=== PATIENT | male | born 1975 | race Hispanic/Latino ===

== ENCOUNTER 2017-04-21 20:01 | Emergency (ER) | payer OTHER ==
[2017-04-21] MEDS ORDERED: ACETAMINOPHEN EXTRA STRENGTH 500 MG TABLET ONE (20:23)
[2017-04-21] MEDS ORDERED: IBUPROFEN 600 MG TABLET ONE (20:35)
== END 2017-04-21 22:01 | disposition home or self-care (01) ==
LOC: EDH 20:01
DX: S90.31XA Contusion of right foot, initial encounter (principal); A08.4 Viral intestinal infection, unspecified; W22.8XXA Striking against or struck by other objects, initial encounter; Y93.89 Activity, other specified; Y92.098 Other place in other non-institutional residence as the place of occurrence of the external cause; Y99.8 Other external cause status
CPT/HCPCS: 73630; 87804

== ENCOUNTER 2018-05-08 18:10 | Emergency (ER) | payer OTHER ==
[2018-05-08] MEDS ORDERED: CLINDAMYCIN 600 MG/D5% WATER 50 ML IV ONE (18:52)
[2018-05-08] MEDS ORDERED: KETOROLAC TROMETHAMINE 15MG/ML ONE (18:52)
[2018-05-08 19:03] LABS: BASOPHILS % (AUTO) 0.6 % (0.0-5.0); EOSINOPHILS % (AUTO) 0.6 % (0.0-8.0); HEMATOCRIT 41.5 % (42-54); LYMPHOCYTES % (AUTO) 17.9 % (21.0-51.0); MEAN CORPUSCULAR HEMOGLOBIN 30.2 pg (27.0-33.0); MEAN CORPUSCULAR HGB CONC 34.3 g/dL (32.0-36.0); MEAN CORPUSCULAR VOLUME 88.1 fL (79-99); MONOCYTES % (AUTO) 7.1 % (3.0-13.0); NEUTROPHILS % (AUTO) 73.8 % (40.0-77.0); PLATELET COUNT (AUTO) 258 K/uL (130-400); RED BLOOD CELL COUNT(AUTO) 4.71 MIL/uL (4.50-6.20); RED CELL DISTRIBUTION WIDTH 13.4 % (11.0-15.5); WHITE BLOOD COUNT (AUTO) 10.3 K/uL (4.8-10.8)
[2018-05-08 19:12] LABS: CREATININE 1.2 mg/dL (0.5-1.5); POTASSIUM 3.5 mmol/L (3.5-5.1)
[2018-05-08 19:17] LABS: ALBUMIN 3.3 g/dL (3.5-5.0); BILIRUBIN,TOTAL 0.2 mg/dL (0.2-1.0); TOTAL PROTEIN, SERUM 7.9 g/dL (6.0-8.3)
== END 2018-05-08 20:05 | disposition home or self-care (01) ==
LOC: EDH 18:10
DX: L03.115 Cellulitis of right lower limb (principal)
CPT/HCPCS: 36415; 80053; 85025; 96365; 96375; 99283; J1885; J3490

== ENCOUNTER 2018-05-11 11:01 | Inpatient (IN) | payer SELFPAY ==
[~2018-05-11] VITALS: Ht 185.4 cm; Wt 119.0 kg
[2018-05-11 11:36] LABS: BASOPHILS % (AUTO) 0.4 % (0.0-5.0); EOSINOPHILS % (AUTO) 0.4 % (0.0-8.0); HEMATOCRIT 41.5 % (42-54); LYMPHOCYTES % (AUTO) 19.9 % (21.0-51.0); MEAN CORPUSCULAR HEMOGLOBIN 29.8 pg (27.0-33.0); MEAN CORPUSCULAR HGB CONC 33.9 g/dL (32.0-36.0); MEAN CORPUSCULAR VOLUME 87.9 fL (79-99); MONOCYTES % (AUTO) 7.1 % (3.0-13.0); NEUTROPHILS % (AUTO) 72.2 % (40.0-77.0); PLATELET COUNT (AUTO) 288 K/uL (130-400); RED BLOOD CELL COUNT(AUTO) 4.73 MIL/uL (4.50-6.20); RED CELL DISTRIBUTION WIDTH 13.7 % (11.0-15.5); WHITE BLOOD COUNT (AUTO) 6.2 K/uL (4.8-10.8)
[2018-05-11] MEDS ORDERED: CLINDAMYCIN 600 MG/D5% WATER 50 ML IV ONE (11:36)
[2018-05-11 11:53] LABS: CREATININE 1.2 mg/dL (0.5-1.5); POTASSIUM 3.7 mmol/L (3.5-5.1)
[2018-05-11 11:59] LABS: ALBUMIN 3.2 g/dL (3.5-5.0); BILIRUBIN,TOTAL 0.3 mg/dL (0.2-1.0); TOTAL PROTEIN, SERUM 7.6 g/dL (6.0-8.3)
[2018-05-11] MEDS ORDERED: SODIUM CHLORIDE 0.9% 500ML 500 ML IV ONE (13:51)
[2018-05-11] MEDS ORDERED: ZOSYN 3.375GM+NS 50ML 50 ML IV ONE (14:37)
[2018-05-11] MEDS ORDERED: SODIUM CHLORIDE 0.9% 1000ML 1,000 ML IV SCH (16:11)
[2018-05-11] MEDS ORDERED: DOXYCYCLINE 100MG+NS 250ML 250 ML IV SCH (16:15)
[2018-05-11] MEDS ORDERED: ACETAMINOPHEN-CODEINE 300/30MG TAB PO PRN ×2 (16:15)
[2018-05-11] MEDS ORDERED: ACETAMINOPHEN 325 MG TAB PO PRN ×2 (16:15)
[2018-05-11] MEDS ORDERED: HYDRALAZINE HCL 20 MG/ML VIAL IV PRN (16:15)
[2018-05-11] MEDS ORDERED: VANCOMYCIN PROTOCOL PER PHARMACY IV PRN (16:15)
[2018-05-11] MEDS ORDERED: ONDANSETRON HCL 4 MG/2 ML VIAL IV PRN (16:15)
[2018-05-11] MEDS ORDERED: VANCOMYCIN 1GM+NS 250ML 250 ML IV SCH (16:15)
[2018-05-11 16:39] LABS: HEMOGLOBIN A1C 6.1 % (4.0-6.0)
[2018-05-11] MEDS ORDERED: SODIUM CHLORIDE 0.9% 1000ML 1,000 ML IV ONE (17:22)
[2018-05-11] MEDS ORDERED: VANCOMYCIN 1GM+NS 250ML 250 ML IV ONE (17:22)
[2018-05-11 18:47] VITALS: BP 118/74
[2018-05-11] MEDS ORDERED: COMPOUND IV REFRIGERATED 1 EACH IVSOLN MISC PRN (19:45)
[2018-05-11] MEDS ORDERED: SULF1TAB42 PO (22:12)
[2018-05-11] MEDS ORDERED: ACET-66 PO (22:12)
[2018-05-11] MEDS ORDERED: TRAM50TA4 PO (22:12)
[2018-05-11] MEDS ORDERED: CEPH500C2 PO (22:12)
[2018-05-11] MEDS: FAMOTIDINE 20MG TAB 20 MG TAB PO SCH (22:25)
[2018-05-11 23:10] VITALS: BP 105/59
[2018-05-11] MEDS ORDERED: DOXYCYCLINE 100MG+NS 250ML 250 ML IV ONE (23:28)
[2018-05-12 03:15] VITALS: BP 90/48
[2018-05-12 05:54] LABS: HEMATOCRIT 38.8 % (42-54); MEAN CORPUSCULAR HEMOGLOBIN 29.7 pg (27.0-33.0); MEAN CORPUSCULAR HGB CONC 33.1 g/dL (32.0-36.0); MEAN CORPUSCULAR VOLUME 89.9 fL (79-99); PLATELET COUNT (AUTO) 289 K/uL (130-400); RED BLOOD CELL COUNT(AUTO) 4.32 MIL/uL (4.50-6.20); WHITE BLOOD COUNT (AUTO) 6.1 K/uL (4.8-10.8)
[2018-05-12 06:06] LABS: CREATININE 1.1 mg/dL (0.5-1.5); CRP QUANTITATIVE 35.1 mg/L (0.00-9.0); MAGNESIUM 2.1 mg/dL (1.80-2.40); PHOSPHORUS 3.3 mg/dL (2.5-4.9); POTASSIUM 4.2 mmol/L (3.5-5.1)
[2018-05-12] MEDS: VANCOMYCIN 1.75 GM in SODIUM CHLORIDE 0.9% 250 ML IV SCH ×2 (06:35→18:34)
[2018-05-12 08:00] VITALS: BP 94/54
[2018-05-12] MEDS: FAMOTIDINE 20MG TAB 20 MG TAB PO SCH ×2 (08:38→20:08)
[2018-05-12] MEDS: ZOSYN 3.375GM+NS 50ML 50 ML IV SCH ×2 (08:38→16:47)
[2018-05-12] MEDS: ENOXAPARIN SODIUM 40 MG/0.4 ML SYRINGE SQ SCH (09:00)
[2018-05-12 12:00] VITALS: BP 104/70
[2018-05-12] MEDS: SODIUM CHLORIDE 0.9% 1000ML 1,000 ML IV SCH (12:30)
[2018-05-12 16:00] VITALS: BP 105/69
[2018-05-12 19:00] VITALS: BP 126/67
[2018-05-12 23:00] VITALS: BP 108/53
[2018-05-13] VITALS (25 sets, daily range): BP systolic 90–127; BP diastolic 51–81
[2018-05-13] MEDS: ZOSYN 3.375GM+NS 50ML 50 ML IV SCH ×3 (02:49→16:22)
[2018-05-13 06:03] LABS: HEMATOCRIT 41.3 % (42-54); MEAN CORPUSCULAR HEMOGLOBIN 30.4 pg (27.0-33.0); MEAN CORPUSCULAR HGB CONC 34.2 g/dL (32.0-36.0); NUCLEATED RED BLOOD CELLS 0.1 % (0.0-0.19); PLATELET COUNT (AUTO) 287 K/uL (130-400); RED BLOOD CELL COUNT(AUTO) 4.64 MIL/uL (4.50-6.20); RED CELL DISTRIBUTION WIDTH 13.6 % (11.0-15.5); WHITE BLOOD COUNT (AUTO) 6.1 K/uL (4.8-10.8)
[2018-05-13] MEDS: VANCOMYCIN 1.75 GM in SODIUM CHLORIDE 0.9% 250 ML IV SCH ×2 (06:13→18:24)
[2018-05-13] MEDS: SODIUM CHLORIDE 0.9% 1000ML 1,000 ML IV SCH ×5 (06:14→21:08)
[2018-05-13 06:21] LABS: CREATININE 1.1 mg/dL (0.5-1.5); POTASSIUM 3.9 mmol/L (3.5-5.1)
[2018-05-13] MEDS ORDERED: LIDOCAINE PF 2% 5ML ABBOJECT ONE (07:42)
[2018-05-13] MEDS ORDERED: DEXAMETHASONE SOD PHOSPHATE 10MG/ML 1ML VIAL ONE (07:42)
[2018-05-13] MEDS ORDERED: SUCCINYLCHOLINE 200MG/10ML SYR ONE (07:42)
[2018-05-13] MEDS ORDERED: MIDAZOLAM HCL 1 MG/ML 2ML VIAL ONE (07:43)
[2018-05-13] MEDS ORDERED: NEOSTIGMINE 5MG/5ML SYR IV ONE (07:43)
[2018-05-13] MEDS ORDERED: GLYCOPYRROLATE 1 MG/5 ML SYRINGE ONE (07:43)
[2018-05-13] MEDS ORDERED: ROCURONIUM 10MG/1ML SYR 10 MG/ML ML ONE (07:43)
[2018-05-13] MEDS ORDERED: ONDANSETRON HCL 4 MG/2 ML VIAL ONE (07:43)
[2018-05-13] MEDS ORDERED: PROPOFOL 10 MG/ML 20ML VIAL IV ONE ×2 (07:43→07:57)
[2018-05-13] MEDS ORDERED: FENTANYL CITRATE PF 50 MCG/1 ML 2ML VIAL ONE (07:44)
[2018-05-13] MEDS: ENOXAPARIN SODIUM 40 MG/0.4 ML SYRINGE SQ SCH (10:42)
[2018-05-13] MEDS: FAMOTIDINE 20MG TAB 20 MG TAB PO SCH ×2 (10:42→21:08)
[2018-05-14] MEDS: ZOSYN 3.375GM+NS 50ML 50 ML IV SCH ×3 (00:40→17:38)
[2018-05-14 03:28] VITALS: BP 97/54
[2018-05-14] MEDS: SODIUM CHLORIDE 0.9% 1000ML 1,000 ML IV SCH ×2 (04:30→05:13)
[2018-05-14] MEDS: VANCOMYCIN 1.75 GM in SODIUM CHLORIDE 0.9% 250 ML IV SCH ×2 (05:30→18:36)
[2018-05-14 06:18] LABS: HEMATOCRIT 39.3 % (42-54); MEAN CORPUSCULAR HEMOGLOBIN 30.3 pg (27.0-33.0); MEAN CORPUSCULAR HGB CONC 34.2 g/dL (32.0-36.0); MEAN CORPUSCULAR VOLUME 88.6 fL (79-99); PLATELET COUNT (AUTO) 315 K/uL (130-400); RED BLOOD CELL COUNT(AUTO) 4.43 MIL/uL (4.50-6.20); RED CELL DISTRIBUTION WIDTH 13.5 % (11.0-15.5); WHITE BLOOD COUNT (AUTO) 10.2 K/uL (4.8-10.8)
[2018-05-14 06:40] LABS: CREATININE 1.1 mg/dL (0.5-1.5)
[2018-05-14 08:00] VITALS: BP 121/65
[2018-05-14] MEDS: ENOXAPARIN SODIUM 40 MG/0.4 ML SYRINGE SQ SCH (09:00)
[2018-05-14] MEDS: FAMOTIDINE 20MG TAB 20 MG TAB PO SCH ×2 (09:35→19:59)
[2018-05-14 12:00] VITALS: BP 121/73
[2018-05-14 16:00] VITALS: BP 114/70
[2018-05-14 19:00] VITALS: BP 121/75
[2018-05-14 23:43] VITALS: BP 129/65
[2018-05-15] MEDS: ZOSYN 3.375GM+NS 50ML 50 ML IV SCH ×2 (00:28→08:50)
[2018-05-15 04:06] VITALS: BP 121/75
[2018-05-15 05:29] LABS: HEMATOCRIT 41.1 % (42-54); MEAN CORPUSCULAR HEMOGLOBIN 29.5 pg (27.0-33.0); MEAN CORPUSCULAR VOLUME 89.4 fL (79-99); PLATELET COUNT (AUTO) 290 K/uL (130-400); RED CELL DISTRIBUTION WIDTH 13.4 % (11.0-15.5); WHITE BLOOD COUNT (AUTO) 7.2 K/uL (4.8-10.8)
[2018-05-15 05:40] LABS: POTASSIUM 4.2 mmol/L (3.5-5.1)
[2018-05-15] MEDS: VANCOMYCIN 1.75 GM in SODIUM CHLORIDE 0.9% 250 ML IV SCH (06:42)
[2018-05-15 08:00] VITALS: BP 121/66
[2018-05-15] MEDS: FAMOTIDINE 20MG TAB 20 MG TAB PO SCH (08:48)
[2018-05-15] MEDS: ENOXAPARIN SODIUM 40 MG/0.4 ML SYRINGE SQ SCH (08:50)
[2018-05-15 12:00] VITALS: BP 120/64
[2018-05-15] MEDS ORDERED: CLIN300C9 PO (12:02)
== END 2018-05-15 13:10 | disposition home or self-care (01) | DRG 603 ==
LOC: EDH 11:01 → EDHIP 11:02 → 3BH 18:35
PROVIDERS: ADMIT Internal Medicine; ATTEND Internal Medicine
PROC: 0J9L3ZZ Drainage of Right Upper Leg Subcutaneous Tissue and Fascia, Percutaneous Approach (ICD-10-PCS; principal; 2018-05-13 08:00)
DX: L03.115 Cellulitis of right lower limb (principal); L02.415 Cutaneous abscess of right lower limb; E66.9 Obesity, unspecified; B95.62 Methicillin resistant Staphylococcus aureus infection as the cause of diseases classified elsewhere; Z68.34 Body mass index [BMI] 34.0-34.9, adult
CPT/HCPCS: 36415; 76882; 80048; 80053; 80202; 82550; 83036; 83735; 84100; 85025; 85027; 85651; 86140; 87040; 87070; 87076; 87077; 87186; 87205; G0378; J0330; J1100; J1650; J2001; J2250; J2405; J2543; J2704; J2710; J3010; J3370; J3490; J7030; J7040

== ENCOUNTER 2018-09-07 07:16 | Inpatient (IN) | payer SELFPAY ==
[2018-09-07] VITALS (16 sets, daily range): BP systolic 101–125; BP diastolic 58–75
[~2018-09-07] VITALS: Ht 185.4 cm; Wt 109.1 kg
[~2018-09-07 07:16] MED LIST: ACET-66 PO; CLIN300C9 PO; TRAM50TA4 PO
[2018-09-07] MEDS ORDERED: SODIUM CHLORIDE 0.9% 1000ML 1,000 ML IV ONE ×2 (07:43→13:12)
[2018-09-07] MEDS ORDERED: KETOROLAC TROMETHAMINE 15MG/ML ONE (07:44)
[2018-09-07] MEDS ORDERED: ONDANSETRON HCL 4 MG/2 ML VIAL ONE (07:44)
[2018-09-07 07:48] LABS: BASOPHILS % (AUTO) 0.4 % (0.0-5.0); EOSINOPHILS % (AUTO) 2.2 % (0.0-8.0); HEMATOCRIT 41.4 % (42-54); LYMPHOCYTES % (AUTO) 18.9 % (21.0-51.0); MEAN CORPUSCULAR HEMOGLOBIN 28.4 pg (27.0-33.0); MEAN CORPUSCULAR HGB CONC 32.8 g/dL (32.0-36.0); MEAN CORPUSCULAR VOLUME 86.5 fL (79-99); MONOCYTES % (AUTO) 13.9 % (3.0-13.0); NEUTROPHILS % (AUTO) 64.6 % (40.0-77.0); PLATELET COUNT (AUTO) 209 K/uL (130-400); RED BLOOD CELL COUNT(AUTO) 4.78 MIL/uL (4.50-6.20); RED CELL DISTRIBUTION WIDTH 13.4 % (11.0-15.5)
[2018-09-07 07:58] LABS: CREATININE 0.8 mg/dL (0.5-1.5); POTASSIUM 3.8 mmol/L (3.5-5.1)
[2018-09-07 08:03] LABS: ALBUMIN 3.2 g/dL (3.5-5.0); BILIRUBIN,TOTAL 0.3 mg/dL (0.2-1.0)
[2018-09-07] MEDS ORDERED: IOHEXOL-350 75 ML VIAL IV ONE (08:51)
[2018-09-07] MEDS: SODIUM CHLORIDE 0.9% 1000ML 1,000 ML IV SCH ×2 (12:17→21:17)
[2018-09-07 12:20] LABS: APPEARANCE,URINE Clear (CLEAR); BILIRUBIN,URINE Negative (NEGATIVE); COLOR,URINE Yellow (YELLOW); GLUCOSE, URINE (UA) Negative (NEGATIVE); KETONES,URINE Negative (NEGATIVE); LEUKOCYTE ESTERASE ,URINE Negative (NEGATIVE); NITRATE,URINE Negative (NEGATIVE); OCCULT BLOOD,URINE Negative (NEGATIVE); PH,URINE 5.5 (5.0-8.0); PROTEIN,URINE Negative (NEGATIVE)
[2018-09-07] MEDS: LEVOFLOXACIN 500 MG/D5W 100 ML 100 ML IV SCH (12:30)
[2018-09-07] MEDS ORDERED: HYDRALAZINE HCL 20 MG/ML VIAL IV PRN (12:30)
[2018-09-07] MEDS ORDERED: ACETAMINOPHEN 325 MG TAB PO PRN ×2 (12:30)
[2018-09-07] MEDS ORDERED: MORPHINE SULFATE 2 MG/ML 1ML SYG IV PRN (12:30)
[2018-09-07] MEDS ORDERED: ONDANSETRON HCL 4 MG/2 ML VIAL IV PRN (12:30)
[2018-09-07] MEDS ORDERED: LEVOFLOXACIN 500 MG/D5W 100 ML 100 ML ONE (13:12)
[2018-09-07] MEDS: ALBUTEROL SULFATE 0.083% 2.5 MG/3 ML INH IH SCH ×2 (18:00→23:28)
[2018-09-07] MEDS: FAMOTIDINE/PF 20 MG/2 ML VIAL IV SCH (19:40)
[2018-09-07] MEDS ORDERED: MEPERIDINE-PF 50 MG/ML SYG ONE (19:55)
[2018-09-07] MEDS ORDERED: MIDAZOLAM HCL 1 MG/ML 2ML VIAL ONE (19:56)
[2018-09-08 01:03] VITALS: BP 110/87
[2018-09-08 04:00] VITALS: BP 98/67
[2018-09-08 04:54] LABS: HEMATOCRIT 37.8 % (42-54); MEAN CORPUSCULAR HEMOGLOBIN 29.2 pg (27.0-33.0); MEAN CORPUSCULAR HGB CONC 33.5 g/dL (32.0-36.0); MEAN CORPUSCULAR VOLUME 87.3 fL (79-99); PLATELET COUNT (AUTO) 188 K/uL (130-400); RED BLOOD CELL COUNT(AUTO) 4.33 MIL/uL (4.50-6.20); RED CELL DISTRIBUTION WIDTH 13.2 % (11.0-15.5); WHITE BLOOD COUNT (AUTO) 5.7 K/uL (4.8-10.8)
[2018-09-08 05:07] LABS: CREATININE 0.8 mg/dL (0.5-1.5); POTASSIUM 3.8 mmol/L (3.5-5.1)
[2018-09-08] MEDS: ALBUTEROL SULFATE 0.083% 2.5 MG/3 ML INH IH SCH ×3 (06:23→18:01)
[2018-09-08 08:00] VITALS: BP 108/64
--- NOTE | 2018-09-08 09:55 | NUR ---
ASSESSMENT: VASYL BAILEY (PA FOR DR ROSE) HERE AND ASSESSED PT AND REVIEWED RADIOLOGY RESULTS. REQUESTED RECORDS FOR 2011
--- NOTE | 2018-09-08 10:10 | NUR ---
ASSESSMENT: Sánchez BAILEY PA HERE AND DISCUSSED RADIOLOGY, COLONOSCOPY RESULTS WITH PT AND , WILL TALK WITH DR IVY FOR FURTHER ORDERS. BOTH VERBALIZE UNDERSTANDING.
[2018-09-08] MEDS: FAMOTIDINE/PF 20 MG/2 ML VIAL IV SCH ×2 (10:46→20:02)
[2018-09-08] MEDS: ENOXAPARIN SODIUM 40 MG/0.4 ML SYRINGE SQ SCH (10:47)
[2018-09-08 11:55] VITALS: BP 127/75
[2018-09-08] MEDS: LEVOFLOXACIN 500 MG/D5W 100 ML 100 ML IV SCH (12:06)
--- NOTE | 2018-09-08 12:10 | NUR ---
NUTRITION: SHANT 100% OF CL LQDS. MATEO PAIN
[2018-09-08 16:00] VITALS: BP 121/79
--- NOTE | 2018-09-08 16:40 | NUR ---
INITIAL: [facility] pt [facility] afternoon to discuss dcp. Pt states that prior to admission was living w girlfriend. He is independent w ambulation and ADLs. He does not own any DME or receive services. Per pt he feels safe and comfortable to return home at sd. Provided him w low income packet and prescription drug discount card. CM to continue to follow and wait for Md recommendations. Addendum: 09/09/18 at 1641 by PETE SINGLETARY Amended: Links added.
[2018-09-08] MEDS: SODIUM CHLORIDE 0.9% 1000ML 1,000 ML IV SCH (17:56)
--- NOTE | 2018-09-08 18:00 | NUR ---
TX: RECEIVING RESP TX BY RT PERSONNEL. LUNG CTA.
[2018-09-08 19:05] VITALS: BP 140/69
[2018-09-09] VITALS (7 sets, daily range): BP systolic 94–124; BP diastolic 60–81
[2018-09-09] MEDS: SODIUM CHLORIDE 0.9% 1000ML 1,000 ML IV SCH ×2 (03:34→14:04)
[2018-09-09 05:43] LABS: BASOPHILS % (AUTO) 0.5 % (0.0-5.0); EOSINOPHILS % (AUTO) 1.7 % (0.0-8.0); HEMATOCRIT 39.5 % (42-54); LYMPHOCYTES % (AUTO) 19.1 % (21.0-51.0); MEAN CORPUSCULAR HEMOGLOBIN 28.5 pg (27.0-33.0); MEAN CORPUSCULAR VOLUME 86.4 fL (79-99); NEUTROPHILS % (AUTO) 65.7 % (40.0-77.0); PLATELET COUNT (AUTO) 205 K/uL (130-400); RED BLOOD CELL COUNT(AUTO) 4.57 MIL/uL (4.50-6.20); RED CELL DISTRIBUTION WIDTH 13.4 % (11.0-15.5); WHITE BLOOD COUNT (AUTO) 5.3 K/uL (4.8-10.8)
[2018-09-09 05:53] LABS: CREATININE 0.9 mg/dL (0.5-1.5); POTASSIUM 3.8 mmol/L (3.5-5.1)
[2018-09-09] MEDS: FAMOTIDINE/PF 20 MG/2 ML VIAL IV SCH ×2 (09:22→21:11)
[2018-09-09] MEDS: ENOXAPARIN SODIUM 40 MG/0.4 ML SYRINGE SQ SCH (09:22)
[2018-09-09] MEDS: LEVOFLOXACIN 500 MG/D5W 100 ML 100 ML IV SCH (14:04)
[2018-09-10] MEDS: SODIUM CHLORIDE 0.9% 1000ML 1,000 ML IV SCH ×3 (00:59→21:46)
[2018-09-10 04:07] VITALS: BP 109/67
[2018-09-10 06:06] LABS: HEMATOCRIT 41.8 % (42-54); MEAN CORPUSCULAR HEMOGLOBIN 29.3 pg (27.0-33.0); MEAN CORPUSCULAR HGB CONC 33.8 g/dL (32.0-36.0); MEAN CORPUSCULAR VOLUME 86.7 fL (79-99); NUCLEATED RED BLOOD CELLS 0.1 % (0.0-0.19); PLATELET COUNT (AUTO) 200 K/uL (130-400); RED BLOOD CELL COUNT(AUTO) 4.82 MIL/uL (4.50-6.20); RED CELL DISTRIBUTION WIDTH 13.5 % (11.0-15.5); WHITE BLOOD COUNT (AUTO) 5.6 K/uL (4.8-10.8)
[2018-09-10 06:23] LABS: ALBUMIN 2.9 g/dL (3.5-5.0); BILIRUBIN,TOTAL 0.4 mg/dL (0.2-1.0); POTASSIUM 4.5 mmol/L (3.5-5.1); TOTAL PROTEIN, SERUM 6.9 g/dL (6.0-8.3)
[2018-09-10 07:30] VITALS: BP 113/71
[2018-09-10 11:00] VITALS: BP 125/78
[2018-09-10] MEDS: ENOXAPARIN SODIUM 40 MG/0.4 ML SYRINGE SQ SCH (11:46)
[2018-09-10] MEDS: LEVOFLOXACIN 500 MG/D5W 100 ML 100 ML IV SCH (11:46)
[2018-09-10] MEDS: FAMOTIDINE/PF 20 MG/2 ML VIAL IV SCH ×2 (11:47→20:05)
[2018-09-10 16:00] VITALS: BP 122/70
[2018-09-10 20:00] VITALS: BP 125/71
--- NOTE | 2018-09-10 20:15 | NUR ---
DR BARTON CONSULT-MD HERE TO EXPLAIN AND DISCUSS COLONOSCOPY RESULTS NOTING A LARGE OBSTRUCTING TUMOR MASS. BIOPSY RESULTS STILL PENDING, YET NEEDS TO HAVE TUMOR REMOVED. RECOMMENDED SURGERY: LAPAROSCOPIC EXTENDED RIGHT HEMICOLECTOMY POSSIBLE OPEN AND ITS ASSOCIATED RISKS EXPLAINED AND HE AGREED TO PROCEED. SURGERY TENTATIVELY PLANNED FOR Monday08/23/25 AT 0600 PENDING PRE-ALBUMIN LAB RESULTS.
[2018-09-11] VITALS: BP 132/58
[2018-09-11 04:00] VITALS: BP 111/68
[2018-09-11 07:51] VITALS: BP 122/64
[2018-09-11] MEDS: SODIUM CHLORIDE 0.9% 1000ML 1,000 ML IV SCH ×3 (08:53→20:58)
[2018-09-11] MEDS: FAMOTIDINE/PF 20 MG/2 ML VIAL IV SCH ×2 (08:53→20:34)
[2018-09-11] MEDS: ENOXAPARIN SODIUM 40 MG/0.4 ML SYRINGE SQ SCH (08:54)
[2018-09-11 11:38] VITALS: BP 107/61
[2018-09-11] MEDS: LEVOFLOXACIN 500 MG/D5W 100 ML 100 ML IV SCH (13:58)
[2018-09-11 16:21] VITALS: BP 101/58
--- NOTE | 2018-09-11 16:55 | NUR ---
DR. BARTON CALLED . REGARDING ANY RESULTS OF THE PREALUBMIN PREVIOUS ORD. LAB. STAFF WAS CALLED AND PER INFORMATION. LAB OF THE PRE ALUBMIN WAS DONE ON 2154 ON THE ORDER AND LAB WAS JUST EVENT MARKETING COORDINATOR TODAY AROUND 2 PM AND WAS A SEND OUT TO [facility] [place] [facility]. AND TURN AROUND RESULTS WERE COMING IN TOMMORROW. [address] BARTON WILL CANCEL SURGERY FOR TOMMORROW . SETUP AND TO INFORM PT OF OUTCOME.
[2018-09-11 20:00] VITALS: BP 104/57
[2018-09-12] VITALS: BP 104/66
[2018-09-12 04:09] VITALS: BP 114/66
[2018-09-12 06:09] LABS: HEMATOCRIT 40.9 % (42-54); MEAN CORPUSCULAR HEMOGLOBIN 29.2 pg (27.0-33.0); MEAN CORPUSCULAR HGB CONC 33.5 g/dL (32.0-36.0); MEAN CORPUSCULAR VOLUME 87.1 fL (79-99); PLATELET COUNT (AUTO) 218 K/uL (130-400); RED BLOOD CELL COUNT(AUTO) 4.69 MIL/uL (4.50-6.20); RED CELL DISTRIBUTION WIDTH 13.2 % (11.0-15.5); WHITE BLOOD COUNT (AUTO) 5.4 K/uL (4.8-10.8)
[2018-09-12 06:25] LABS: ALBUMIN 2.8 g/dL (3.5-5.0); BILIRUBIN,TOTAL 0.3 mg/dL (0.2-1.0); POTASSIUM 3.8 mmol/L (3.5-5.1); TOTAL PROTEIN, SERUM 6.7 g/dL (6.0-8.3)
[2018-09-12 06:56] LABS: INR 1.06 (0.85-1.15); PROTHROMBIN TIME 11.1 SEC (9.6-11.6)
[2018-09-12 08:00] VITALS: BP 113/65
[2018-09-12] MEDS: FAMOTIDINE/PF 20 MG/2 ML VIAL IV SCH ×2 (09:55→21:57)
[2018-09-12] MEDS: SODIUM CHLORIDE 0.9% 1000ML 1,000 ML IV SCH ×2 (10:10→21:57)
[2018-09-12] MEDS: ENOXAPARIN SODIUM 40 MG/0.4 ML SYRINGE SQ SCH (10:16)
[2018-09-12 12:00] VITALS: BP 109/74
[2018-09-12] MEDS: LEVOFLOXACIN 500 MG/D5W 100 ML 100 ML IV SCH (12:32)
[2018-09-12 16:00] VITALS: BP 112/81
[2018-09-12 20:00] VITALS: BP 112/64
[2018-09-13] VITALS (25 sets, daily range): BP systolic 115–153; BP diastolic 53–86
[2018-09-13 04:44] LABS: BASOPHILS % (AUTO) 0.8 % (0.0-5.0); CREATININE 1.1 mg/dL (0.5-1.5); HEMATOCRIT 40.6 % (42-54); LYMPHOCYTES % (AUTO) 41.3 % (21.0-51.0); MEAN CORPUSCULAR HGB CONC 33.8 g/dL (32.0-36.0); MEAN CORPUSCULAR VOLUME 85.8 fL (79-99); MONOCYTES % (AUTO) 8.3 % (3.0-13.0); NEUTROPHILS % (AUTO) 45.6 % (40.0-77.0); PLATELET COUNT (AUTO) 248 K/uL (130-400); POTASSIUM 3.9 mmol/L (3.5-5.1); RED BLOOD CELL COUNT(AUTO) 4.74 MIL/uL (4.50-6.20); RED CELL DISTRIBUTION WIDTH 13.5 % (11.0-15.5); WHITE BLOOD COUNT (AUTO) 6.3 K/uL (4.8-10.8)
[2018-09-13] MEDS: SODIUM CHLORIDE 0.9% 1000ML 1,000 ML IV SCH (08:17)
[2018-09-13] MEDS: ENOXAPARIN SODIUM 40 MG/0.4 ML SYRINGE SQ SCH (09:00)
[2018-09-13] MEDS: FAMOTIDINE/PF 20 MG/2 ML VIAL IV SCH ×2 (09:40→21:01)
[2018-09-13] MEDS: LEVOFLOXACIN 500 MG/D5W 100 ML 100 ML IV SCH (12:54)
[2018-09-13] MEDS ORDERED: CEFOXITIN SODIUM 2 GM VIAL ONE (12:57)
[2018-09-13] MEDS ORDERED: LIDOCAINE PF 2% 5ML ABBOJECT ONE (13:07)
[2018-09-13] MEDS ORDERED: ROCURONIUM 10MG/1ML SYR 10 MG/ML ML ONE ×2 (13:08→14:30)
[2018-09-13] MEDS ORDERED: PROPOFOL 10 MG/ML 20ML VIAL IV ONE (13:08)
[2018-09-13] MEDS ORDERED: ONDANSETRON HCL 4 MG/2 ML VIAL ONE ×2 (13:08→17:37)
[2018-09-13] MEDS ORDERED: FENTANYL CITRATE PF 50 MCG/1 ML 5ML AMP IV ONE ×2 (13:10→17:17)
[2018-09-13] MEDS ORDERED: FAMOTIDINE/PF 20 MG/2 ML VIAL IV ONE (13:38)
[2018-09-13] MEDS ORDERED: BUPIVACAINE/PF 0.5% 30ML VIAL ONE (13:42)
[2018-09-13] MEDS ORDERED: MIDAZOLAM HCL 1 MG/ML 2ML VIAL ONE (14:29)
[2018-09-13] MEDS ORDERED: GLYCOPYRROLATE 1 MG/5 ML SYRINGE ONE (17:29)
[2018-09-13] MEDS ORDERED: NEOSTIGMINE 5MG/5ML SYR IV ONE (17:30)
[2018-09-13] MEDS: LACTATED RINGERS 1000ML 1,000 ML IV SCH (17:46)
[2018-09-13] MEDS ORDERED: KETOROLAC TROMETHAMINE 30MG/ML IM PRN (18:00)
[2018-09-13] MEDS ORDERED: ACETAMINOPHEN 325 MG TAB PO PRN (18:00)
[2018-09-13] MEDS ORDERED: MORPHINE SULFATE 4 MG/1ML SYG IV PRN (18:00)
[2018-09-13] MEDS ORDERED: MEPERIDINE-PF 25 MG/ML SYG ONE (18:07)
[2018-09-13] MEDS: ZOSYN 3.375GM+NS 50ML 50 ML IV SCH (20:54)
[2018-09-13] MEDS: MORPHINE SULFATE 4 MG/1ML SYG IV PRN (20:59)
[2018-09-13] MEDS ORDERED: FAMOTIDINE/PF 20 MG/2 ML VIAL IV SCH (21:00)
[2018-09-14] VITALS (9 sets, daily range): BP systolic 124–159; BP diastolic 72–92
[2018-09-14] MEDS: MORPHINE SULFATE 4 MG/1ML SYG IV PRN ×2 (00:42→05:07)
--- NOTE | 2018-09-14 04:50 | NUR ---
IS ordered RESPIRATORY THERAPIST ATTEMPTED TO PROVIDE TEACHING FOR INCENTIVE SPIROMETER. PATIENT ASLEEP AT THE TIME, REQUESTED THAT THERAPIST RETURN WHEN THE PATIENT WOKE UP. PATIENT SLEPT THROUGHOUT THE NIGHT. WILL ENDORSE TO THE FOLLOWING NURSE TO HAVE RESPIRATORY PROVIDE IS TEACHING TO PATIENT.
[2018-09-14] MEDS: ZOSYN 3.375GM+NS 50ML 50 ML IV SCH ×3 (05:05→21:29)
[2018-09-14 05:12] LABS: BASOPHILS % (AUTO) 0.3 % (0.0-5.0); HEMATOCRIT 40.2 % (42-54); LYMPHOCYTES % (AUTO) 9.3 % (21.0-51.0); MEAN CORPUSCULAR HEMOGLOBIN 29.3 pg (27.0-33.0); MEAN CORPUSCULAR HGB CONC 34.1 g/dL (32.0-36.0); MEAN CORPUSCULAR VOLUME 85.8 fL (79-99); MONOCYTES % (AUTO) 6.9 % (3.0-13.0); NEUTROPHILS % (AUTO) 83.5 % (40.0-77.0); NUCLEATED RED BLOOD CELLS 0.1 % (0.0-0.19); PLATELET COUNT (AUTO) 225 K/uL (130-400); RED BLOOD CELL COUNT(AUTO) 4.69 MIL/uL (4.50-6.20); RED CELL DISTRIBUTION WIDTH 13.3 % (11.0-15.5)
[2018-09-14 05:31] LABS: POTASSIUM 4.5 mmol/L (3.5-5.1)
[2018-09-14 05:32] LABS: CREATININE 1.1 mg/dL (0.5-1.5)
[2018-09-14] MEDS: FAMOTIDINE/PF 20 MG/2 ML VIAL IV SCH ×2 (08:31→21:29)
[2018-09-14] MEDS: ENOXAPARIN SODIUM 40 MG/0.4 ML SYRINGE SQ SCH (08:32)
[2018-09-14] MEDS: LACTATED RINGERS 1000ML 1,000 ML IV SCH (08:32)
[2018-09-14] MEDS: LEVOFLOXACIN 500 MG/D5W 100 ML 100 ML IV SCH (12:16)
[2018-09-14] MEDS: KETOROLAC TROMETHAMINE 30MG/ML IV PRN ×2 (12:16→19:28)
--- NOTE | 2018-09-14 20:20 | NUR ---
PM Assessment Pt post op day 1, reminded only on clear liquid diet & encourage to continue doing his IS while awake & importance of moving around & to ambulate around the unit to prevent complication of Ileus due to being sedentary, agreed. I also explained the side effect of too much pain medication when in terms of gut motility.
[2018-09-15] MEDS: KETOROLAC TROMETHAMINE 30MG/ML IV PRN ×4 (00:31→21:49)
[2018-09-15] MEDS: LACTATED RINGERS 1000ML 1,000 ML IV SCH ×2 (01:49→10:06)
[2018-09-15] MEDS ORDERED: GLUCAGON 1MG KIT 1 MG ML IM PRN (02:00)
[2018-09-15] MEDS ORDERED: DEXTROSE 50%-WATER 50 ML DISP.SYRIN IV PRN (02:00)
[2018-09-15 03:42] VITALS: BP 118/73
[2018-09-15 05:12] LABS: BASOPHILS % (AUTO) 0.4 % (0.0-5.0); EOSINOPHILS % (AUTO) 0.2 % (0.0-8.0); HEMATOCRIT 39.3 % (42-54); LYMPHOCYTES % (AUTO) 10.2 % (21.0-51.0); MEAN CORPUSCULAR HEMOGLOBIN 28.4 pg (27.0-33.0); MEAN CORPUSCULAR HGB CONC 33.5 g/dL (32.0-36.0); MEAN CORPUSCULAR VOLUME 84.9 fL (79-99); MONOCYTES % (AUTO) 7.2 % (3.0-13.0); PLATELET COUNT (AUTO) 236 K/uL (130-400); RED BLOOD CELL COUNT(AUTO) 4.64 MIL/uL (4.50-6.20); RED CELL DISTRIBUTION WIDTH 13.2 % (11.0-15.5); WHITE BLOOD COUNT (AUTO) 12.7 K/uL (4.8-10.8)
[2018-09-15] MEDS: ZOSYN 3.375GM+NS 50ML 50 ML IV SCH ×3 (05:17→21:40)
[2018-09-15 05:24] LABS: CREATININE 1.1 mg/dL (0.5-1.5); POTASSIUM 3.5 mmol/L (3.5-5.1)
[2018-09-15 08:00] VITALS: BP 141/91
[2018-09-15] MEDS ORDERED: MORPHINE SULFATE 2 MG/ML 1ML SYG IM PRN (08:45)
[2018-09-15] MEDS: ENOXAPARIN SODIUM 40 MG/0.4 ML SYRINGE SQ SCH (10:06)
[2018-09-15] MEDS: FAMOTIDINE/PF 20 MG/2 ML VIAL IV SCH ×2 (10:06→21:40)
[2018-09-15 12:00] VITALS: BP 131/78
[2018-09-15] MEDS: LEVOFLOXACIN 500 MG/D5W 100 ML 100 ML IV SCH (13:10)
[2018-09-15 16:00] VITALS: BP 121/77
[2018-09-15 19:31] VITALS: BP 142/77
[2018-09-15 23:41] VITALS: BP 139/84
[2018-09-16 02:50] VITALS: BP 139/84
[2018-09-16] MEDS: ALBUTEROL SULFATE 0.083% 2.5 MG/3 ML INH IH PRN (03:19)
[2018-09-16] MEDS: KETOROLAC TROMETHAMINE 30MG/ML IV PRN (04:05)
[2018-09-16] MEDS: LACTATED RINGERS 1000ML 1,000 ML IV SCH (04:10)
[2018-09-16] MEDS: ZOSYN 3.375GM+NS 50ML 50 ML IV SCH ×3 (05:39→21:14)
[2018-09-16 06:14] LABS: BASOPHILS % (AUTO) 0.1 % (0.0-5.0); EOSINOPHILS % (AUTO) 0.1 % (0.0-8.0); LYMPHOCYTES % (AUTO) 8.2 % (21.0-51.0); MEAN CORPUSCULAR HGB CONC 33.6 g/dL (32.0-36.0); MEAN CORPUSCULAR VOLUME 86.2 fL (79-99); MONOCYTES % (AUTO) 5.5 % (3.0-13.0); NEUTROPHILS % (AUTO) 86.1 % (40.0-77.0); PLATELET COUNT (AUTO) 306 K/uL (130-400); RED BLOOD CELL COUNT(AUTO) 5.46 MIL/uL (4.50-6.20); RED CELL DISTRIBUTION WIDTH 13.7 % (11.0-15.5); WHITE BLOOD COUNT (AUTO) 14.6 K/uL (4.8-10.8)
[2018-09-16 06:24] LABS: CREATININE 1.6 mg/dL (0.5-1.5); POTASSIUM 3.3 mmol/L (3.5-5.1)
[2018-09-16 08:00] VITALS: BP 104/59
--- NOTE | 2018-09-16 08:15 | NUR ---
ALERT AND AWAKE, UP IN THE CHAIR THE PATIENT HAD JUST EXPERIENCED EMESIS OF GREEN BILE AND WAS MEDICATED BY THE NIGHT NURSE FOR ABDOMINAL PAIN AND NAUSEA. SLIGHTLY ELEVATED TEMP WAS RECORDED AND THE HOSPITALIST PLUMBING CONTRACTOR WAS MADE AWARE. PATIENT WAS ENCOURAGED TO AMBULATE AND TO USE INCENTIVE SPIROMETRY TO PREVENT POST-OP COMPLICATION AND VOICE UNDERSTANDING. HE REPORTED NOT PASSING GAS AT THIS TIME. WILL CONTINUE TO MONITOR.
[2018-09-16] MEDS: ONDANSETRON HCL 4 MG/2 ML VIAL IVP PRN ×2 (08:30→16:28)
[2018-09-16] MEDS ORDERED: MORPHINE SULFATE 2 MG/ML 1ML SYG IV PRN (08:45)
[2018-09-16] MEDS ORDERED: LIDOCAINE HCL-MPF 1% 2ML VIAL IVP PRN (09:00)
[2018-09-16] MEDS ORDERED: POTASSIUM CHLORIDE 10% ELIXIR 20 MEQ/15 ML UDCUP PO PRN (09:00)
[2018-09-16] MEDS ORDERED: POTASSIUM CHLORIDE 10MEQ/100ML 100 ML IV PRN (09:00)
[2018-09-16] MEDS ORDERED: SODIUM CHLORIDE 0.9% 500ML 500 ML IV SCH (09:00)
[2018-09-16] MEDS: FAMOTIDINE/PF 20 MG/2 ML VIAL IV SCH ×2 (09:06→21:14)
[2018-09-16] MEDS: ENOXAPARIN SODIUM 40 MG/0.4 ML SYRINGE SQ SCH (09:09)
[2018-09-16] MEDS ORDERED: SODIUM CHLORIDE 0.9% 1000ML 1,000 ML IV STA (09:28)
--- NOTE | 2018-09-16 09:40 | NUR ---
LACTIC ACID OF 4.5 WAS REPORTED TO HOSPITALIST SUNIL GARCIA AND NEW ORDERS RECEIVED FOR NS BOLUS. PATIENT WAS NOTIFIED OF NEW ORDERS.
[2018-09-16] MEDS ORDERED: SODIUM CHLORIDE 0.9% 1000ML 1,000 ML IV ONE ×2 (10:34→12:22)
[2018-09-16] MEDS: METOCLOPRAMIDE 10 MG/2 ML VIAL IVP SCH (11:10)
[2018-09-16 12:00] VITALS: BP 109/67
[2018-09-16] MEDS: LEVOFLOXACIN 500 MG/D5W 100 ML 100 ML IV SCH (12:40)
[2018-09-16] MEDS ORDERED: HYDROMORPHONE HCL 2 MG/ML VIAL IVP PRN (13:30)
[2018-09-16] MEDS ORDERED: KETOROLAC TROMETHAMINE 30MG/ML IM PRN (13:30)
[2018-09-16] MEDS ORDERED: CHLORPROMAZINE HCL 25 MG/ML 1ML AMP IM SCH (13:30)
--- NOTE | 2018-09-16 13:45 | NUR ---
DR WHITE ROUNDED AND PATIENT STATUS REPORTED TO HIM. HE ALSO RECOMMENDS NPO STATUS. NEW ORDERS RECEIVED FROM HIM.
[2018-09-16 16:00] VITALS: BP 112/68
[2018-09-16] MEDS: SODIUM CHLORIDE 0.9% 1000ML 1,000 ML IV SCH (16:00)
[2018-09-16 19:36] VITALS: BP 148/97
[2018-09-17 00:28] VITALS: BP 116/68
[2018-09-17] MEDS: SODIUM CHLORIDE 0.9% 1000ML 1,000 ML IV SCH ×4 (01:45→23:59)
[2018-09-17 03:57] VITALS: BP 114/86
[2018-09-17] MEDS: ZOSYN 3.375GM+NS 50ML 50 ML IV SCH ×3 (06:25→21:26)
[2018-09-17 06:35] LABS: BASOPHILS % (AUTO) 0.3 % (0.0-5.0); HEMATOCRIT 42.5 % (42-54); LYMPHOCYTES % (AUTO) 5.4 % (21.0-51.0); MEAN CORPUSCULAR HEMOGLOBIN 28.6 pg (27.0-33.0); MEAN CORPUSCULAR HGB CONC 33.2 g/dL (32.0-36.0); MEAN CORPUSCULAR VOLUME 85.9 fL (79-99); MONOCYTES % (AUTO) 7.7 % (3.0-13.0); NEUTROPHILS % (AUTO) 86.6 % (40.0-77.0); PLATELET COUNT (AUTO) 301 K/uL (130-400); RED BLOOD CELL COUNT(AUTO) 4.95 MIL/uL (4.50-6.20); RED CELL DISTRIBUTION WIDTH 14.1 % (11.0-15.5); WHITE BLOOD COUNT (AUTO) 16.4 K/uL (4.8-10.8)
[2018-09-17 06:41] LABS: CREATININE 1.9 mg/dL (0.5-1.5); MAGNESIUM 1.3 mg/dL (1.80-2.40)
[2018-09-17 07:59] VITALS: BP 128/80
[2018-09-17] MEDS ORDERED: HYDROMORPHONE 1 MG/1 ML AMP IVP PRN (08:45)
[2018-09-17] MEDS ORDERED: BISACODYL 10 MG SUPP.RECT RC SCH (08:45)
[2018-09-17] MEDS: FAMOTIDINE/PF 20 MG/2 ML VIAL IV SCH ×2 (09:49→21:26)
[2018-09-17] MEDS: ACETAMINOPHEN-CODEINE 300/30MG TAB PO SCH ×3 (09:50→21:28)
[2018-09-17] MEDS: ENOXAPARIN SODIUM 40 MG/0.4 ML SYRINGE SQ SCH (09:55)
[2018-09-17] MEDS: METOCLOPRAMIDE 10 MG/2 ML VIAL IVP SCH ×2 (11:00→17:46)
[2018-09-17 12:00] VITALS: BP 122/72
--- NOTE | 2018-09-17 14:53 | NUR ---
RDSCREEN - LOS X 10 Pt POD 4 Lap Hemicolectomy. Pt NPO as per MD order d/t abdominal pain and emesis. as per EMR. Pt previously with [facility] op PO intake until 09/16/18. Possible ileus as per EMR. RD to follow up for continued POC. Pt monitored labs: BUN 30, Cr 1.9, GFR 41, Glu 130, Ca 8.4, Mg 1.30, Alb 2.8. Pt LBM 09/13/18. RD to continue to monitor. Addendum: 09/17/18 at [address] RD Amended: Links added.
[2018-09-17] MEDS: ALBUTEROL SULFATE 0.083% 2.5 MG/3 ML INH IH PRN ×3 (14:59→21:15)
[2018-09-17 16:00] VITALS: BP 126/73
[2018-09-17] MEDS: MAGNESIUM 2GM PREMIX 50ML 50 ML IV PRN (18:06)
[2018-09-17 20:00] VITALS: BP 104/57
[2018-09-17] MEDS ORDERED: CHLORPROMAZINE HCL 25 MG/ML 1ML AMP IM SCH (21:00)
[2018-09-17] MEDS ORDERED: BISACODYL 10 MG SUPP.RECT RC ONE (21:15)
--- NOTE | 2018-09-17 22:16 | NUR ---
ACTIVITY PATIENT WALKING IN HALLWAY.
[2018-09-18] VITALS (7 sets, daily range): BP systolic 103–144; BP diastolic 55–87
[2018-09-18] MEDS: ALBUTEROL SULFATE 0.083% 2.5 MG/3 ML INH IH PRN ×6 (01:29→23:10)
[2018-09-18] MEDS: ACETAMINOPHEN-CODEINE 300/30MG TAB PO SCH ×4 (02:43→20:45)
[2018-09-18] MEDS: METOCLOPRAMIDE 10 MG/2 ML VIAL IVP SCH ×3 (05:17→17:39)
[2018-09-18] MEDS: ZOSYN 3.375GM+NS 50ML 50 ML IV SCH ×3 (05:17→21:40)
[2018-09-18] MEDS: SODIUM CHLORIDE 0.9% 1000ML 1,000 ML IV SCH ×2 (05:21→17:39)
[2018-09-18 05:26] LABS: HEMATOCRIT 37.7 % (42-54); MEAN CORPUSCULAR HEMOGLOBIN 28.7 pg (27.0-33.0); MEAN CORPUSCULAR HGB CONC 33.2 g/dL (32.0-36.0); MEAN CORPUSCULAR VOLUME 86.5 fL (79-99); PLATELET COUNT (AUTO) 274 K/uL (130-400); RED BLOOD CELL COUNT(AUTO) 4.36 MIL/uL (4.50-6.20); RED CELL DISTRIBUTION WIDTH 13.8 % (11.0-15.5); WHITE BLOOD COUNT (AUTO) 19.8 K/uL (4.8-10.8)
[2018-09-18 05:34] LABS: CREATININE 1.3 mg/dL (0.5-1.5); POTASSIUM 4.1 mmol/L (3.5-5.1)
[2018-09-18] MEDS: FAMOTIDINE/PF 20 MG/2 ML VIAL IV SCH ×2 (09:25→21:40)
[2018-09-18] MEDS: ENOXAPARIN SODIUM 40 MG/0.4 ML SYRINGE SQ SCH (09:25)
[2018-09-18] MEDS ORDERED: CHLORPROMAZINE HCL 25 MG/ML 1ML AMP IM SCH (22:00)
[2018-09-18] MEDS ORDERED: CHLORPROMAZINE HCL 25 MG/ML 1ML AMP ONE (22:34)
[2018-09-19] MEDS: ACETAMINOPHEN-CODEINE 300/30MG TAB PO SCH ×4 (02:45→22:30)
[2018-09-19] MEDS: SODIUM CHLORIDE 0.9% 1000ML 1,000 ML IV SCH (03:28)
[2018-09-19 03:51] VITALS: BP 136/77
[2018-09-19] MEDS: ZOSYN 3.375GM+NS 50ML 50 ML IV SCH ×3 (05:40→21:14)
[2018-09-19 05:50] LABS: BASOPHILS % (AUTO) 0.3 % (0.0-5.0); EOSINOPHILS % (AUTO) 0.8 % (0.0-8.0); MEAN CORPUSCULAR HEMOGLOBIN 28.8 pg (27.0-33.0); MEAN CORPUSCULAR HGB CONC 33.5 g/dL (32.0-36.0); MEAN CORPUSCULAR VOLUME 85.9 fL (79-99); MONOCYTES % (AUTO) 9.3 % (3.0-13.0); NEUTROPHILS % (AUTO) 86.6 % (40.0-77.0); PLATELET COUNT (AUTO) 280 K/uL (130-400); RED BLOOD CELL COUNT(AUTO) 3.96 MIL/uL (4.50-6.20); RED CELL DISTRIBUTION WIDTH 13.9 % (11.0-15.5); WHITE BLOOD COUNT (AUTO) 19.7 K/uL (4.8-10.8)
[2018-09-19 06:03] LABS: POTASSIUM 3.8 mmol/L (3.5-5.1)
[2018-09-19] MEDS: METOCLOPRAMIDE 10 MG/2 ML VIAL IVP SCH ×3 (06:53→17:17)
[2018-09-19] MEDS: ALBUTEROL SULFATE 0.083% 2.5 MG/3 ML INH IH PRN ×5 (07:29→22:44)
[2018-09-19] MEDS ORDERED: SODIUM CHLORIDE 0.9% 1000ML 1,000 ML IV SCH (07:45)
[2018-09-19 08:00] VITALS: BP 144/84
[2018-09-19] MEDS: FAMOTIDINE/PF 20 MG/2 ML VIAL IV SCH ×2 (09:13→21:14)
[2018-09-19] MEDS: ENOXAPARIN SODIUM 40 MG/0.4 ML SYRINGE SQ SCH (09:14)
[2018-09-19] MEDS: DOCUSATE SODIUM 100 MG CAP PO PRN ×2 (09:47→22:13)
[2018-09-19 12:00] VITALS: BP 134/85
[2018-09-19 16:00] VITALS: BP 132/81
[2018-09-19 20:36] VITALS: BP 133/88
[2018-09-20 00:35] VITALS: BP 131/84
[2018-09-20] MEDS: ACETAMINOPHEN-CODEINE 300/30MG TAB PO SCH ×4 (02:45→21:08)
[2018-09-20 04:47] VITALS: BP 140/79
[2018-09-20] MEDS: ZOSYN 3.375GM+NS 50ML 50 ML IV SCH ×3 (05:43→21:09)
[2018-09-20 05:54] LABS: BASOPHILS % (AUTO) 0.2 % (0.0-5.0); EOSINOPHILS % (AUTO) 2.2 % (0.0-8.0); HEMATOCRIT 32.9 % (42-54); LYMPHOCYTES % (AUTO) 3.3 % (21.0-51.0); MEAN CORPUSCULAR HEMOGLOBIN 28.4 pg (27.0-33.0); MEAN CORPUSCULAR HGB CONC 33.4 g/dL (32.0-36.0); MONOCYTES % (AUTO) 10.9 % (3.0-13.0); NEUTROPHILS % (AUTO) 83.4 % (40.0-77.0); PLATELET COUNT (AUTO) 359 K/uL (130-400); RED BLOOD CELL COUNT(AUTO) 3.87 MIL/uL (4.50-6.20); RED CELL DISTRIBUTION WIDTH 14.1 % (11.0-15.5); WHITE BLOOD COUNT (AUTO) 21.4 K/uL (4.8-10.8)
[2018-09-20 05:59] LABS: CREATININE 0.9 mg/dL (0.5-1.5); POTASSIUM 4.2 mmol/L (3.5-5.1)
[2018-09-20] MEDS: ALBUTEROL SULFATE 0.083% 2.5 MG/3 ML INH IH PRN ×5 (06:57→22:28)
[2018-09-20 08:00] VITALS: BP 128/78
[2018-09-20] MEDS: FAMOTIDINE/PF 20 MG/2 ML VIAL IV SCH ×2 (09:19→21:08)
[2018-09-20] MEDS: ENOXAPARIN SODIUM 40 MG/0.4 ML SYRINGE SQ SCH (09:20)
--- NOTE | 2018-09-20 10:00 | NUR ---
UPDATE W PATIENT SPOKE TO PT AT BEDSIDE BRIEFLY ABOUT IS , WALKING,ETC PATH REPORT GIVEN TO DEWEY OCHOA, AND PRIMARY RN PENDING ONCOLOGY Addendum: 09/20/18 at 1545 by DAVID SCHMIDT RN CM Amended: Links added.
[2018-09-20] MEDS: METOCLOPRAMIDE 10 MG/2 ML VIAL IVP SCH ×2 (11:26→16:42)
[2018-09-20 12:00] VITALS: BP 132/74
[2018-09-20] MEDS ORDERED: FUROSEMIDE 10 MG/ML 4ML VIAL IV SCH (12:15)
--- NOTE | 2018-09-20 13:45 | NUR ---
RD Follow up Pt tolerating Full liquid diet with no report of GI distress and PO intake at 75%. Pt states desire for food. Pt LBM 09/19/18. Pt monitored labs: Na 134, Cl 99, Ca 7.8. RD rec to advance diet as tolerated when medically feasible. RD to continue to monitor. Please notify RD as nutritional concerns arise. Thank you. Addendum: 09/20/18 at [address]7 [address] A [address] RD Amended: Links added.
[2018-09-20] MEDS ORDERED: DIATR MEGLU/DIATRIZOATE SODIUM 30 ML BOTTLE ONE (14:55)
--- NOTE | 2018-09-20 15:00 | NUR ---
INFECTIOUS DISEASE DR. CORDOVA IN TO SEE PATIENT. NEW ORDERS RECEIVED.
--- NOTE | 2018-09-20 15:40 | NUR ---
ONCOLOGY DR. MCMAHAN IN TO SEE PATIENT AT THIS TIME. NEW ORDERS RECEIVED.
[2018-09-20 16:00] VITALS: BP 133/76
[2018-09-20] MEDS ORDERED: IOHEXOL-350 75 ML VIAL IV ONE (18:36)
[2018-09-20 20:00] VITALS: BP 133/83
[2018-09-20] MEDS: ONDANSETRON HCL 4 MG/2 ML VIAL IVP PRN (21:47)
[2018-09-21 00:12] VITALS: BP 129/73
[2018-09-21] MEDS: ALBUTEROL SULFATE 0.083% 2.5 MG/3 ML INH IH PRN ×3 (01:37→18:29)
[2018-09-21] MEDS: ACETAMINOPHEN-CODEINE 300/30MG TAB PO SCH ×4 (02:45→21:26)
[2018-09-21 04:10] VITALS: BP 114/75
[2018-09-21] MEDS: METOCLOPRAMIDE 10 MG/2 ML VIAL IVP SCH ×3 (05:58→17:11)
[2018-09-21] MEDS: ZOSYN 3.375GM+NS 50ML 50 ML IV SCH ×3 (05:58→20:47)
[2018-09-21 06:37] LABS: BASOPHILS % (AUTO) 0.2 % (0.0-5.0); EOSINOPHILS % (AUTO) 1.4 % (0.0-8.0); HEMATOCRIT 33.1 % (42-54); LYMPHOCYTES % (AUTO) 3.8 % (21.0-51.0); MEAN CORPUSCULAR HEMOGLOBIN 28.5 pg (27.0-33.0); MEAN CORPUSCULAR HGB CONC 33.6 g/dL (32.0-36.0); MEAN CORPUSCULAR VOLUME 84.8 fL (79-99); MONOCYTES % (AUTO) 10.8 % (3.0-13.0); NEUTROPHILS % (AUTO) 83.8 % (40.0-77.0); PLATELET COUNT (AUTO) 369 K/uL (130-400); RED CELL DISTRIBUTION WIDTH 14.2 % (11.0-15.5); WHITE BLOOD COUNT (AUTO) 19.5 K/uL (4.8-10.8)
[2018-09-21 06:58] LABS: CREATININE 0.9 mg/dL (0.5-1.5); POTASSIUM 3.3 mmol/L (3.5-5.1)
[2018-09-21 07:00] VITALS: BP 128/77
[2018-09-21] MEDS: ENOXAPARIN SODIUM 40 MG/0.4 ML SYRINGE SQ SCH (09:00)
[2018-09-21] MEDS: FAMOTIDINE/PF 20 MG/2 ML VIAL IV SCH ×2 (09:08→20:47)
--- NOTE | 2018-09-21 10:37 | NUR ---
TO GI LAB PATIENT TRANSPORTED TO GI LAB FOR PERCUTANEOUS DRAIN PLACEMENT. TRANSPORTED BY KEVIN MCPHERSON. PATIENT IN STABLE CONDITION.
[2018-09-21 12:00] VITALS: BP 141/78
--- NOTE | 2018-09-21 12:30 | NUR ---
CT GD DRAINAGE CATHETER PLACEMENT PROCEDURE PERFORMED BY DR Melody BROWN. PUNCTURE SITE LLQ . PATIENT TOLERATED PROCEDURE WELL. 8FR PIGTAIL CATHETER PLACED TO PELVIC FLUID COLLECTION AND CONNECTED TO DRAINAGE BAG. CATHETER SUTURED IN PLACE AND SECURED WITH STAY-FIX DRESSING. SPECIMEN COLLECTED AND SENT TO LAB. END OF PROCEDURE AT 1215. REPORT GIVEN TO Jan BRADFORD LVN AND PATIENT TRANSPORTED TO [facility] VIA BED AT 1230. AAO X3 WITH NO C/O PAIN.
--- NOTE | 2018-09-21 12:50 | NUR ---
BACK FROM GI LAB PATIENT RETURNED FROM GI LAB POST 8FR. PIGTAIL CATHETER TO LLQ DRAINING SEROUS FLUID TO COLLECTION BAG. WILL CONTINUE TO MONITOR.
[2018-09-21 16:00] VITALS: BP 109/64
[2018-09-21] MEDS: ONDANSETRON HCL 4 MG/2 ML VIAL IVP PRN (17:26)
[2018-09-21] MEDS: POTASSIUM CHLORIDE 20 MEQ ERTAB PO PRN (18:09)
[2018-09-21 19:20] VITALS: BP 127/72
[2018-09-22 00:17] VITALS: BP 132/79
[2018-09-22] MEDS: POTASSIUM CHLORIDE 20 MEQ ERTAB PO PRN ×3 (00:57→21:45)
[2018-09-22] MEDS: ACETAMINOPHEN-CODEINE 300/30MG TAB PO SCH ×4 (02:45→18:33)
[2018-09-22 04:08] VITALS: BP 129/75
[2018-09-22] MEDS: ZOSYN 3.375GM+NS 50ML 50 ML IV SCH ×3 (04:28→20:17)
[2018-09-22 05:07] LABS: BASOPHILS % (AUTO) 0.3 % (0.0-5.0); EOSINOPHILS % (AUTO) 1.1 % (0.0-8.0); HEMATOCRIT 32.3 % (42-54); LYMPHOCYTES % (AUTO) 4.8 % (21.0-51.0); MEAN CORPUSCULAR HEMOGLOBIN 28.3 pg (27.0-33.0); MEAN CORPUSCULAR HGB CONC 33.4 g/dL (32.0-36.0); MEAN CORPUSCULAR VOLUME 84.8 fL (79-99); MONOCYTES % (AUTO) 9.8 % (3.0-13.0); PLATELET COUNT (AUTO) 397 K/uL (130-400); RED BLOOD CELL COUNT(AUTO) 3.81 MIL/uL (4.50-6.20); RED CELL DISTRIBUTION WIDTH 14.6 % (11.0-15.5); WHITE BLOOD COUNT (AUTO) 17.5 K/uL (4.8-10.8)
[2018-09-22 05:20] LABS: CREATININE 0.8 mg/dL (0.5-1.5); POTASSIUM 3.2 mmol/L (3.5-5.1)
[2018-09-22] MEDS ORDERED: POTASSIUM CHLORIDE 10% ELIXIR 20 MEQ/15 ML UDCUP PO PRN (05:45)
[2018-09-22] MEDS ORDERED: POTASSIUM CHLORIDE 20MEQ/100ML 100 ML IV PRN (05:45)
[2018-09-22] MEDS ORDERED: LIDOCAINE HCL-MPF 1% 2ML VIAL IVP PRN (05:45)
[2018-09-22] MEDS: MAGNESIUM 2GM PREMIX 50ML 50 ML IV PRN (06:28)
[2018-09-22] MEDS: METOCLOPRAMIDE 10 MG/2 ML VIAL IVP SCH ×3 (06:57→18:31)
[2018-09-22 07:00] VITALS: BP 126/85
[2018-09-22] MEDS: ALBUTEROL SULFATE 0.083% 2.5 MG/3 ML INH IH PRN ×2 (07:18→21:59)
[2018-09-22 11:00] VITALS: BP 129/82
[2018-09-22] MEDS: FAMOTIDINE/PF 20 MG/2 ML VIAL IV SCH ×2 (11:44→20:17)
[2018-09-22] MEDS: ENOXAPARIN SODIUM 40 MG/0.4 ML SYRINGE SQ SCH (11:46)
[2018-09-22] MEDS ORDERED: MAGNESIUM 2GM PREMIX 50ML 50 ML IV PRN (12:15)
--- NOTE | 2018-09-22 14:00 | NUR ---
DR. CORDOVA Called Dr. Cordova to his cell phone to inform him of consult. No answer. Notified Dr. Sandoval; she is aware and stated to inform of consult on Monday if he is still not answering tomorrow.
[2018-09-22 16:00] VITALS: BP 123/80
[2018-09-22 19:12] VITALS: BP 110/72
[2018-09-23 00:12] VITALS: BP 123/77
[2018-09-23] MEDS: ACETAMINOPHEN-CODEINE 300/30MG TAB PO SCH ×5 (01:51→23:43)
[2018-09-23 04:12] VITALS: BP 119/80
[2018-09-23] MEDS: ZOSYN 3.375GM+NS 50ML 50 ML IV SCH ×2 (04:27→13:05)
[2018-09-23 06:36] LABS: BASOPHILS % (AUTO) 0.2 % (0.0-5.0); EOSINOPHILS % (AUTO) 1.5 % (0.0-8.0); HEMATOCRIT 33.3 % (42-54); LYMPHOCYTES % (AUTO) 8.2 % (21.0-51.0); MEAN CORPUSCULAR HEMOGLOBIN 28.7 pg (27.0-33.0); MEAN CORPUSCULAR HGB CONC 33.5 g/dL (32.0-36.0); MEAN CORPUSCULAR VOLUME 85.6 fL (79-99); MONOCYTES % (AUTO) 9.4 % (3.0-13.0); NEUTROPHILS % (AUTO) 80.7 % (40.0-77.0); PLATELET COUNT (AUTO) 422 K/uL (130-400); RED BLOOD CELL COUNT(AUTO) 3.89 MIL/uL (4.50-6.20); WHITE BLOOD COUNT (AUTO) 15.6 K/uL (4.8-10.8)
[2018-09-23 06:50] LABS: CREATININE 0.9 mg/dL (0.5-1.5); MAGNESIUM 1.9 mg/dL (1.80-2.40); POTASSIUM 3.9 mmol/L (3.5-5.1)
[2018-09-23 07:00] VITALS: BP 103/78
[2018-09-23] MEDS: METOCLOPRAMIDE 10 MG/2 ML VIAL IVP SCH ×3 (07:00→17:08)
[2018-09-23] MEDS: FAMOTIDINE/PF 20 MG/2 ML VIAL IV SCH ×2 (09:43→21:03)
[2018-09-23] MEDS: ENOXAPARIN SODIUM 40 MG/0.4 ML SYRINGE SQ SCH (09:43)
[2018-09-23] MEDS: ALBUTEROL SULFATE 0.083% 2.5 MG/3 ML INH IH PRN ×2 (10:49→21:18)
[2018-09-23 12:00] VITALS: BP 114/71
[2018-09-23] MEDS: FLUCONAZOLE 400 MG/NS 200 ML 200 ML IV SCH (13:02)
[2018-09-23] MEDS: MAGNESIUM 2GM PREMIX 50ML 50 ML IV PRN (14:56)
[2018-09-23 16:00] VITALS: BP 130/81
[2018-09-23] MEDS: DOCUSATE SODIUM 100 MG CAP PO PRN (17:11)
[2018-09-23 19:22] VITALS: BP 112/74
[2018-09-24] VITALS (7 sets, daily range): BP systolic 119–131; BP diastolic 64–86
[2018-09-24] MEDS: ACETAMINOPHEN-CODEINE 300/30MG TAB PO SCH ×3 (06:00→18:46)
[2018-09-24 06:27] LABS: BASOPHILS % (AUTO) 0.3 % (0.0-5.0); EOSINOPHILS % (AUTO) 1.3 % (0.0-8.0); HEMATOCRIT 33.2 % (42-54); MEAN CORPUSCULAR HEMOGLOBIN 27.9 pg (27.0-33.0); MEAN CORPUSCULAR HGB CONC 33.4 g/dL (32.0-36.0); MEAN CORPUSCULAR VOLUME 83.6 fL (79-99); MONOCYTES % (AUTO) 8.4 % (3.0-13.0); PLATELET COUNT (AUTO) 465 K/uL (130-400); RED BLOOD CELL COUNT(AUTO) 3.96 MIL/uL (4.50-6.20); RED CELL DISTRIBUTION WIDTH 14.2 % (11.0-15.5); WHITE BLOOD COUNT (AUTO) 15.8 K/uL (4.8-10.8)
[2018-09-24 06:35] LABS: CREATININE 0.9 mg/dL (0.5-1.5); POTASSIUM 3.5 mmol/L (3.5-5.1)
[2018-09-24] MEDS: POTASSIUM CHLORIDE 20 MEQ ERTAB PO PRN (06:53)
[2018-09-24] MEDS: FAMOTIDINE/PF 20 MG/2 ML VIAL IV SCH ×2 (09:20→23:15)
[2018-09-24] MEDS: ENOXAPARIN SODIUM 40 MG/0.4 ML SYRINGE SQ SCH (09:21)
[2018-09-24] MEDS: METOCLOPRAMIDE 10 MG/2 ML VIAL IVP SCH ×3 (09:24→16:39)
[2018-09-24] MEDS: FLUCONAZOLE 400 MG/NS 200 ML 200 ML IV SCH (09:24)
[2018-09-24] MEDS: ALBUTEROL SULFATE 0.083% 2.5 MG/3 ML INH IH PRN ×2 (14:33→23:29)
--- NOTE | 2018-09-24 15:00 | NUR ---
SPOKE TO PT RE INSURANCE CALL DOWNSTAIRS TO HR RE INSURANCE, START DATE OF JULY -VERIFIED MARY INSURANCE DOES NOT START UNTILL OCTOBER, EXPLAINED TO PT , VERBALIZED UNDERSTANDING SPOKE BRIEFLY TO DR. MCMAHAN- HE STATES THAT PT WILL LIKELY NOT NEED CHEMO OR RADIATION FO RHT [place] CANCER. PT CONTINUES WITH DRAINAGE CATHETER Addendum: 09/24/18 at 2015 by DAVID SCHMIDT RN CM Amended: Links added.
[2018-09-25] MEDS: POTASSIUM CHLORIDE 20 MEQ ERTAB PO PRN ×3 (00:25→11:52)
[2018-09-25] MEDS: ACETAMINOPHEN-CODEINE 300/30MG TAB PO SCH ×4 (00:26→18:00)
[2018-09-25 03:25] VITALS: BP 117/73
[2018-09-25 04:58] LABS: HEMATOCRIT 33.9 % (42-54); MEAN CORPUSCULAR HEMOGLOBIN 28.1 pg (27.0-33.0); MEAN CORPUSCULAR HGB CONC 33.1 g/dL (32.0-36.0); PLATELET COUNT (AUTO) 462 K/uL (130-400); RED BLOOD CELL COUNT(AUTO) 3.99 MIL/uL (4.50-6.20); RED CELL DISTRIBUTION WIDTH 14.3 % (11.0-15.5); WHITE BLOOD COUNT (AUTO) 13.5 K/uL (4.8-10.8)
[2018-09-25 05:08] LABS: CREATININE 0.9 mg/dL (0.5-1.5); POTASSIUM 3.5 mmol/L (3.5-5.1)
[2018-09-25] MEDS ORDERED: DIATR MEGLU/DIATRIZOATE SODIUM 30 ML BOTTLE ONE (07:41)
[2018-09-25 08:00] VITALS: BP 135/80
[2018-09-25] MEDS ORDERED: IOHEXOL-350 75 ML VIAL IV ONE (08:03)
[2018-09-25] MEDS: FAMOTIDINE/PF 20 MG/2 ML VIAL IV SCH ×2 (08:28→23:01)
[2018-09-25] MEDS: METOCLOPRAMIDE 10 MG/2 ML VIAL IVP SCH ×3 (08:28→17:07)
[2018-09-25] MEDS: FLUCONAZOLE 400 MG/NS 200 ML 200 ML IV SCH (08:29)
[2018-09-25] MEDS: ENOXAPARIN SODIUM 40 MG/0.4 ML SYRINGE SQ SCH (08:29)
[2018-09-25] MEDS: ALBUTEROL SULFATE 0.083% 2.5 MG/3 ML INH IH PRN ×2 (09:35→14:03)
[2018-09-25 12:00] VITALS: BP 120/71
--- NOTE | 2018-09-25 12:46 | NUR ---
INFORMED THAT PATIENT REFUSED ORAL CONTRAST TODAY BUT AGREED TO IV.
[2018-09-25 16:00] VITALS: BP 129/79
[2018-09-25 19:20] VITALS: BP 142/79
--- NOTE | 2018-09-25 21:18 | NUR ---
MD ORALIA BARTON MADE ROUNDS AND SPOKE TO PATIENT ABOUT PLAN TO BE DISCHARGE. PATIENT IS IMPROVING ON WBCs, AFEBRILE, HAVING BOWEL MOVEMENTS AND PASSING GAS. MD BARTON STATES THAT PATIENT IS OK TO BE DISCHARGE BY HER STANDPOINT.
[2018-09-25 23:40] VITALS: BP 119/75
[2018-09-26 03:35] VITALS: BP 112/69
[2018-09-26] MEDS: ACETAMINOPHEN-CODEINE 300/30MG TAB PO SCH ×4 (06:00→17:25)
[2018-09-26 06:26] LABS: HEMATOCRIT 34.7 % (42-54); MEAN CORPUSCULAR HEMOGLOBIN 27.4 pg (27.0-33.0); MEAN CORPUSCULAR HGB CONC 32.3 g/dL (32.0-36.0); MEAN CORPUSCULAR VOLUME 84.8 fL (79-99); PLATELET COUNT (AUTO) 515 K/uL (130-400); RED BLOOD CELL COUNT(AUTO) 4.09 MIL/uL (4.50-6.20); RED CELL DISTRIBUTION WIDTH 14.4 % (11.0-15.5)
[2018-09-26 06:33] LABS: CREATININE 0.9 mg/dL (0.5-1.5); POTASSIUM 4.2 mmol/L (3.5-5.1)
[2018-09-26] MEDS: ALBUTEROL SULFATE 0.083% 2.5 MG/3 ML INH IH PRN ×3 (06:33→18:59)
[2018-09-26 07:30] VITALS: BP 117/75
[2018-09-26] MEDS: METOCLOPRAMIDE 10 MG/2 ML VIAL IVP SCH ×3 (07:30→17:24)
[2018-09-26] MEDS: FAMOTIDINE/PF 20 MG/2 ML VIAL IV SCH ×2 (09:34→21:52)
[2018-09-26] MEDS: ENOXAPARIN SODIUM 40 MG/0.4 ML SYRINGE SQ SCH (09:35)
[2018-09-26 11:00] VITALS: BP 117/83
[2018-09-26] MEDS: FLUCONAZOLE 400 MG/NS 200 ML 200 ML IV SCH (11:14)
--- NOTE | 2018-09-26 15:13 | NUR ---
RD Follow up Pt POD 12. Pt continues to tolerate current diet with no report of GI distress and fair PO intake. Pt with no nutrition complaints or concerns at time of visit. Pt LBM 09/25/18. Pt monitored labs: Cl 100, Alb 2.8. RD to continue to monitor. Please notify RD as nutritional concerns arise. Thank you. Addendum: 09/26/18 at 15[address] RD Amended: Links added.
[2018-09-26 16:00] VITALS: BP 115/77
[2018-09-26 20:00] VITALS: BP 113/77
[2018-09-26] MEDS: ZOSYN 3.375GM+NS 50ML 50 ML IV SCH (21:52)
[2018-09-27] VITALS: BP 113/74
[2018-09-27] MEDS: ACETAMINOPHEN-CODEINE 300/30MG TAB PO SCH ×3 (00:12→11:30)
[2018-09-27 04:00] VITALS: BP 130/82
[2018-09-27] MEDS: ZOSYN 3.375GM+NS 50ML 50 ML IV SCH ×2 (05:09→14:19)
[2018-09-27] MEDS: ALBUTEROL SULFATE 0.083% 2.5 MG/3 ML INH IH PRN ×2 (06:12→09:45)
[2018-09-27 07:00] VITALS: BP 114/73
[2018-09-27 07:40] LABS: BASOPHILS % (AUTO) 0.3 % (0.0-5.0); EOSINOPHILS % (AUTO) 1.3 % (0.0-8.0); HEMATOCRIT 33.5 % (42-54); LYMPHOCYTES % (AUTO) 7.4 % (21.0-51.0); MEAN CORPUSCULAR HEMOGLOBIN 27.9 pg (27.0-33.0); MEAN CORPUSCULAR HGB CONC 33.3 g/dL (32.0-36.0); MONOCYTES % (AUTO) 7.8 % (3.0-13.0); NEUTROPHILS % (AUTO) 83.2 % (40.0-77.0); PLATELET COUNT (AUTO) 454 K/uL (130-400); RED BLOOD CELL COUNT(AUTO) 3.98 MIL/uL (4.50-6.20); RED CELL DISTRIBUTION WIDTH 14.2 % (11.0-15.5); WHITE BLOOD COUNT (AUTO) 12.6 K/uL (4.8-10.8)
[2018-09-27 07:47] LABS: CREATININE 0.9 mg/dL (0.5-1.5); POTASSIUM 3.9 mmol/L (3.5-5.1)
[2018-09-27] MEDS: FAMOTIDINE/PF 20 MG/2 ML VIAL IV SCH (08:06)
[2018-09-27] MEDS: METOCLOPRAMIDE 10 MG/2 ML VIAL IVP SCH ×2 (08:06→11:29)
[2018-09-27] MEDS: ENOXAPARIN SODIUM 40 MG/0.4 ML SYRINGE SQ SCH (08:07)
[2018-09-27 11:00] VITALS: BP 99/64
[2018-09-27] MEDS: FLUCONAZOLE 400 MG/NS 200 ML 200 ML IV SCH (11:30)
[2018-09-27 16:00] VITALS: BP 103/68
--- NOTE | 2018-09-27 17:00 | NUR ---
COMMUNITY RESOURCE PKT- DC PLAN PT UPDATED WITH [facility] AND ENCOURAGED TO APPLY WITH [facility] OR [facility]; STATES HISMOM GOES TO [facility] AND WILL TRY THERE FOR NOW. PT ALSO GIVEN MEDICATION DISCOUNT COUPONS Addendum: 09/28/18 at 0731 by DAVID SCHMIDT RN CM Amended: Links added.
--- NOTE | 2018-09-27 18:40 | NUR ---
PATIENT DISCHARGE PATIENT DISCHARGED, IV DISCONTINUED, CATHLON INTACT, BLEEDING CONTROLLED, PATIENT TOLERATED WITHOUT INCIDENT.
== END 2018-09-27 18:40 | disposition home or self-care (01) | DRG 329 ==
LOC: EDH 07:16 → EDHIP 07:17 → 3BH 14:05
PROVIDERS: ADMIT Internal Medicine; ATTEND Internal Medicine
PROC: 0DBL8ZZ Excision of Transverse Colon, Via Natural or Artificial Opening Endoscopic (ICD-10-PCS; principal; 2018-09-07)
PROC: 0DNW4ZZ Release Peritoneum, Percutaneous Endoscopic Approach (ICD-10-PCS; 2018-09-13)
PROC: 0DTF4ZZ Resection of Right Large Intestine, Percutaneous Endoscopic Approach (ICD-10-PCS; 2018-09-13 13:04)
PROC: 5A09357 Assistance with Respiratory Ventilation, Less than 24 Consecutive Hours, Continuous Positive Airway Pressure (ICD-10-PCS; 2018-09-19)
PROC: 5A09357 Assistance with Respiratory Ventilation, Less than 24 Consecutive Hours, Continuous Positive Airway Pressure (ICD-10-PCS; 2018-09-20)
PROC: 0W9J30Z Drainage of Pelvic Cavity with Drainage Device, Percutaneous Approach (ICD-10-PCS; 2018-09-21)
DX: C18.2 Malignant neoplasm of ascending colon (principal); K65.1 Peritoneal abscess; J98.11 Atelectasis; K56.1 Intussusception; K56.7 Ileus, unspecified; N17.9 Acute kidney failure, unspecified; C18.3 Malignant neoplasm of hepatic flexure; D12.3 Benign neoplasm of transverse colon; D64.9 Anemia, unspecified; E66.9 Obesity, unspecified; E83.42 Hypomagnesemia; E87.6 Hypokalemia; K21.9 Gastro-esophageal reflux disease without esophagitis; K57.30 Diverticulosis of large intestine without perforation or abscess without bleeding; K66.0 Peritoneal adhesions (postprocedural) (postinfection); K76.0 Fatty (change of) liver, not elsewhere classified; E16.2 Hypoglycemia, unspecified; N50.89 Other specified disorders of the male genital organs; Z83.3 Family history of diabetes mellitus; Z90.49 Acquired absence of other specified parts of digestive tract; Z82.49 Family history of ischemic heart disease and other diseases of the circulatory system; Z68.31 Body mass index [BMI] 31.0-31.9, adult
CPT/HCPCS: 10030; 36415; 44389; 45381; 45385; 71045; 74018; 74021; 74177; 74178; 76705; 77012; 80048; 80053; 81003; 82948; 83605; 83690; 83735; 84134; 85025; 85027; 85610; 87040; 87071; 87205; 88305; 88307; 93005; 94640; 94660; 94664; 99291; A4344; A4606; G0378; J0694; J1170; J1450; J1650; J1885; J1940; J1956; J2001; J2175; J2250; J2270; J2405; J2543; J2704; J2710; J2765; J3010; J3230; J3475; J3490; J7030; J7120; Q9963; Q9967

== ENCOUNTER 2018-09-28 08:01 | Emergency (ER) | payer SELFPAY ==
[2018-09-28 08:41] LABS: BASOPHILS % (AUTO) 0.7 % (0.0-5.0); EOSINOPHILS % (AUTO) 1.2 % (0.0-8.0); HEMATOCRIT 33.3 % (42-54); LYMPHOCYTES % (AUTO) 8.7 % (21.0-51.0); MEAN CORPUSCULAR HEMOGLOBIN 27.6 pg (27.0-33.0); MEAN CORPUSCULAR HGB CONC 32.9 g/dL (32.0-36.0); MEAN CORPUSCULAR VOLUME 83.8 fL (79-99); MONOCYTES % (AUTO) 7.2 % (3.0-13.0); NEUTROPHILS % (AUTO) 82.2 % (40.0-77.0); PLATELET COUNT (AUTO) 501 K/uL (130-400); RED BLOOD CELL COUNT(AUTO) 3.98 MIL/uL (4.50-6.20); RED CELL DISTRIBUTION WIDTH 13.9 % (11.0-15.5); WHITE BLOOD COUNT (AUTO) 11.4 K/uL (4.8-10.8)
[2018-09-28 09:01] LABS: CREATININE 0.8 mg/dL (0.5-1.5)
[2018-09-28 09:04] LABS: B-TYPE NATRIURETIC PEPTIDE 19 pg/mL (0-100)
[2018-09-28 09:05] LABS: ALBUMIN 2.2 g/dL (3.5-5.0); BILIRUBIN,DIRECT 0.1 mg/dL (0.0-0.3); BILIRUBIN,TOTAL 0.4 mg/dL (0.2-1.0); TOTAL PROTEIN, SERUM 7.9 g/dL (6.0-8.3)
[2018-09-28] MEDS ORDERED: IOHEXOL 350 MG/ML 100ML INFUS..BTL IV ONE (09:50)
[2018-09-28] MEDS ORDERED: MORPHINE SULFATE 4 MG/1ML SYG ONE (11:10)
[2018-09-28] MEDS ORDERED: FENTANYL CITRATE PF 50 MCG/1 ML 2ML VIAL ONE (12:01)
[2018-09-28] MEDS ORDERED: ZOSYN 3.375GM+NS 50ML 50 ML IV ONE (12:07)
[2018-09-28] MEDS ORDERED: KETOROLAC TROMETHAMINE 30MG/ML ONE (12:43)
[2018-09-28] MEDS ORDERED: AZITHROMYCIN 500MG+NS 250ML 250 ML IV ONE (12:43)
== END 2018-09-28 15:10 | disposition home or self-care (01) ==
LOC: EDH 08:01
DX: J98.11 Atelectasis (principal); R06.00 Dyspnea, unspecified; C18.9 Malignant neoplasm of colon, unspecified; Z90.49 Acquired absence of other specified parts of digestive tract
CPT/HCPCS: 36415; 71045; 71275; 80048; 80076; 82550; 83605; 83880; 84484; 85025; 87040 ×2; 93005; 96365; 96367; 96375; 99285; J0456; J1885; J2270; J2543; J3010; Q9967

== ENCOUNTER → 2018-10-18 | Outpatient (CLI) | payer OTHER | END | disposition home or self-care (01) | LOC: RAH 09:49 | PROVIDERS: ATTEND Student in an Organized Health Care Education/Training Program | DX: K36 Other appendicitis (principal) | CPT/HCPCS: 74176 ==

== ENCOUNTER 2018-10-19 11:49 | Day surgery (SDC) | payer OTHER ==
[~2018-10-19] VITALS: Ht 182.9 cm; Wt 96.6 kg
[2018-10-19 12:39] VITALS: BP 123/78
[2018-10-19] MEDS ORDERED: LIDOCAINE HCL 1% MDV 50ML VIAL ONE (13:00)
[2018-10-19] MEDS ORDERED: IODIXANOL 320 MG/ML 100 ML VIAL ONE (13:00)
[2018-10-19 13:39] VITALS: BP 114/75
== END 2018-10-19 13:48 | disposition home or self-care (01) ==
LOC: DAH 11:49
PROVIDERS: ATTEND Student in an Organized Health Care Education/Training Program
DX: C18.2 Malignant neoplasm of ascending colon (principal); E11.9 Type 2 diabetes mellitus without complications; K21.9 Gastro-esophageal reflux disease without esophagitis; K56.609 Unspecified intestinal obstruction, unspecified as to partial versus complete obstruction; Z98.0 Intestinal bypass and anastomosis status; Z90.49 Acquired absence of other specified parts of digestive tract
CPT/HCPCS: 49424; 76080; A4606; J1644; J3490; Q9967

== ENCOUNTER → 2018-10-24 | Outpatient (CLI) | payer OTHER ==
[~2018-10-24] MED LIST changes: +ACET-2743 PO; -ACET-66 PO; +BISA5TAB12 PO; -CLIN300C9 PO; +DICY20TA11 PO; +OMEP40CA37 PO; -TRAM50TA4 PO
== END | disposition home or self-care (01) ==
LOC: LAB 15:46
PROVIDERS: ATTEND Internal Medicine Gastroenterology
DX: R10.9 Unspecified abdominal pain (principal)
CPT/HCPCS: 36415; 87338

== ENCOUNTER 2018-10-29 05:59 | Day surgery (SDC) | payer OTHER ==
[2018-10-29] VITALS (12 sets, daily range): BP systolic 102–114; BP diastolic 68–79
[~2018-10-29 05:59] MED LIST changes: -ACET-2743 PO; -BISA5TAB12 PO; -DICY20TA11 PO; -OMEP40CA37 PO; +SODIUM CHLORIDE 0.9% 1000ML 1,000 ML IV ONE
[2018-10-29] MEDS ORDERED: DICY20TA11 PO (06:33)
[2018-10-29] MEDS ORDERED: OMEP40CA37 PO (06:33)
[2018-10-29] MEDS ORDERED: BISA5TAB12 PO (06:33)
[2018-10-29] MEDS ORDERED: LIDOCAINE HCL-MPF 2% 5ML VIAL ONE (06:33)
[2018-10-29] MEDS ORDERED: ACET-2743 PO (06:33)
[2018-10-29] MEDS ORDERED: PROPOFOL 10 MG/ML 20ML VIAL IV ONE (06:33)
== END 2018-10-29 07:55 | disposition home or self-care (01) ==
LOC: DAH 05:59 → ENDO 05:59
PROVIDERS: ATTEND Internal Medicine
DX: K31.89 Other diseases of stomach and duodenum (principal); K26.9 Duodenal ulcer, unspecified as acute or chronic, without hemorrhage or perforation; K21.9 Gastro-esophageal reflux disease without esophagitis; Z79.899 Other long term (current) drug therapy; Z86.010 Personal history of colon polyps; Z85.038 Personal history of other malignant neoplasm of large intestine; Z90.49 Acquired absence of other specified parts of digestive tract; Z72.89 Other problems related to lifestyle; Z82.49 Family history of ischemic heart disease and other diseases of the circulatory system; Z83.3 Family history of diabetes mellitus
CPT/HCPCS: 43236; 43239; J2704; J3490; J7030

== ENCOUNTER 2018-11-02 09:53 | Emergency (ER) | payer OTHER ==
[~2018-11-02 09:53] MED LIST changes: +ACET-2743 PO; +BISA5TAB12 PO; +DICY20TA11 PO; +OMEP40CA37 PO; -SODIUM CHLORIDE 0.9% 1000ML 1,000 ML IV ONE
[2018-11-02] MEDS ORDERED: ONDANSETRON HCL 4 MG/2 ML VIAL ONE (10:15)
[2018-11-02 10:24] LABS: BASOPHILS % (AUTO) 0.3 % (0.0-5.0); EOSINOPHILS % (AUTO) 0.9 % (0.0-8.0); HEMATOCRIT 38.5 % (42-54); LYMPHOCYTES % (AUTO) 19.3 % (21.0-51.0); MEAN CORPUSCULAR HEMOGLOBIN 27.7 pg (27.0-33.0); MEAN CORPUSCULAR HGB CONC 33.4 g/dL (32.0-36.0); MEAN CORPUSCULAR VOLUME 83.1 fL (79-99); MONOCYTES % (AUTO) 10.5 % (3.0-13.0); PLATELET COUNT (AUTO) 451 K/uL (130-400); RED BLOOD CELL COUNT(AUTO) 4.63 MIL/uL (4.50-6.20); RED CELL DISTRIBUTION WIDTH 16.6 % (11.0-15.5); WHITE BLOOD COUNT (AUTO) 5.9 K/uL (4.8-10.8)
[2018-11-02 10:32] LABS: CARBON DIOXIDE 26 mmol/L (21-32); CHLORIDE 98 mmol/L (101-111); CREATININE 1.2 mg/dL (0.5-1.5); GLOMERULAR FILTR. RATE CALC 70 mL/min (>60); GLUCOSE,RANDOM 129 mg/dL (70-105); POTASSIUM 3.6 mmol/L (3.5-5.1); SODIUM SERUM 134 mmol/L (136-145); UREA NITROGEN, BLOOD 26 mg/dL (7-18)
[2018-11-02] MEDS ORDERED: KETOROLAC TROMETHAMINE 30MG/ML ONE (10:33)
[2018-11-02 10:37] LABS: ALANINE AMINOTRANSFERASE 10 U/L (12-78); ASPARTATE AMINOTRANSFERASE 13 U/L (10-37); BILIRUBIN,TOTAL 0.6 mg/dL (0.2-1.0)
[2018-11-02 10:39] LABS: LIPASE < 50 U/L (114-286)
[2018-11-02] MEDS ORDERED: IOHEXOL-350 75 ML VIAL IV ONE (11:21)
[2018-11-02] MEDS ORDERED: DIATR MEGLU/DIATRIZOATE SODIUM 30 ML BOTTLE ONE ×2 (12:44→13:00)
== END 2018-11-02 13:45 | disposition left against medical advice (07) ==
LOC: EDH 09:53
DX: R10.31 Right lower quadrant pain (principal); R10.32 Left lower quadrant pain; R19.7 Diarrhea, unspecified; R11.2 Nausea with vomiting, unspecified; Z90.49 Acquired absence of other specified parts of digestive tract; Z85.038 Personal history of other malignant neoplasm of large intestine
CPT/HCPCS: 36415; 74177; 80053; 83690; 85025; 96361; 96374; 96375; 99285; J1885; J2405; Q9967; Q9963

== ENCOUNTER 2018-11-12 18:19 | Inpatient (IN) | payer OTHER | END 2018-11-17 13:30 | disposition home or self-care (01) | LOC: EDH 18:19 → EDHIP 23:00 → 4BH 11-13 08:06 ==

== ENCOUNTER 2018-11-29 12:22 | Inpatient (IN) | payer OTHER ==
[~2018-11-29] VITALS: Ht 185.4 cm; Wt 92.2 kg
[~2018-11-29 12:22] MED LIST changes: +OMEP40CA13 PO; -OMEP40CA37 PO
[2018-11-29 13:05] LABS: BASOPHILS % (AUTO) 0.1 % (0.0-5.0); EOSINOPHILS % (AUTO) 0.1 % (0.0-8.0); HEMATOCRIT 39.3 % (42-54); LYMPHOCYTES % (AUTO) 16.5 % (21.0-51.0); MEAN CORPUSCULAR HEMOGLOBIN 28.2 pg (27.0-33.0); MEAN CORPUSCULAR HGB CONC 33.6 g/dL (32.0-36.0); MEAN CORPUSCULAR VOLUME 83.7 fL (79-99); MONOCYTES % (AUTO) 12.6 % (3.0-13.0); NEUTROPHILS % (AUTO) 70.7 % (40.0-77.0); NUCLEATED RED BLOOD CELLS 0.2 % (0.0-0.19); PLATELET COUNT (AUTO) 474 K/uL (130-400); RED BLOOD CELL COUNT(AUTO) 4.69 MIL/uL (4.50-6.20); RED CELL DISTRIBUTION WIDTH 19.5 % (11.0-15.5); WHITE BLOOD COUNT (AUTO) 6.1 K/uL (4.8-10.8)
[2018-11-29] MEDS ORDERED: ONDANSETRON HCL 4 MG/2 ML VIAL ONE (13:08)
[2018-11-29 13:13] LABS: CARBON DIOXIDE 30 mmol/L (21-32); CHLORIDE 98 mmol/L (101-111); GLOMERULAR FILTR. RATE CALC 86 mL/min (>60); GLUCOSE,RANDOM 98 mg/dL (70-105); POTASSIUM 4.3 mmol/L (3.5-5.1); SODIUM SERUM 133 mmol/L (136-145); UREA NITROGEN, BLOOD 31 mg/dL (7-18)
[2018-11-29 13:19] LABS: ALANINE AMINOTRANSFERASE 14 U/L (12-78); ALBUMIN 2.4 g/dL (3.5-5.0); ASPARTATE AMINOTRANSFERASE 18 U/L (10-37); BILIRUBIN,TOTAL 0.7 mg/dL (0.2-1.0); LIPASE < 50 U/L (114-286); TOTAL PROTEIN, SERUM 7.1 g/dL (6.0-8.3)
[2018-11-29] MEDS ORDERED: ZOSYN 3.375GM+NS 50ML 50 ML IV ONE (14:32)
[2018-11-29] MEDS ORDERED: HYDROMORPHONE 1 MG/1 ML AMP ONE (17:01)
[2018-11-29] MEDS ORDERED: SODIUM CHLORIDE 0.9% 1000ML 1,000 ML IV ONE (17:09)
[2018-11-29] MEDS ORDERED: LACTULOSE 20 GM/30 ML UDCUP PO PRN (18:15)
[2018-11-29] MEDS ORDERED: HYDROMORPHONE HCL 2 MG/ML VIAL IVP PRN (18:15)
[2018-11-29] MEDS ORDERED: ACETAMINOPHEN 650 MG SUPPOSITORY RC PRN (18:15)
[2018-11-29] MEDS ORDERED: HYDRALAZINE HCL 20 MG/ML VIAL IV PRN (18:15)
[2018-11-29] MEDS ORDERED: METOPROLOL TARTRATE 1 MG/ML 5ML VIAL IV PRN (18:15)
[2018-11-29 18:25] VITALS: BP 109/69
[2018-11-29 19:00] VITALS: BP 109/64
[2018-11-29] MEDS: FAMOTIDINE/PF 20 MG/2 ML VIAL IV SCH (21:53)
[2018-11-29] MEDS: HYDROMORPHONE HCL 0.5 MG/0.5 ML ML IVP PRN (21:54)
[2018-11-29] MEDS: IPRATROPIUM/ALBUTEROL SULFATE 3 ML SOLUTION IH SCH (22:00)
[2018-11-30] VITALS: BP 106/68
[2018-11-30] MEDS: IPRATROPIUM/ALBUTEROL SULFATE 3 ML SOLUTION IH SCH ×4 (01:36→13:50)
[2018-11-30 04:00] VITALS: BP 107/68
[2018-11-30] MEDS: HYDROMORPHONE HCL 0.5 MG/0.5 ML ML IVP PRN ×3 (04:20→22:08)
[2018-11-30 05:00] LABS: BASOPHILS % (AUTO) 0.2 % (0.0-5.0); EOSINOPHILS % (AUTO) 0.6 % (0.0-8.0); HEMATOCRIT 34.9 % (42-54); LYMPHOCYTES % (AUTO) 17.8 % (21.0-51.0); MEAN CORPUSCULAR HEMOGLOBIN 28.1 pg (27.0-33.0); MEAN CORPUSCULAR HGB CONC 33.5 g/dL (32.0-36.0); MEAN CORPUSCULAR VOLUME 83.7 fL (79-99); MONOCYTES % (AUTO) 13.5 % (3.0-13.0); NEUTROPHILS % (AUTO) 67.9 % (40.0-77.0); PLATELET COUNT (AUTO) 473 K/uL (130-400); RED BLOOD CELL COUNT(AUTO) 4.16 MIL/uL (4.50-6.20); RED CELL DISTRIBUTION WIDTH 19.7 % (11.0-15.5); WHITE BLOOD COUNT (AUTO) 6.4 K/uL (4.8-10.8)
[2018-11-30 05:13] LABS: CREATININE 0.8 mg/dL (0.5-1.5); MAGNESIUM 1.8 mg/dL (1.80-2.40); POTASSIUM 4.3 mmol/L (3.5-5.1)
[2018-11-30] MEDS: SODIUM CHLORIDE 0.9% 1000ML 1,000 ML IV SCH ×3 (06:42→18:47)
[2018-11-30 07:00] VITALS: BP 114/73
[2018-11-30] MEDS ORDERED: DIATR MEGLU/DIATRIZOATE SODIUM 30 ML BOTTLE ONE (08:21)
--- NOTE | 2018-11-30 08:35 | NUR ---
PATIENT UPDATE 43 Y/O MALE WITH SBO, WITH A SALEM SUMP TUBE TO THE RT NARE CONNECTED TO LOW INT SUCTION FOR GASTRIC DECOMPRESSION, LIGHT BROWNISH DRAINAGE NOTED. MEDICATED TWICE FOR ABDOMINAL PAIN WITH DILAUDID 0.2 MG SLOW IV PUSH WHICH AFFORDED RELIEF EACH TIME. CONSULT WITH DR. BARTON, I CALLED THE MD LAST NIGHT WHO EVENTUALLY ORDERED FOR PT TO GO FOR CT SCAN OF THE ABD/PELVIS WITH BOTH PO AND IV CONTRAST. CONTINUES WITH THE HYDRATION WITH NS AT 125 CC/HR. VITAL SIGNS STABLE, NO COMPLAINTS OF NAUSEA, NO VOMITING EPISODES. VITAL SIGNS STABLE.
[2018-11-30] MEDS: FAMOTIDINE/PF 20 MG/2 ML VIAL IV SCH ×2 (09:39→21:58)
[2018-11-30 11:00] VITALS: BP 115/59
[2018-11-30] MEDS ORDERED: IOHEXOL-350 75 ML VIAL IV ONE (12:07)
[2018-11-30 16:00] VITALS: BP 113/72
--- NOTE | 2018-11-30 18:32 | NUR ---
CHART REVIEWED. 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 LIVING SITUATION MAY STILL BE IN FLUX. PT IS INDEPENDENT AND EMPLOYED WITH NO DME AT THIS TIME DETAILED CM ASSESSMENT DEFERRED, WILL FOLLOW UP IF NEW TRIGGERS. . Addendum: 11/30/18 at 1836 by DAVID SCHMIDT RN CM Amended: Links added.
[2018-11-30 19:55] LABS: APPEARANCE,URINE Clear (CLEAR); BILIRUBIN,URINE Negative (NEGATIVE); COLOR,URINE Yellow (YELLOW); GLUCOSE, URINE (UA) Negative (NEGATIVE); KETONES,URINE >=80 mg/dL (NEGATIVE); LEUKOCYTE ESTERASE ,URINE Negative (NEGATIVE); NITRATE,URINE Negative (NEGATIVE); OCCULT BLOOD,URINE Negative (NEGATIVE); PH,URINE 5.5 (5.0-8.0); PROTEIN,URINE Trace mg/dL (NEGATIVE)
[2018-11-30 20:00] VITALS: BP 131/81
[2018-11-30 20:04] LABS: BACTERIA,URINE Few /HPF (None Seen); MUCUS,URINE Many LPF (None Seen); SQUAMOUS EPITHELIAL CELL,UR 0-2 /HPF (0-2)
--- NOTE | 2018-11-30 20:12 | NUR ---
ONCOLOGY CONSULT PAGED DR. MCMAHAN FOR ONCOLOGY CONSULT. SPOKE WITH ANSWERING SERVICE.
[2018-11-30] MEDS: ONDANSETRON HCL 4 MG/2 ML VIAL IVP PRN (22:07)
[2018-12-01] VITALS: BP 117/74
[2018-12-01 04:00] VITALS: BP 111/70
[2018-12-01] MEDS: IPRATROPIUM/ALBUTEROL SULFATE 3 ML SOLUTION IH SCH (06:00)
[2018-12-01 08:00] VITALS: BP 106/67
--- NOTE | 2018-12-01 08:16 | NUR ---
PATIENT UPDATE called back last night ,made aware of the consult, will come to see the pt today. Pt continues with the gastric lavage, salem sump tube advanced in to facilitate gastric decompression. NGT output draining to thick brown aspirate, irrigated with normal saline. Medicated only once for pain with dilaudid 0.2 mg and zofran for nausea, comfortable overnight.
[2018-12-01] MEDS: FAMOTIDINE/PF 20 MG/2 ML VIAL IV SCH ×2 (09:24→19:20)
[2018-12-01] MEDS: SODIUM CHLORIDE 0.9% 1000ML 1,000 ML IV SCH ×2 (09:27→19:20)
[2018-12-01 12:00] VITALS: BP 123/74
[2018-12-01] MEDS: HYDROMORPHONE HCL 0.5 MG/0.5 ML ML IVP PRN ×2 (13:05→22:00)
[2018-12-01 16:00] VITALS: BP 108/67
[2018-12-01 19:00] VITALS: BP 118/81
[2018-12-01] MEDS: ONDANSETRON HCL 4 MG/2 ML VIAL IVP PRN (19:20)
[2018-12-02] VITALS (25 sets, daily range): BP systolic 96–122; BP diastolic 54–83
[2018-12-02 06:10] LABS: HEMATOCRIT 35.4 % (42-54); MEAN CORPUSCULAR HEMOGLOBIN 28.1 pg (27.0-33.0); MEAN CORPUSCULAR HGB CONC 33.3 g/dL (32.0-36.0); MEAN CORPUSCULAR VOLUME 84.2 fL (79-99); PLATELET COUNT (AUTO) 465 K/uL (130-400); RED CELL DISTRIBUTION WIDTH 19.5 % (11.0-15.5); WHITE BLOOD COUNT (AUTO) 6.1 K/uL (4.8-10.8)
[2018-12-02 06:12] LABS: CREATININE 0.9 mg/dL (0.5-1.5); POTASSIUM 4.5 mmol/L (3.5-5.1)
[2018-12-02 06:17] LABS: INR 1.16 (0.85-1.15); PARTIAL THROMBOPLASTIN TIME 31.5 SEC (26.3-35.5); PROTHROMBIN TIME 12.1 SEC (9.6-11.6)
[2018-12-02] MEDS: FAMOTIDINE/PF 20 MG/2 ML VIAL IV SCH ×2 (08:16→21:29)
[2018-12-02] MEDS: ENOXAPARIN SODIUM 40 MG/0.4 ML SYRINGE SQ SCH (09:00)
[2018-12-02] MEDS ORDERED: PROPOFOL 10 MG/ML 20ML VIAL IV ONE ×2 (10:05)
[2018-12-02] MEDS: HYDROMORPHONE HCL 0.5 MG/0.5 ML ML IVP PRN ×2 (12:24→18:29)
[2018-12-02] MEDS: ONDANSETRON HCL 4 MG/2 ML VIAL IVP PRN (18:21)
[2018-12-02] MEDS: SODIUM CHLORIDE 0.9% 1000ML 1,000 ML IV SCH ×2 (21:03→21:29)
[2018-12-03] VITALS (31 sets, daily range): BP systolic 71–174; BP diastolic 36–78
[2018-12-03] MEDS: HYDROMORPHONE HCL 0.5 MG/0.5 ML ML IVP PRN ×2 (00:20→18:27)
[2018-12-03] MEDS: ENOXAPARIN SODIUM 40 MG/0.4 ML SYRINGE SQ SCH (09:00)
[2018-12-03] MEDS: FAMOTIDINE/PF 20 MG/2 ML VIAL IV SCH ×2 (10:08→22:31)
--- NOTE | 2018-12-03 10:24 | NUR ---
PT UPDATE Pt taken off the floor for procedure at this time. Nursing will continue to monitor.
[2018-12-03] MEDS: SODIUM CHLORIDE 0.9% 1000ML 1,000 ML IV SCH ×2 (10:25→23:08)
[2018-12-03] MEDS ORDERED: LACTATED RINGERS 1000ML 1,000 ML IV ONE (10:42)
[2018-12-03] MEDS ORDERED: LIDOCAINE PF 2% 5ML ABBOJECT ONE ×2 (11:30→11:32)
[2018-12-03] MEDS ORDERED: SUCCINYLCHOLINE 200MG/10ML SYR ONE ×2 (11:30→11:32)
[2018-12-03] MEDS ORDERED: DEXAMETHASONE SOD PHOSPHATE 10MG/ML 1ML VIAL ONE (11:30)
[2018-12-03] MEDS ORDERED: GLYCOPYRROLATE 1 MG/5 ML SYRINGE ONE (11:31)
[2018-12-03] MEDS ORDERED: ROCURONIUM 10MG/1ML SYR 10 MG/ML ML ONE ×3 (11:31→16:00)
[2018-12-03] MEDS ORDERED: MIDAZOLAM HCL 1 MG/ML 2ML VIAL ONE (11:31)
[2018-12-03] MEDS ORDERED: NEOSTIGMINE 5MG/5ML SYR IV ONE (11:31)
[2018-12-03] MEDS ORDERED: PROPOFOL 10 MG/ML 20ML VIAL IV ONE (11:31)
[2018-12-03] MEDS ORDERED: FENTANYL CITRATE PF 50 MCG/1 ML 2ML VIAL ONE ×2 (11:32→12:02)
[2018-12-03] MEDS ORDERED: CEFOXITIN SODIUM 2 GM VIAL ONE (11:38)
[2018-12-03] MEDS ORDERED: ALBUMIN (HUMAN) 5% 500 ML IV ONE (15:13)
--- NOTE | 2018-12-03 15:14 | NUR ---
RD NOTIFICATION PRIMARY DIAGNOSIS: SMALL BOWEL OBSTRUCTION. HX: HEMICOLECTOMY 09/13/18 SECONDARY TO COLON CANCER. BMI IS 24.4; CLASSIFIED NORMAL. CURRENT DIET: NPO. MEDS: APRESOLINE, LACTULOSE, LOPRESSOR, PEPCID, ZOFRAN, DILAUDID, LOVENOX, DUONEB. LABS: Na 134, ALB 2.4, Ca 7.8, LIPASE <50. PT WAS OUT HAVING PROCEDURE DURING TIME OF VISIT. CHART UNAVAILABLE AND NOT ABLE TO LEAVE TPN RECOMMENDATIONS IN CHART. NURSE MENTIONED TPN RECOMMENDATIONS MIGHT BE D/C ORDERED BY MD. RD RECOMMENDS CONTINUE NPO AND ADVANCE DIET TOLERATED WHEN MEDICALLY FEASIBLE TO CLEAR LIQUIDS. RD CONSULTED FOR TPN RECOMMENDATIONS. RD RECOMMENDS TPN IF MEDICALLY FEASIBLE VIA PICC LINE. RECOMMEND 5/15 CLINIMIX AT 65MLS/HR. RECOMMEND 20% INTRA-LIPIDS ONCE DAILY, RUN LIPID PANEL EVERY --MON. ADD 10ML ADULT MULTIVITAMINS. CLINIMIX FORMULA PROVIDES: 1108KCAL/D, 78GM PROTEIN/D, 1560MLS/D. GIR EQUALS 1.9 MG/KG/MIN. RD WILL CONTINUE TO MONITOR AND FOLLOW UP NEEDED. THANK YOU. Addendum: 12/03/18 at 1515 [address] RD Amended: Links added.
[2018-12-03] MEDS ORDERED: EPHEDRINE SULFATE 50 MG/ML AMPULE ONE (15:18)
[2018-12-03 16:23] LABS: ABG HCO3 18.2 mmol/L (21.0-28.0); ABG PCO2 45 mmHg (35-48)
--- NOTE | 2018-12-03 16:46 | NUR ---
PT UPDATE Pt transferred to ICU s/p exploratory lap with possible ostomy, report given to KEVIN Hartman, Primary nurse notified and updated. Care endorsed.
--- NOTE | 2018-12-03 17:22 | NUR ---
PATIENT ARRIVED FROM OR WITH 7.0 ETT AT 22CM LIP. CONNECTED TO VENT AT ORDERED SETTINGS. MONITORS CONNECTED, ALARMS ON AND AUDIBLE. BED LOCKED AND LOW.
--- NOTE | 2018-12-03 18:13 | NUR ---
DR ISIDRO PAGED TO UPDATE ON PATIENT POST OP.
[2018-12-03 20:40] LABS: ABG BASE EXCESS -7.8 mmol/L (-2.0-3.0); ABG HCO3 15.3 mmol/L (21.0-28.0); ABG OXYGEN SATURATION 98.1 % (95.0-99.0); ABG PCO2 25 mmHg (35-48)
[2018-12-03] MEDS ORDERED: SODIUM BICARB 50MEQ 50ML VIAL ONE (20:42)
--- NOTE | 2018-12-03 20:50 | NUR ---
MD CALL BP LOW MR RD NP BEEPED FOR ORDERS.
[2018-12-03 20:54] LABS: CREATININE 0.8 mg/dL (0.5-1.5); POTASSIUM 3.6 mmol/L (3.5-5.1)
[2018-12-03 20:59] LABS: ALBUMIN 1.6 g/dL (3.5-5.0); BILIRUBIN,TOTAL 0.8 mg/dL (0.2-1.0); TOTAL PROTEIN, SERUM 4.1 g/dL (6.0-8.3)
[2018-12-03] MEDS ORDERED: CLINIMIX E 5%-15% 2,000 ML IV ONE (21:00)
--- NOTE | 2018-12-03 21:15 | NUR ---
TRACKWALKER CALL NO CALL FROM MR RD NP AND CALLED AGAIN.
--- NOTE | 2018-12-03 21:55 | NUR ---
CREDIT PROCESSOR CALL MR. SULTANA,CREDIT PROCESSOR CALLS INFORMED OF LOW BP AND THAT EPIDURAL DRIP TURNED OFF FOR NOW. ORDERS RECEIVED AND CARRIED OUT.
[2018-12-03] MEDS ORDERED: SODIUM CHLORIDE 0.9% 500ML 500 ML IV SCH (22:00)
[2018-12-03] MEDS ORDERED: SODIUM CHLORIDE 0.9% 1000ML 1,000 ML IV SCH (22:00)
--- NOTE | 2018-12-03 22:00 | NUR ---
STATUS AWAKE FOLLOWS COMMANDS. WANTS ETT OUT. EXPLAINED ABOUT WEANING PROCESS. RT HERE AND TALKS TO HIM AND WEANING PROCESS STARTED.
[2018-12-03] MEDS ORDERED: SODIUM BICARB 50MEQ 50ML VIAL IV ONE (22:15)
[2018-12-03] MEDS: ZOSYN 3.375GM+NS 50ML 50 ML IV SCH (22:31)
[2018-12-03] MEDS: NOREPINEPHRINE BITARTRATE 8 MG in SODIUM CHLORIDE 0.9% 250 ML IV SCH (22:46)
--- NOTE | 2018-12-03 23:30 | NUR ---
HOME CARE ASSISTANT CALL MR SULTANA,HOME CARE ASSISTANT CALL TO GIVE PRE EXTUBATION ABGS. WEANING PARAMETERS AND LATEST VS. ORDER RECEIVED TO EXTUBATE. ORDERS ALSO GIVEN FOR PAIN MEDICATION SINCE PT STATES EPIDURAL NOT HELPING.
[2018-12-03 23:32] LABS: ABG BASE EXCESS -3.4 mmol/L (-2.0-3.0); ABG HCO3 17.9 mmol/L (21.0-28.0); ABG OXYGEN SATURATION 99.3 % (95.0-99.0); ABG PCO2 24 mmHg (35-48)
--- NOTE | 2018-12-03 23:45 | NUR ---
EXTUBATION RT HERE AND EXPLAINS TO HIM EXTUBATION PROCESS. RT EXTUBATED HIM AND PLACED HIM ON 40% HHFM. INSTRUCTED NOT TO TALK FOR 2 HOURS. CALL LIGHT PLACED BY HIM.
[2018-12-04] VITALS (75 sets, daily range): BP systolic 77–145; BP diastolic 36–79
[2018-12-04] MEDS: HYDROMORPHONE HCL 0.5 MG/0.5 ML ML IVP PRN (00:46)
[2018-12-04] MEDS ORDERED: HYDROMORPHONE HCL 2 MG/ML VIAL IVP PRN (01:00)
[2018-12-04 03:30] LABS: HEMATOCRIT 34.2 % (42-54); MEAN CORPUSCULAR HEMOGLOBIN 28.1 pg (27.0-33.0); MEAN CORPUSCULAR HGB CONC 33.3 g/dL (32.0-36.0); MEAN CORPUSCULAR VOLUME 84.3 fL (79-99); PLATELET COUNT (AUTO) 297 K/uL (130-400); RED BLOOD CELL COUNT(AUTO) 4.05 MIL/uL (4.50-6.20); RED CELL DISTRIBUTION WIDTH 19.8 % (11.0-15.5); WHITE BLOOD COUNT (AUTO) 13.5 K/uL (4.8-10.8)
[2018-12-04 03:40] LABS: MAGNESIUM 1.2 mg/dL (1.80-2.40); PHOSPHORUS 4.1 mg/dL (2.5-4.9); POTASSIUM 4.3 mmol/L (3.5-5.1)
[2018-12-04] MEDS: HYDROMORPHONE 1 MG/1 ML AMP IVP PRN ×2 (03:45→06:22)
[2018-12-04 03:52] LABS: ABG BASE EXCESS -3.5 mmol/L (-2.0-3.0); ABG HCO3 19.5 mmol/L (21.0-28.0); ABG OXYGEN SATURATION 98.9 % (95.0-99.0); ABG PCO2 30 mmHg (35-48)
[2018-12-04 03:52] LABS: BAND NEUTROPHILS % (MANUAL) 56 % (0-2); LYMPHOCYTES % (MANUAL) 9 % (22-44); MAN.DIFF COMMENT-IMPRESSION MANUAL DIFFERENTIAL; MONOCYTES % (MANUAL) 6 % (2-9); PLATELET MORPHOLOGY COMMENT ADEQUATE; SEGMENTED NEUTROPHILS % 29 % (40-70)
[2018-12-04] MEDS ORDERED: HYDROMORPHONE 1 MG/1 ML AMP IVP ONE (04:15)
[2018-12-04] MEDS: ZOSYN 3.375GM+NS 50ML 50 ML IV SCH ×3 (05:42→21:34)
--- NOTE | 2018-12-04 07:15 | NUR ---
RESTING IN BED WITH EYES CLOSED, RESP.'S EVEN AND UNLABORED. AEROSOL MASK IN PLACE, FI02 AT 40%. NGT IN PLACE TO RIGHT NARE TO LIWS. LEVOPHED INFUSING AT 6MCG/MIN VIA IV PUMP. A-LINE WITH ACCEPTABLE WAVEFORM AND SECURE; LEFT HAND WITH GOOD CMS; DENIES ANY NUMBNESS OR TINGLING TO FINGERS. ABD DRSG IN PLACE, D/I, AND SECURE. ALONSO SECURE IN PLACE AND COMPRESSED. OSTOMY IN PLACE WITH SMART COLOR LOOSE STOOL NOTED. F/C IN PLACE, SECURE TO THIGH. BLE WITH SCD'S. COMPLETE ASSESSMENT DONE. CALL LIGHT WITHIN REACH, INSTRUCTED ON USE AND VERBALIZED UNDERSTANDING. CALL LIGHT PLACED IN HAND. BED LOW, SIDE RAILS UP. ROOM DOOR OPEN, VISIBLE FROM NURSE'S STATION. Addendum: 12/04/18 at 0938 by BINDU ERICKSON RN RN LEVOPHED DECREASED TO 5MCG/MIN.
--- NOTE | 2018-12-04 08:00 | NUR ---
RESTING IN BED. OFFERED PT. TO REPOSITION IN BED. PT. DECLINED. CALL LIGHT WITHIN REACH.
[2018-12-04] MEDS: FAMOTIDINE/PF 20 MG/2 ML VIAL IV SCH ×2 (08:39→21:34)
[2018-12-04] MEDS: MAGNESIUM 2GM PREMIX 50ML 50 ML IV PRN (08:41)
--- NOTE | 2018-12-04 09:42 | NUR ---
Marcia BAILEY PA-C, IN ROOM SPEAKING WITH PT. AND PT.'S FATHER AT BEDSIDE. WASH WORKER INFORMING PT. AND FATHER RE:PLAN OF CARE AND CONTINUED NPO STATUS WITH NGT IN PLACE. WASH WORKER MADE AWARE RE:NGT AND ALONSO OUTPUT WELL CURRENT MEDICATION REGIMEN INCLUDING LEVOPHED GTT AND EPIDURAL CURRENT OFF; VERBALIZED UNDERSTANDING. ORDERS RECEIVED.
--- NOTE | 2018-12-04 10:09 | NUR ---
PT. STATES ABD PAIN CONTINUES AT 7/10. EPIDURAL RESUMED ORDERED, PCEA CONTROL GIVEN TO PT. AND PLACED IN HAND. CALL LIGHT WITHIN REACH. RATIONALE FOR EPIDURAL USE AND PREVIOUS STOPPAGE EXPLAINED TO PT. AND PT.'S FATHER AT BEDSIDE, VERBALIZED MUTUAL UNDERSTANDING. ROOM DOOR OPEN, VISIBLE FROM NURSE'S STATION.
[2018-12-04] MEDS: SODIUM CHLORIDE 0.9% 1000ML 1,000 ML IV SCH ×3 (11:19→23:41)
--- NOTE | 2018-12-04 11:25 | NUR ---
RECEIVED CALL FROM SLOANE ESPINOZA CRNA, UPDATED ON MEDICATION REGIMEN, INCLUDING EPIDURAL PREVIOUSLY STOPPED AND LEVOPHED STARTED FOR HYPOTENSION; QUESTIONS ANSWERED AND VERBALIZED UNDERSTANDING.
--- NOTE | 2018-12-04 11:30 | NUR ---
RESTING IN BED. EYES CLOSED, RESP.'S EVEN AND UNLABORED. OPENS EYES TO VERBAL COMMAND. OFFERED ASSISTANCE TO REPOSITION IN BED. PT. DECLINED; RATIONALE FOR REPOSITIONING EXPLAINED TO PT., FATHER AT BEDSIDE, VERBALIZED MUTUAL UNDERSTANDING. PT.'S FATHER STATES PT. HAS BEEN REPOSITIONING SELF THROUGHOUT THE MORNING.
--- NOTE | 2018-12-04 12:30 | NUR ---
DR. ISIDRO IN ROOM SPEAKING WITH PT., PT.'S FATHER AT BEDSIDE. UPDATED DR. ISIDRO ON CURRENT MEDICATION REGIMEN AND VS TREND; VERBALIZED UNDERSTANDING.
--- NOTE | 2018-12-04 12:40 | NUR ---
LARGE AMOUNT LOOSE SMART COLORED STOOL NOTED FROM OSTOMY; EMPTIED AND CLEANED.
--- NOTE | 2018-12-04 12:42 | NUR ---
DR. MCMAHAN IN ROOM SPEAKING WITH PT. UPDATED DR. MCMAHAN ON CURRENT MEDICATION REGIMEN AND VS TREND; VERBALIZED UNDERSTANDING. DR. MCMAHAN SPEAKING WITH PT. RE:PLAN OF CARE.
[2018-12-04] MEDS: ROPIVACAINE 0.2% 100ML VIAL 100 ML EP SCH ×2 (13:17→21:25)
[2018-12-04] MEDS: NOREPINEPHRINE BITARTRATE 8 MG in SODIUM CHLORIDE 0.9% 250 ML IV SCH (13:20)
--- NOTE | 2018-12-04 16:07 | NUR ---
Marcia BAILEY PA-C, IN ROOM SPEAKING WITH PT. UPDATED ON LATEST NGT AND ALONSO OUTPUT WELL MEDICATION REGIMEN, VERBALIZED UNDERSTANDING. Marcia BAILEY INFORMED PT. OF PLAN OF CARE.
[2018-12-04] MEDS ORDERED: M.V.I. IV [ADULT] 10 ML in CLINIMIX E 5%-15% 2,000 ML IV ONE (17:00)
--- NOTE | 2018-12-04 18:06 | NUR ---
LEVOPHED INCREASED TO 8MCG/MIN. RESTING IN BED W/O C/O. PT.'S SPOUSE AND FEMALE VISITOR AT BEDSIDE. CALL LIGHT WITHIN REACH.
--- NOTE | 2018-12-04 19:05 | NUR ---
REPORT TO INCOMING SHIFT.
--- NOTE | 2018-12-04 20:00 | NUR ---
ASSESSMENT AWAKE. RESTING IN BED. USES EPIDURAL PAIN PUMP FOR PAIN CONTROL AND STATES IT IS CONTROLLED. REMINDED TO USE IS Q1H FOR 10 BREATHS WHILE AWAKE. ASSESSMENT COMPLETED SEE FLOW SHEET. ENCOURAGED TO CALL FOR WANTS OR NEEDS. Addendum: 12/04/18 at 2038 by JOVITA GARCIA RN RN Amended: Links added.
[2018-12-05] VITALS (30 sets, daily range): BP systolic 95–149; BP diastolic 45–99
[2018-12-05 04:56] LABS: HEMATOCRIT 26.2 % (42-54); MEAN CORPUSCULAR HEMOGLOBIN 28.3 pg (27.0-33.0); MEAN CORPUSCULAR HGB CONC 33.4 g/dL (32.0-36.0); MEAN CORPUSCULAR VOLUME 84.8 fL (79-99); PLATELET COUNT (AUTO) 134 K/uL (130-400); RED BLOOD CELL COUNT(AUTO) 3.09 MIL/uL (4.50-6.20); RED CELL DISTRIBUTION WIDTH 19.9 % (11.0-15.5); WHITE BLOOD COUNT (AUTO) 16.7 K/uL (4.8-10.8)
[2018-12-05] MEDS: NOREPINEPHRINE BITARTRATE 8 MG in SODIUM CHLORIDE 0.9% 250 ML IV SCH (04:56)
[2018-12-05] MEDS: SODIUM CHLORIDE 0.9% 1000ML 1,000 ML IV SCH ×3 (04:59→22:14)
[2018-12-05 05:28] LABS: ALANINE AMINOTRANSFERASE 13 U/L (12-78); ALBUMIN 1.1 g/dL (3.5-5.0); ASPARTATE AMINOTRANSFERASE 26 U/L (10-37); BILIRUBIN,TOTAL 0.2 mg/dL (0.2-1.0); CARBON DIOXIDE 23 mmol/L (21-32); CHLORIDE 107 mmol/L (101-111); CHOLESTEROL < 50 mg/dL (<200); CREATININE 0.7 mg/dL (0.5-1.5); GLOMERULAR FILTR. RATE CALC 130 mL/min (>60); GLUCOSE,RANDOM 136 mg/dL (70-105); HDL CHOLESTEROL 12 mg/dL (29-71); LDL DIRECT 6 mg/dL (0-99); PHOSPHORUS 2.2 mg/dL (2.5-4.9); POTASSIUM 3.5 mmol/L (3.5-5.1); SODIUM SERUM 139 mmol/L (136-145); TOTAL PROTEIN, SERUM 4.2 g/dL (6.0-8.3); TRIGLYCERIDES 39 mg/dL (30-200); UREA NITROGEN, BLOOD 11 mg/dL (7-18)
[2018-12-05] MEDS: ZOSYN 3.375GM+NS 50ML 50 ML IV SCH ×3 (05:55→21:14)
[2018-12-05] MEDS: POTASSIUM CHLORIDE 20MEQ/100ML 100 ML IV PRN (06:12)
[2018-12-05] MEDS: ROPIVACAINE 0.2% 100ML VIAL 100 ML EP SCH (06:28)
[2018-12-05] MEDS: MAGNESIUM 2GM PREMIX 50ML 50 ML IV PRN (08:29)
[2018-12-05] MEDS: FAMOTIDINE/PF 20 MG/2 ML VIAL IV SCH ×2 (08:29→21:20)
[2018-12-05] MEDS: HYDROMORPHONE 1 MG/1 ML AMP IVP PRN ×4 (08:30→21:14)
[2018-12-05] MEDS: FAT EMULSIONS 20% 250ML 250 ML IV SCH (09:55)
[2018-12-05] MEDS ORDERED: M.V.I. IV [ADULT] 10 ML in CLINIMIX E 5%-15% 2,000 ML IV SCH (13:00)
--- NOTE | 2018-12-05 15:35 | NUR ---
RD FOLLOW UP When medically feasible, Rec to increase TPN rate to 83mls/hr to provide 1420kcal/100gm Protein. GIR=2.48 Rec to continue 20% Intralipid MWF. Updated recommendations left in Pt chart. LBM 12/04/18. Pt monitored labs: H/H 8.7/26.2, Glu 136, Ca 6.7, P 2.2, Mg 1.70, Alb 1.1, HDL 12. RD to continue to monitor. Please notify RD as nutritional concerns arise. Thank you. Addendum: 12/05/18 at [address] RD Amended: Links added.
--- NOTE | 2018-12-05 19:50 | NUR ---
ASSESSMENT PT RESTING IN BED, AWAKE AND ALERT. IV FLUIDS INFUSING WITHOUT DIFFICULTY. 16FR GILBERT CATH IN SITU. CALLBELL WITHIN REACH. WHITE BOARD UPDATED. BEDSIDE MONITOR REVIEWED AND PARAMETERS ESTABLISHED. ASSESSMENT COMPLETED, SEE FLOW SHEET.
[2018-12-06] VITALS (16 sets, daily range): BP systolic 109–131; BP diastolic 71–87
[2018-12-06] MEDS: HYDROMORPHONE 1 MG/1 ML AMP IVP PRN ×5 (01:36→20:48)
--- NOTE | 2018-12-06 03:28 | NUR ---
ASSESSMENT PT RESTING IN BED, AWAKE AND ALERT. IV FLUIDS INFUSING WITHOUT DIFFICULTY. 16FR GILBERT CATH IN SITU. CALLBELL WITHIN REACH. ASSESSMENT COMPLETED, SEE FLOW SHEET.
[2018-12-06 04:44] LABS: HEMATOCRIT 25.3 % (42-54); MEAN CORPUSCULAR HGB CONC 33.4 g/dL (32.0-36.0); MEAN CORPUSCULAR VOLUME 83.9 fL (79-99); NUCLEATED RED BLOOD CELLS 0.1 % (0.0-0.19); PLATELET COUNT (AUTO) 114 K/uL (130-400); RED BLOOD CELL COUNT(AUTO) 3.02 MIL/uL (4.50-6.20); RED CELL DISTRIBUTION WIDTH 20.2 % (11.0-15.5); WHITE BLOOD COUNT (AUTO) 12.7 K/uL (4.8-10.8)
[2018-12-06 05:07] LABS: CREATININE 0.5 mg/dL (0.5-1.5)
[2018-12-06] MEDS: ZOSYN 3.375GM+NS 50ML 50 ML IV SCH ×3 (05:51→23:10)
[2018-12-06] MEDS: POTASSIUM CHLORIDE 20MEQ/100ML 100 ML IV PRN ×3 (05:59→10:50)
[2018-12-06] MEDS: SODIUM CHLORIDE 0.9% 1000ML 1,000 ML IV SCH ×3 (06:00→23:11)
--- NOTE | 2018-12-06 08:00 | NUR ---
AM NOTE Awake, alert, and oriented x3. Denies any pain at this time. Cordis to right IJ patent, dressing clean and dry. 60cc emptied from Colostomy. Redmond catheter to gravity. Instructed on use of julia light for any assistance, verbalized understanding.
[2018-12-06] MEDS: FAMOTIDINE/PF 20 MG/2 ML VIAL IV SCH ×2 (08:02→20:47)
--- NOTE | 2018-12-06 14:00 | NUR ---
BENCHMARK Dr. Davalos in to see pt, update given. New orders received dn will carry out.
--- NOTE | 2018-12-06 14:45 | NUR ---
MD VISIT Dr. Sandoval in to see pt, update given. New orders received and will carry out.
--- NOTE | 2018-12-06 15:30 | NUR ---
DC Redmond catheter discontinued as ordered, due to void at 2130. Urinal within reach.
--- NOTE | 2018-12-06 16:45 | NUR ---
TRANSFER Pt transferred to room 408, in no distress. All belongings given to pt. Report given to Cyndy Robles RN.
[2018-12-06] MEDS ORDERED: M.V.I. IV [ADULT] 10 ML in CLINIMIX E 5%-15% 2,000 ML IV SCH (17:30)
[2018-12-07] VITALS (7 sets, daily range): BP systolic 107–120; BP diastolic 56–82
[2018-12-07] MEDS: HYDROMORPHONE 1 MG/1 ML AMP IVP PRN ×4 (02:14→20:35)
[2018-12-07 03:45] LABS: HEMATOCRIT 24.5 % (42-54); MEAN CORPUSCULAR HEMOGLOBIN 28.8 pg (27.0-33.0); MEAN CORPUSCULAR HGB CONC 34.1 g/dL (32.0-36.0); MEAN CORPUSCULAR VOLUME 84.3 fL (79-99); NUCLEATED RED BLOOD CELLS 0.1 % (0.0-0.19); PLATELET COUNT (AUTO) 88 K/uL (130-400); RED BLOOD CELL COUNT(AUTO) 2.91 MIL/uL (4.50-6.20); RED CELL DISTRIBUTION WIDTH 19.8 % (11.0-15.5); WHITE BLOOD COUNT (AUTO) 8.2 K/uL (4.8-10.8)
[2018-12-07 04:05] LABS: ALANINE AMINOTRANSFERASE 22 U/L (12-78); ALBUMIN 1.1 g/dL (3.5-5.0); ASPARTATE AMINOTRANSFERASE 28 U/L (10-37); BILIRUBIN,TOTAL 0.3 mg/dL (0.2-1.0); CARBON DIOXIDE 29 mmol/L (21-32); CHLORIDE 102 mmol/L (101-111); CHOLESTEROL < 50 mg/dL (<200); CREATININE 0.5 mg/dL (0.5-1.5); GLOMERULAR FILTR. RATE CALC 192 mL/min (>60); GLUCOSE,RANDOM 101 mg/dL (70-105); HDL CHOLESTEROL 10 mg/dL (29-71); LDL DIRECT 24 mg/dL (0-99); PHOSPHORUS 2.2 mg/dL (2.5-4.9); POTASSIUM 3.2 mmol/L (3.5-5.1); SODIUM SERUM 134 mmol/L (136-145); TOTAL PROTEIN, SERUM 4.7 g/dL (6.0-8.3); TRIGLYCERIDES 93 mg/dL (30-200); UREA NITROGEN, BLOOD 9 mg/dL (7-18)
[2018-12-07] MEDS: ZOSYN 3.375GM+NS 50ML 50 ML IV SCH ×3 (05:02→21:24)
[2018-12-07] MEDS: MAGNESIUM 2GM PREMIX 50ML 50 ML IV PRN (05:02)
[2018-12-07] MEDS: LIDOCAINE HCL-MPF 1% 2ML VIAL IV PRN (05:50)
[2018-12-07] MEDS: POTASSIUM CHLORIDE 20MEQ/100ML 100 ML IV PRN ×2 (05:51→16:02)
[2018-12-07] MEDS: SODIUM CHLORIDE 0.9% 1000ML 1,000 ML IV SCH ×2 (09:20→20:26)
[2018-12-07] MEDS ORDERED: M.V.I. IV [ADULT] 10 ML in CLINIMIX E 5%-15% 2,000 ML IV SCH (10:00)
[2018-12-07] MEDS: FAMOTIDINE/PF 20 MG/2 ML VIAL IV SCH ×2 (10:21→20:23)
--- NOTE | 2018-12-07 10:30 | NUR ---
RIGHT IJ LINE DRESSING CHANGE RIGHT IF LINE DRESSING NOTED TO BE SOILED AND PARTIALLY LOOSENED FROM SKIN. STERILE TECHNIQUE USED TO PERFORM LINE DRESSING CHANGE.
[2018-12-07] MEDS: FAT EMULSIONS 20% 250ML 250 ML IV SCH (13:10)
--- NOTE | 2018-12-07 13:30 | NUR ---
ILEOSTOMY AND ABDOMINAL INCISION DRESSING CHANGE RLQ ILEOSTOMY SKIN BARRIER WAFER AND BAG COMPLETELY LOOSENED FROM PATIENTS SKIN, BROWN LEAKAGE FROM ILEOSTOMY SOILED ABDOMINAL GAUZE DRESSING. CALLED DR. BARTON TO REPORT ILEOSTOMY LEAKAGE APPEARS TO HAVE SOILED ABDOMINAL INCISION GAUZE PACKING. DR. BARTON DID GIVE OKAY TO CLEANSE AND CHANGE ABDOMINAL INCISION DRESSING AND ILEOSTOMY APPLIANCE CHANGE. PERISTOMAL SKIN NOTED TO BE INTACT AND SLIGHTLY REDDENED. CLEANSED SKIN AROUND STOMA SITE WITH STERILE WATER. STOMA NOTED TO BE RED IN COLOR AND MOIST. APPLIED NEW TWO-PIECE DRAINABLE APPLIANCE TO Q ILEOSTOMY. REMOVED SOILED ABDOMINAL DRESSING. UPPER HALF OF ABDOMINAL INCISION APPROXIMATED AND SECURED WITH JUAN. LOWER BOTTOM HALF OF ABDOMINAL INCISION NOT APPROXIMATED, NOTED TO BE PACKED WITH 4X4 GAUZE. GENTLY REMOVED SOILED 4X4 GAUZE PACKING. CLEANSED ABDOMINAL INCISION WITH STERILE SALINE. APPLIED CLEAN 4X4 GAUZE PACKING TO LOWER BOTTOM HALF OF ABDOMINAL INCISION. COVERED ENTIRE LENGTH OG Addendum: 12/07/18 at 2013 by TETE BEYER RN RN CONTINUATION OF ABOVE NOTE: COVERED ENTIRE LENGTH OF ABDOMINAL INCISION WITH 4X4 GAUZE. APPLIED ABD PADS AND SECURED ABDOMINAL DRESSING WITH MEDIPORE TAPE. PATIENT TOLERATED ABDOMINAL INCISION AND ILEOSTOMY APPLIANCE CHANGE WELL.
[2018-12-07] MEDS: IPRATROPIUM/ALBUTEROL SULFATE 3 ML SOLUTION IH PRN ×3 (14:46→23:24)
[2018-12-07] MEDS: ACETYLCYSTEINE 10% 100MG/ML 4ML VIAL IH SCH ×2 (18:48→23:23)
[2018-12-08] MEDS: HYDROMORPHONE 1 MG/1 ML AMP IVP PRN ×4 (00:22→20:21)
[2018-12-08 04:00] VITALS: BP 116/77
[2018-12-08] MEDS: FAMOTIDINE/PF 20 MG/2 ML VIAL IV SCH (05:05)
[2018-12-08] MEDS: ONDANSETRON HCL 4 MG/2 ML VIAL IVP PRN (05:05)
[2018-12-08] MEDS: ZOSYN 3.375GM+NS 50ML 50 ML IV SCH ×3 (05:05→22:37)
[2018-12-08 05:52] LABS: BASOPHILS % (AUTO) 0.1 % (0.0-5.0); EOSINOPHILS % (AUTO) 0.4 % (0.0-8.0); HEMATOCRIT 26.8 % (42-54); LYMPHOCYTES % (AUTO) 6.5 % (21.0-51.0); MEAN CORPUSCULAR HEMOGLOBIN 28.5 pg (27.0-33.0); MEAN CORPUSCULAR HGB CONC 33.5 g/dL (32.0-36.0); MONOCYTES % (AUTO) 8.5 % (3.0-13.0); NEUTROPHILS % (AUTO) 84.5 % (40.0-77.0); PLATELET COUNT (AUTO) 111 K/uL (130-400); RED BLOOD CELL COUNT(AUTO) 3.15 MIL/uL (4.50-6.20); RED CELL DISTRIBUTION WIDTH 20.1 % (11.0-15.5); WHITE BLOOD COUNT (AUTO) 12.8 K/uL (4.8-10.8)
[2018-12-08 06:21] LABS: CREATININE 0.6 mg/dL (0.5-1.5); MAGNESIUM 1.7 mg/dL (1.80-2.40); PHOSPHORUS 2.9 mg/dL (2.5-4.9)
[2018-12-08] MEDS: MAGNESIUM 2GM PREMIX 50ML 50 ML IV PRN (06:56)
[2018-12-08 08:00] VITALS: BP 100/79
[2018-12-08] MEDS: SODIUM CHLORIDE 0.9% 1000ML 1,000 ML IV SCH ×2 (08:49→22:38)
[2018-12-08] MEDS: POTASSIUM CHLORIDE 20MEQ/100ML 100 ML IV PRN (10:51)
[2018-12-08 11:00] VITALS: BP 110/69
[2018-12-08] MEDS: IPRATROPIUM/ALBUTEROL SULFATE 3 ML SOLUTION IH PRN ×2 (11:31→19:41)
[2018-12-08] MEDS: ACETYLCYSTEINE 10% 100MG/ML 4ML VIAL IH SCH ×3 (11:32→23:37)
--- NOTE | 2018-12-08 11:50 | NUR ---
Nutrition follow-up: Pt. S/P Sigmoid colectomy with lysis of adhesions(12/03/18). Pt. NPO. Receiving TPN- Clinimix 15@65ml/hr with 250ml 20% Intralipids. Labs reviewed(Alb 1.1, Na 134, K 3.0, Ca 7.2). SR-20, Right abd. ALONSO drain. Recommendations: 1) Rec. increase TPN rate to 83ml/hr to provide 1420kcal/100gm Protein. 2) Rec. continue 250ml 20% Intralipids -. 3) Continue to monitor pt's nutritional status. 4) Consult RD as nutrition concerns arise. Addendum: 12/08/18 at [address] Amended: Links added.
--- NOTE | 2018-12-08 12:05 | NUR ---
DON EAGLE AWARE OF PT'S FEET ARE EDEMATOUS STATES I WILL REVIEW HIS FLUIDS TO D/C ONE.
--- NOTE | 2018-12-08 14:00 | NUR ---
COLOSTOMY AND DRESSING CHANGED PER DR. BARTON, APPLY WOUND VACC WITH NEXT DRESSING CHANGE.
[2018-12-08 16:00] VITALS: BP 111/72
[2018-12-08] MEDS: M.V.I. IV [ADULT] 10 ML in CLINIMIX E 5%-15% 2,000 ML IV SCH (18:15)
--- NOTE | 2018-12-08 19:10 | NUR ---
PT TRANSFER UPDATE PT TRANSFER FROM ROOM 408 TO 318 AT THIS TIME, PT IN STABLE CONDITION, CARE ENDORSED.
--- NOTE | 2018-12-08 19:30 | NUR ---
PM Assessment Received pt with family at the bedside, TPN at 65cc/hr & NS at 75cc/hr infusing well via triple lumen central line. Family verified re: wound vac application to the wound secondary to report that Ileostomy has been leaking to the surgical wound, explained that I will re-assess surgical wound & ileostomy site & we have a standing order to initiate the wound vac if we need to change to ostomy bag again. Surgical wound re-assess, lower section noted re-opened, mid upper incision site where staple suture noted, some purulent drainage noted, moderate in amount when tried to apply pressure, no odor. I inform the pt/family we will notify Dr. Sandoval about this site might need to be re-open for better drainage then application of wound vac. Pt reminded only on clear liquid diet for now, claimed has been ambulating with physical therapist in the morning. Pt also advise to make sure ileostomy pouch need to be empty q 4 hours to avoid leaking, done.
[2018-12-08 19:35] VITALS: BP 122/79
[2018-12-08] MEDS: SUCRALFATE 1 GM/10 ML PO SCH (19:59)
[2018-12-08] MEDS: PANTOPRAZOLE 40 MG/VIAL IVP SCH (19:59)
[2018-12-08 23:28] VITALS: BP 107/68
[2018-12-09] MEDS: HYDROMORPHONE 1 MG/1 ML AMP IVP PRN ×5 (00:11→20:04)
[2018-12-09] MEDS: IPRATROPIUM/ALBUTEROL SULFATE 3 ML SOLUTION IH PRN ×5 (01:27→23:31)
[2018-12-09 03:40] VITALS: BP 109/72
[2018-12-09] MEDS: ZOSYN 3.375GM+NS 50ML 50 ML IV SCH ×3 (05:36→22:41)
[2018-12-09 05:59] LABS: BASOPHILS % (AUTO) 0.2 % (0.0-5.0); EOSINOPHILS % (AUTO) 0.5 % (0.0-8.0); HEMATOCRIT 23.4 % (42-54); LYMPHOCYTES % (AUTO) 9.5 % (21.0-51.0); MEAN CORPUSCULAR HEMOGLOBIN 28.4 pg (27.0-33.0); MEAN CORPUSCULAR HGB CONC 33.8 g/dL (32.0-36.0); MEAN CORPUSCULAR VOLUME 84.2 fL (79-99); NEUTROPHILS % (AUTO) 79.8 % (40.0-77.0); PLATELET COUNT (AUTO) 135 K/uL (130-400); RED BLOOD CELL COUNT(AUTO) 2.78 MIL/uL (4.50-6.20); RED CELL DISTRIBUTION WIDTH 19.9 % (11.0-15.5); WHITE BLOOD COUNT (AUTO) 9.4 K/uL (4.8-10.8)
[2018-12-09 06:21] LABS: ALBUMIN 1.2 g/dL (3.5-5.0); BILIRUBIN,TOTAL 0.4 mg/dL (0.2-1.0); CREATININE 0.5 mg/dL (0.5-1.5); MAGNESIUM 1.8 mg/dL (1.80-2.40); PHOSPHORUS 3.5 mg/dL (2.5-4.9); POTASSIUM 3.3 mmol/L (3.5-5.1); TOTAL PROTEIN, SERUM 5.2 g/dL (6.0-8.3)
[2018-12-09] MEDS: ACETYLCYSTEINE 10% 100MG/ML 4ML VIAL IH SCH ×4 (06:34→23:31)
[2018-12-09] MEDS: SUCRALFATE 1 GM/10 ML PO SCH ×4 (06:34→20:52)
[2018-12-09 08:00] VITALS: BP 112/71
[2018-12-09] MEDS: PANTOPRAZOLE 40 MG/VIAL IVP SCH ×2 (08:25→20:52)
[2018-12-09] MEDS: POTASSIUM CHLORIDE 20MEQ/100ML 100 ML IV PRN ×2 (08:26→20:52)
[2018-12-09] MEDS: SODIUM CHLORIDE 0.9% 1000ML 1,000 ML IV SCH ×2 (10:53→22:41)
[2018-12-09 12:00] VITALS: BP 111/79
[2018-12-09] MEDS: HEPARIN SODIUM 5000UNIT/ML 1ML VIAL SQ SCH ×2 (14:35→20:53)
[2018-12-09 16:00] VITALS: BP 116/83
[2018-12-09] MEDS: M.V.I. IV [ADULT] 10 ML in CLINIMIX E 5%-15% 2,000 ML IV SCH ×2 (18:15→20:55)
[2018-12-09 19:40] VITALS: BP 124/83
[2018-12-09] MEDS: MAGNESIUM 2GM PREMIX 50ML 50 ML IV PRN (22:41)
[2018-12-09 23:00] VITALS: BP 111/80
[2018-12-10] MEDS: HYDROMORPHONE 1 MG/1 ML AMP IVP PRN ×5 (00:20→20:59)
[2018-12-10 03:40] VITALS: BP 112/77
--- NOTE | 2018-12-10 04:20 | NUR ---
STATUS Pt has been requesting for pain med q 4 hr.Dilaudid given as per ordered.Ileostomy drained as needed,has liquid,brown output.ALONSO drained small amount yellowish output.Abdominal incision with dwayne,mid portion has small amt of serousanguinous drainage noted.Cleansed with ns covered with 4x4 gauze.Wound vac to lower abdomen working with no leak noted.
[2018-12-10] MEDS: HEPARIN SODIUM 5000UNIT/ML 1ML VIAL SQ SCH ×3 (04:42→21:01)
[2018-12-10 05:08] LABS: BASOPHILS % (AUTO) 0.4 % (0.0-5.0); EOSINOPHILS % (AUTO) 1.4 % (0.0-8.0); HEMATOCRIT 23.3 % (42-54); LYMPHOCYTES % (AUTO) 13.8 % (21.0-51.0); MEAN CORPUSCULAR HEMOGLOBIN 28.9 pg (27.0-33.0); MEAN CORPUSCULAR VOLUME 85.2 fL (79-99); NEUTROPHILS % (AUTO) 73.4 % (40.0-77.0); NUCLEATED RED BLOOD CELLS 0.1 % (0.0-0.19); PLATELET COUNT (AUTO) 175 K/uL (130-400); RED BLOOD CELL COUNT(AUTO) 2.73 MIL/uL (4.50-6.20); RED CELL DISTRIBUTION WIDTH 19.4 % (11.0-15.5); WHITE BLOOD COUNT (AUTO) 7.6 K/uL (4.8-10.8)
[2018-12-10 05:36] LABS: CREATININE 0.6 mg/dL (0.5-1.5); POTASSIUM 3.7 mmol/L (3.5-5.1)
[2018-12-10] MEDS: ZOSYN 3.375GM+NS 50ML 50 ML IV SCH ×3 (05:41→23:47)
[2018-12-10] MEDS: SUCRALFATE 1 GM/10 ML PO SCH ×4 (06:00→21:00)
[2018-12-10] MEDS: ACETYLCYSTEINE 10% 100MG/ML 4ML VIAL IH SCH ×4 (06:00→23:28)
[2018-12-10 08:00] VITALS: BP 113/72
[2018-12-10] MEDS ORDERED: M.V.I. IV [ADULT] 10 ML in CLINIMIX E 5%-15% 2,000 ML IV SCH ×2 (09:00→21:00)
[2018-12-10] MEDS: PANTOPRAZOLE 40 MG/VIAL IVP SCH ×2 (10:08→21:00)
[2018-12-10] MEDS: FAT EMULSIONS 20% 250ML 250 ML IV SCH (10:09)
[2018-12-10] MEDS: IPRATROPIUM/ALBUTEROL SULFATE 3 ML SOLUTION IH PRN ×2 (11:17→18:14)
[2018-12-10 12:00] VITALS: BP 116/73
[2018-12-10] MEDS: SODIUM CHLORIDE 0.9% 1000ML 1,000 ML IV SCH (13:52)
--- NOTE | 2018-12-10 15:20 | NUR ---
C consult Patient already has wound vac in place. No [facility] recommendations required at this time. Report given to patient's nurse, Santino BROWN.
--- NOTE | 2018-12-10 16:30 | NUR ---
ORDER REC'D FOR [facility] REFERRAL. THIS MORNING REVIEWED INSURANCE, MADE CALL TO HR TO REQUEST THE BLUE CROSS ID NUMBER [id number] PROBABLY NOT AN OPTION FOR THIS PATIENT- BIG CO PAYS CALL TO [facility], WHO ADVISED TO SEE IF SHELLI COULD DO ONE TIME CONTRACT. WILL FOLLOW UP IN AM Addendum: 12/10/18 at 1800 by DAVID SCHMIDT RN CM Amended: Links added.
[2018-12-10 18:04] VITALS: BP 119/76
[2018-12-10 19:25] VITALS: BP 117/73
[2018-12-11 00:32] VITALS: BP 119/78
[2018-12-11] MEDS: HYDROMORPHONE 1 MG/1 ML AMP IVP PRN ×5 (01:21→20:58)
[2018-12-11 04:00] VITALS: BP 119/73
[2018-12-11] MEDS: HEPARIN SODIUM 5000UNIT/ML 1ML VIAL SQ SCH ×3 (04:07→20:20)
[2018-12-11] MEDS: SODIUM CHLORIDE 0.9% 1000ML 1,000 ML IV SCH ×2 (04:07→17:46)
[2018-12-11] MEDS: ZOSYN 3.375GM+NS 50ML 50 ML IV SCH ×3 (05:36→20:58)
[2018-12-11 05:51] LABS: HEMATOCRIT 22.9 % (42-54); MEAN CORPUSCULAR HEMOGLOBIN 28.2 pg (27.0-33.0); MEAN CORPUSCULAR HGB CONC 33.5 g/dL (32.0-36.0); MEAN CORPUSCULAR VOLUME 84.2 fL (79-99); PLATELET COUNT (AUTO) 242 K/uL (130-400); RED BLOOD CELL COUNT(AUTO) 2.72 MIL/uL (4.50-6.20); RED CELL DISTRIBUTION WIDTH 19.4 % (11.0-15.5); WHITE BLOOD COUNT (AUTO) 7.5 K/uL (4.8-10.8)
[2018-12-11] MEDS: ACETYLCYSTEINE 10% 100MG/ML 4ML VIAL IH SCH (06:00)
--- NOTE | 2018-12-11 06:14 | NUR ---
flushed the central line ports again. good blood return. no issues.
[2018-12-11 06:18] LABS: CREATININE 0.6 mg/dL (0.5-1.5); POTASSIUM 3.9 mmol/L (3.5-5.1)
[2018-12-11] MEDS: SUCRALFATE 1 GM/10 ML PO SCH ×4 (06:47→20:22)
[2018-12-11 08:00] VITALS: BP 112/74
[2018-12-11] MEDS: PANTOPRAZOLE 40 MG/VIAL IVP SCH ×2 (09:50→20:22)
--- NOTE | 2018-12-11 10:00 | NUR ---
DISCUSSION RE DISCHARGE PLANNING CHART REVIEWED, NOTED THAT PATIENT HAS WOUND VAC, IV ABX, AND TPN. NOTED THAT THE PATIENT IS OW ON CLIQ WIHJOUT PAIN AND HAS GOOD OUTPUT THROUGH THE COLOSTOMY. NOT PT IS AFEBRILED, NO WBC, STILL WITH DRAINAGE AT INCISION LINE. ORDER FOR [facility] REVIEWED, DISCUSSED OPTIONS WITH PT AND WITH CM DIRECTOR. ASKED SHELLI TO RUN BENEFITS TO CHECK PTS LTACH VS SNF BENEFITS. WILL SEND TO [facility] IF PT HAS NO CO PAYS FOR LTACH REFERRAL . DISCUSSED W CM DIRECTOR, AGREED, Addendum: 12/11/18 at 1812 by DAVID SCHMIDT RN CM Amended: Links added.
[2018-12-11 12:00] VITALS: BP 116/70
--- NOTE | 2018-12-11 15:52 | NUR ---
RD FOLLOW UP Pt s/p Sigmoidoscopy/mass biopsy. Upon visit, Pt reports tolerating current Clear Liquid diet and requesting solid foods. Pt states has received Clear Liquid diet trays X4 days. When medically feasible, recommend to advance diet as tolerated to GI Soft/[place] diet. Pt LBM 9.24.19. pt monitored labs: H/H 7.7/22.9, Ca 7.3, Alb 1.2. Noted 2+ Pitting edema. RD to continue to monitor. Please notify RD as nutritional concerns arise. Thank you. Addendum: 12/11/18 at [address] RD Amended: Links added.
[2018-12-11 16:00] VITALS: BP 117/73
[2018-12-11] MEDS ORDERED: M.V.I. IV [ADULT] 10 ML in CLINIMIX E 5%-15% 2,000 ML IV SCH ×2 (17:00→21:00)
--- NOTE | 2018-12-11 19:00 | NUR ---
WOUND VAC Wound vac was removed per day shift nurse as per PA's order.Lower abdomen wound with wet to dry dressing.
[2018-12-11 19:28] VITALS: BP 113/71
[2018-12-12] VITALS (7 sets, daily range): BP systolic 107–122; BP diastolic 65–74
[2018-12-12] MEDS: HYDROMORPHONE 1 MG/1 ML AMP IVP PRN ×4 (03:19→21:02)
[2018-12-12] MEDS: HEPARIN SODIUM 5000UNIT/ML 1ML VIAL SQ SCH ×3 (03:44→21:01)
--- NOTE | 2018-12-12 03:49 | NUR ---
upper abdominal incision cleaned with NS. serosangenous classical abdominal wound with dwayne. 10cm in length x 4 cm width x 2 cm depth. packing performed. placed on wound vaccum. premedicated with dilaudid prior to clean wound.
[2018-12-12] MEDS: ZOSYN 3.375GM+NS 50ML 50 ML IV SCH ×3 (04:18→23:02)
[2018-12-12 06:09] LABS: HEMATOCRIT 23.6 % (42-54); MEAN CORPUSCULAR HEMOGLOBIN 28.8 pg (27.0-33.0); MEAN CORPUSCULAR HGB CONC 33.7 g/dL (32.0-36.0); MEAN CORPUSCULAR VOLUME 85.4 fL (79-99); NUCLEATED RED BLOOD CELLS 0.1 % (0.0-0.19); PLATELET COUNT (AUTO) 267 K/uL (130-400); RED BLOOD CELL COUNT(AUTO) 2.76 MIL/uL (4.50-6.20); RED CELL DISTRIBUTION WIDTH 19.2 % (11.0-15.5); WHITE BLOOD COUNT (AUTO) 8.7 K/uL (4.8-10.8)
[2018-12-12 06:20] LABS: CREATININE 0.6 mg/dL (0.5-1.5)
[2018-12-12] MEDS: SUCRALFATE 1 GM/10 ML PO SCH ×4 (06:42→20:59)
[2018-12-12] MEDS: PANTOPRAZOLE SODIUM 40 MG TABLET.DR PO SCH ×2 (09:27→17:14)
[2018-12-12] MEDS: SODIUM CHLORIDE 0.9% 1000ML 1,000 ML IV SCH ×2 (09:27→19:29)
[2018-12-12] MEDS: FAT EMULSIONS 20% 250ML 250 ML IV SCH ×2 (09:28→09:35)
--- NOTE | 2018-12-12 16:00 | NUR ---
DC PLAN REFERRAL AND SWITCH ORDER FOR [facility] BASED ON TPN X [address] DIAZ ROUNDED, CANCELLED [facility] REFERRAL ORDER FOR SNF . FAXED TO [facility] AND REFERRAL SENT . PENDING AUTH
[2018-12-12] MEDS ORDERED: M.V.I. IV [ADULT] 10 ML in CLINIMIX E 5%-15% 2,000 ML IV SCH (21:00)
[2018-12-13] MEDS: HYDROMORPHONE 1 MG/1 ML AMP IVP PRN ×5 (02:20→20:47)
[2018-12-13 03:50] VITALS: BP 123/65
[2018-12-13] MEDS: HEPARIN SODIUM 5000UNIT/ML 1ML VIAL SQ SCH ×3 (04:54→20:47)
[2018-12-13 06:11] LABS: HEMATOCRIT 23.7 % (42-54); MEAN CORPUSCULAR HEMOGLOBIN 28.4 pg (27.0-33.0); MEAN CORPUSCULAR HGB CONC 33.6 g/dL (32.0-36.0); MEAN CORPUSCULAR VOLUME 84.6 fL (79-99); PLATELET COUNT (AUTO) 328 K/uL (130-400); RED CELL DISTRIBUTION WIDTH 19.3 % (11.0-15.5); WHITE BLOOD COUNT (AUTO) 8.3 K/uL (4.8-10.8)
[2018-12-13] MEDS: ZOSYN 3.375GM+NS 50ML 50 ML IV SCH ×2 (06:12→15:03)
[2018-12-13 06:19] LABS: CREATININE 0.6 mg/dL (0.5-1.5); POTASSIUM 3.7 mmol/L (3.5-5.1)
[2018-12-13] MEDS: SUCRALFATE 1 GM/10 ML PO SCH ×4 (06:30→20:46)
[2018-12-13] MEDS: PANTOPRAZOLE SODIUM 40 MG TABLET.DR PO SCH ×2 (06:42→16:26)
[2018-12-13 07:30] VITALS: BP 112/69
[2018-12-13] MEDS: SODIUM CHLORIDE 0.9% 1000ML 1,000 ML IV SCH ×2 (10:16→20:54)
[2018-12-13 11:00] VITALS: BP 118/72
[2018-12-13 16:00] VITALS: BP 114/65
--- NOTE | 2018-12-13 16:00 | NUR ---
DISCUSSED DC PLAN WITH VASYL PT ON SOFT DIET. WOUND CARE AND ABX IS THE NEED FOR [facility] SURGYER IS IN AGREEMENT FOR PT TO GO WHENEVER HE IS ACCEPTED
[2018-12-13 20:00] VITALS: BP 108/61
[2018-12-13] MEDS ORDERED: M.V.I. IV [ADULT] 10 ML in CLINIMIX E 5%-15% 2,000 ML IV SCH (20:15)
[2018-12-14] VITALS: BP 120/76
[2018-12-14] MEDS: HYDROMORPHONE 1 MG/1 ML AMP IVP PRN ×5 (01:24→21:08)
[2018-12-14 04:00] VITALS: BP 110/60
[2018-12-14 04:37] LABS: HEMATOCRIT 23.2 % (42-54); MEAN CORPUSCULAR HEMOGLOBIN 28.6 pg (27.0-33.0); MEAN CORPUSCULAR HGB CONC 33.5 g/dL (32.0-36.0); MEAN CORPUSCULAR VOLUME 85.4 fL (79-99); PLATELET COUNT (AUTO) 331 K/uL (130-400); RED BLOOD CELL COUNT(AUTO) 2.72 MIL/uL (4.50-6.20); RED CELL DISTRIBUTION WIDTH 19.6 % (11.0-15.5); WHITE BLOOD COUNT (AUTO) 6.9 K/uL (4.8-10.8)
[2018-12-14] MEDS: HEPARIN SODIUM 5000UNIT/ML 1ML VIAL SQ SCH ×3 (04:39→21:08)
[2018-12-14 05:11] LABS: CREATININE 0.6 mg/dL (0.5-1.5); POTASSIUM 3.7 mmol/L (3.5-5.1)
[2018-12-14] MEDS: SUCRALFATE 1 GM/10 ML PO SCH ×4 (06:22→21:07)
[2018-12-14] MEDS: PANTOPRAZOLE SODIUM 40 MG TABLET.DR PO SCH ×2 (06:22→16:51)
[2018-12-14 08:00] VITALS: BP 111/64
--- NOTE | 2018-12-14 10:46 | NUR ---
Nutrition Follow-up: Pt. on GI Soft [place] diet with 25-50% p.o. intake. Pt. continues on TPN with Clinimix 5/15@65ml/hr. Pt. reports was receiving Ensure clear supp. previously and tolerated well. Pt. requesting Ensure Clear supp. QD with B'fast meal. Labs reviewed(Alb 1.2, Ca 7.5). LBM: 12/12/18. Recommendations: 1) Rec. Ensure Clear QD with B'fast meal. 2) Continue to monitor pt's nutritional status. 3) Consult RD as nutrition concerns arise. Addendum: 12/14/18 at [address] Amended: Links added.
[2018-12-14] MEDS: SODIUM CHLORIDE 0.9% 1000ML 1,000 ML IV SCH (11:29)
[2018-12-14] MEDS: FAT EMULSIONS 20% 250ML 250 ML IV SCH (11:44)
[2018-12-14 12:00] VITALS: BP 125/69
[2018-12-14 16:00] VITALS: BP 123/78
[2018-12-14 20:00] VITALS: BP 120/75
[2018-12-15] VITALS (7 sets, daily range): BP systolic 100–114; BP diastolic 56–75
[2018-12-15] MEDS: SODIUM CHLORIDE 0.9% 1000ML 1,000 ML IV SCH ×2 (01:01→15:59)
[2018-12-15] MEDS: HYDROMORPHONE 1 MG/1 ML AMP IVP PRN ×5 (01:05→20:03)
[2018-12-15] MEDS: HEPARIN SODIUM 5000UNIT/ML 1ML VIAL SQ SCH ×3 (03:48→19:44)
[2018-12-15] MEDS: PANTOPRAZOLE SODIUM 40 MG TABLET.DR PO SCH ×2 (06:37→15:59)
[2018-12-15] MEDS: SUCRALFATE 1 GM/10 ML PO SCH ×4 (06:37→19:42)
[2018-12-15] MEDS: IPRATROPIUM/ALBUTEROL SULFATE 3 ML SOLUTION IH PRN (18:26)
[2018-12-15] MEDS: ONDANSETRON HCL 4 MG/2 ML VIAL IVP PRN (23:48)
[2018-12-16] MEDS: HYDROMORPHONE 1 MG/1 ML AMP IVP PRN ×4 (02:50→20:00)
[2018-12-16 03:00] VITALS: BP 109/60
[2018-12-16] MEDS: SODIUM CHLORIDE 0.9% 1000ML 1,000 ML IV SCH ×2 (03:09→16:49)
[2018-12-16] MEDS: HEPARIN SODIUM 5000UNIT/ML 1ML VIAL SQ SCH ×3 (03:33→20:05)
[2018-12-16] MEDS: PANTOPRAZOLE SODIUM 40 MG TABLET.DR PO SCH ×3 (06:39→16:30)
[2018-12-16] MEDS: SUCRALFATE 1 GM/10 ML PO SCH ×4 (06:39→20:04)
[2018-12-16 08:00] VITALS: BP 104/57
[2018-12-16 12:00] VITALS: BP 101/58
[2018-12-16 16:00] VITALS: BP 106/62
[2018-12-16 19:30] VITALS: BP 101/69
[2018-12-17] VITALS (7 sets, daily range): BP systolic 95–108; BP diastolic 54–64
[2018-12-17] MEDS: HYDROMORPHONE 1 MG/1 ML AMP IVP PRN ×6 (00:15→22:12)
[2018-12-17] MEDS: HEPARIN SODIUM 5000UNIT/ML 1ML VIAL SQ SCH ×3 (04:37→21:14)
[2018-12-17 05:34] LABS: HEMATOCRIT 24.4 % (42-54); MEAN CORPUSCULAR HEMOGLOBIN 28.6 pg (27.0-33.0); MEAN CORPUSCULAR HGB CONC 33.9 g/dL (32.0-36.0); MEAN CORPUSCULAR VOLUME 84.5 fL (79-99); PLATELET COUNT (AUTO) 463 K/uL (130-400); RED BLOOD CELL COUNT(AUTO) 2.88 MIL/uL (4.50-6.20); RED CELL DISTRIBUTION WIDTH 18.6 % (11.0-15.5); WHITE BLOOD COUNT (AUTO) 6.5 K/uL (4.8-10.8)
[2018-12-17 05:54] LABS: CREATININE 0.7 mg/dL (0.5-1.5); POTASSIUM 4.1 mmol/L (3.5-5.1)
[2018-12-17] MEDS: SUCRALFATE 1 GM/10 ML PO SCH ×4 (06:28→21:06)
[2018-12-17] MEDS: PANTOPRAZOLE SODIUM 40 MG TABLET.DR PO SCH ×2 (06:28→17:16)
[2018-12-17] MEDS: SODIUM CHLORIDE 0.9% 1000ML 1,000 ML IV SCH ×2 (06:30→19:29)
--- NOTE | 2018-12-17 08:15 | NUR ---
Dilaudid 0.5 mg IV prn given accordingly prior to removal of 6 dwayne. No drainage noted. Dry and clean. Site cleansed with Povidone-iodine. Iodoform reapplied. Covered with gauzed. ALONSO drain dressing was also changed and site cleansed with sterile NS. Able to drain 15 ml of yellowish clear fluid. Procedure tolerated well. Pt. cooperates well. No untoward incident happened.
--- NOTE | 2018-12-17 09:49 | NUR ---
CM Note: Gianluca pending ins auth Spoke to Jeanna Rasmussen pt pending ins auth at this time. Primary nurse aware. CM to cont to follow up.
--- NOTE | 2018-12-17 10:34 | NUR ---
SENT COLOSTOMY INFO TO [facility] [id number] 70 MM 2 3/4 INCHES INFO TO [place] Addendum: 12/17/18 at 1035 by DAVID SCHMIDT RN CM THIS INFO WAS SENT ON 12/14/18
--- NOTE | 2018-12-17 15:02 | NUR ---
RD NOTIFICATION/ FOLLOW UP DX: SMALL BOWEL OBSTRUCTION. DIET: GI SOFT/ BLAND, ENSURE CLEAR QD. PO 50-75% AND HAS FAIR APPETITE PER PT. LBM: 12/17. PT NO LONGER RECEIVING CLINIMIX 08/01. SKIN INTACT, NO EDEMA. NO NAUSEA, VOMITING OR DIARRHEA [id number]. PT WILL BE LEAVING TO [facility], PENDING AUTHORIZATION PER NURSE. PT TOLERATING DIET AND ENSURE CLEAR WELL. PT REPORTS GOOD OUTPUT VIA COLOSTOMY BAG. S/P SIGMOIDOSCOPY AND BIOPSY. RD RECOMMENDS TO CONTINUE CURRENT DIET. RD WILL CONTINUE TO MONITOR AND FOLLOW UP NEEDED. THANK YOU. Addendum: 12/17/18 at [address] RD Amended: Links added.
[2018-12-18] MEDS: HEPARIN SODIUM 5000UNIT/ML 1ML VIAL SQ SCH ×3 (03:36→20:30)
[2018-12-18] MEDS: HYDROMORPHONE 1 MG/1 ML AMP IVP PRN ×4 (03:37→20:20)
[2018-12-18 04:09] VITALS: BP 124/67
[2018-12-18] MEDS: SODIUM CHLORIDE 0.9% 1000ML 1,000 ML IV SCH ×2 (04:44→22:09)
[2018-12-18] MEDS: SUCRALFATE 1 GM/10 ML PO SCH ×4 (06:14→20:19)
[2018-12-18] MEDS: PANTOPRAZOLE SODIUM 40 MG TABLET.DR PO SCH ×2 (06:14→15:52)
[2018-12-18 08:00] VITALS: BP 103/60
[2018-12-18 12:00] VITALS: BP 95/55
--- NOTE | 2018-12-18 15:08 | NUR ---
JUSTO Note: Gianluca pending ins auth Spoke to Jeanna Rasmussne, pt still currently pending ins auth at this time. Primary nurse aware. CM to cont to follow up.
[2018-12-18 16:00] VITALS: BP 114/68
[2018-12-18 19:00] VITALS: BP 109/63
[2018-12-18 23:45] VITALS: BP 101/64
[2018-12-19] MEDS: HYDROMORPHONE 1 MG/1 ML AMP IVP PRN ×5 (00:48→23:47)
[2018-12-19 04:00] VITALS: BP 95/59
[2018-12-19] MEDS: HEPARIN SODIUM 5000UNIT/ML 1ML VIAL SQ SCH ×3 (04:18→19:58)
[2018-12-19] MEDS: SUCRALFATE 1 GM/10 ML PO SCH ×4 (06:28→22:08)
[2018-12-19] MEDS: PANTOPRAZOLE SODIUM 40 MG TABLET.DR PO SCH ×2 (06:29→17:45)
[2018-12-19] MEDS: SODIUM CHLORIDE 0.9% 1000ML 1,000 ML IV SCH (06:34)
[2018-12-19 07:00] VITALS: BP 109/59
--- NOTE | 2018-12-19 10:07 | NUR ---
CM Note: Gianluca pending ins auth CM spoke to Jeanna Rasmussen, received updated clinicals and PT today. Aware there is order to DC once ins approves. Pt still pending ins auth at this time. Primary nurse aware. CM to cont to follow up.
[2018-12-19 12:00] VITALS: BP 100/65
--- NOTE | 2018-12-19 12:00 | NUR ---
WOUND VAC CHANGED WOUND VAC TO ABDOMEN CHANGED AT THIS TIME. PT TOLERATED WELL AND MEDICATED PRIOR. ONE PIECE OF BLACK FOAM USED. WILL CONT TO MONITOR
[2018-12-19 16:00] VITALS: BP 111/65
--- NOTE | 2018-12-19 18:54 | NUR ---
ALONSO DRAIN REMOVAL PT MEDICATED PRIOR. INTACT ALONSO DRAIN REMOVED WITH NO RESISTANCE PER MD ORDER. PT TOLERATED WELL. SITE COVERED WITH GAUZE AND TEGADERM. WILL CONT TO MONITOR Addendum: 12/19/18 at 1856 by MARGAUX HUSAIN RN RN ALONSO DRAIN REMOVED AT 1138
[2018-12-19 19:00] VITALS: BP 111/65
[2018-12-19 23:00] VITALS: BP 110/66
[2018-12-20 03:00] VITALS: BP 101/63
[2018-12-20] MEDS: HEPARIN SODIUM 5000UNIT/ML 1ML VIAL SQ SCH ×3 (03:51→19:37)
[2018-12-20] MEDS: SODIUM CHLORIDE 0.9% 1000ML 1,000 ML IV SCH ×2 (03:52→23:50)
[2018-12-20] MEDS: HYDROMORPHONE 1 MG/1 ML AMP IVP PRN ×2 (03:54→09:29)
[2018-12-20 06:13] LABS: BASOPHILS % (AUTO) 0.8 % (0.0-5.0); EOSINOPHILS % (AUTO) 3.2 % (0.0-8.0); HEMATOCRIT 22.9 % (42-54); LYMPHOCYTES % (AUTO) 22.6 % (21.0-51.0); MEAN CORPUSCULAR HEMOGLOBIN 28.3 pg (27.0-33.0); MEAN CORPUSCULAR HGB CONC 33.6 g/dL (32.0-36.0); MEAN CORPUSCULAR VOLUME 84.3 fL (79-99); MONOCYTES % (AUTO) 10.2 % (3.0-13.0); NEUTROPHILS % (AUTO) 63.2 % (40.0-77.0); PLATELET COUNT (AUTO) 445 K/uL (130-400); RED BLOOD CELL COUNT(AUTO) 2.72 MIL/uL (4.50-6.20); RED CELL DISTRIBUTION WIDTH 17.6 % (11.0-15.5); WHITE BLOOD COUNT (AUTO) 6.2 K/uL (4.8-10.8)
[2018-12-20 06:30] LABS: CREATININE 0.6 mg/dL (0.5-1.5); MAGNESIUM 1.5 mg/dL (1.80-2.40); PHOSPHORUS 3.9 mg/dL (2.5-4.9)
[2018-12-20] MEDS: PANTOPRAZOLE SODIUM 40 MG TABLET.DR PO SCH ×2 (06:40→15:55)
[2018-12-20] MEDS: SUCRALFATE 1 GM/10 ML PO SCH ×4 (06:40→21:41)
[2018-12-20 06:41] LABS: POTASSIUM 2.9 mmol/L (3.5-5.1)
[2018-12-20] MEDS: POTASSIUM CHLORIDE 20MEQ/100ML 100 ML IV PRN ×3 (06:47→19:00)
[2018-12-20 07:00] VITALS: BP 105/69
--- NOTE | 2018-12-20 07:49 | NUR ---
NOTIFIED RYAN QUIGLEY SHOEMAKING CUTTER FOR THE POTASSIUM LEVEL OF 2.9 NO ORDERS GIVEN. PATIENT IS ALREADY IN POTASSIUM PROTOCOL AND INFORMED HER THAT WE ARE ALREADY REPLACING HIS POTASSIUM
[2018-12-20 11:00] VITALS: BP 100/62
[2018-12-20] MEDS: HYDROCODONE/ACETAMINOPHEN 5/325 MG TAB PO PRN ×2 (15:56→23:50)
[2018-12-20 16:00] VITALS: BP 112/68
[2018-12-20] MEDS: HYDROMORPHONE HCL 0.5 MG/0.5 ML ML IVP PRN (19:32)
[2018-12-20 20:00] VITALS: BP 102/65
[2018-12-21] VITALS: BP 111/63
[2018-12-21] MEDS: HYDROMORPHONE HCL 0.5 MG/0.5 ML ML IVP PRN ×3 (02:45→18:03)
[2018-12-21] MEDS: SODIUM CHLORIDE 0.9% 1000ML 1,000 ML IV SCH (03:29)
[2018-12-21 04:00] VITALS: BP 103/63
[2018-12-21] MEDS: HEPARIN SODIUM 5000UNIT/ML 1ML VIAL SQ SCH ×3 (04:07→22:51)
[2018-12-21] MEDS: HYDROCODONE/ACETAMINOPHEN 5/325 MG TAB PO PRN ×3 (04:11→20:42)
[2018-12-21 07:00] VITALS: BP 105/67
[2018-12-21] MEDS: SUCRALFATE 1 GM/10 ML PO SCH ×4 (08:32→22:50)
[2018-12-21] MEDS: PANTOPRAZOLE SODIUM 40 MG TABLET.DR PO SCH ×2 (08:33→16:50)
--- NOTE | 2018-12-21 11:59 | NUR ---
DR. BARTON Contacted Dr. Barton's office. Spoke to Candi, Senior Java Web Application Developer. Stated Dr. Barton is out of town and that she would page Amie Arndt. Pending for him to call RN back to ask him if there are any plans to D/C wound vac or if it should be kept in place. Irina was discussed with shift lab technician nurse during report and also with charge nurse Corry and Auto Fleet Maintenance Manager Kelley.
[2018-12-21 12:00] VITALS: BP 105/65
--- NOTE | 2018-12-21 12:16 | NUR ---
NURSE PRACTITIONER Also, during her rounds, Nurse Practitioner Barbara Carroll asked nurse to call surgery toe nquire about the wound vac and if it was going to be removed or kept.
[2018-12-21] MEDS: POTASSIUM CHLORIDE 20MEQ/100ML 100 ML IV PRN (13:18)
[2018-12-21] MEDS: LIDOCAINE HCL-MPF 1% 2ML VIAL IV PRN (13:18)
--- NOTE | 2018-12-21 13:32 | NUR ---
CM Note: Financial denial from [facility] Spoke to Jeanna w/Gianluca, states pt has financial denial. [facility] updated w/poc for possible dc to home pending surgeon rec on wound and [facility] woundcare recommendations. As per [facility] wait until surgery makes recommendations, maybe woundvac can be dc's and pt can have packing dressing prior to dc instead. CM to work on [facility] ostomy supplies, Barbara Carroll DUST PULLER signed script, and possibly [facility] to assist w/dressing changes. Primary nurse aware. CM to cont to follow up. CM met with pt and spouse discussed financial denial w/[facility]. As per spouse she works w/[employer] will call [facility] to see why they have denied patient. Will call CM for update. Aware for now pt will still need ostomy supplies regarding, CM will work on getting supplies in the mean time. Spouse agreeable.
--- NOTE | 2018-12-21 13:39 | NUR ---
CM Note: Spouse update w/insurance Spouse called CM verbalized she called [facility] as she works directly w/insurance. As per [facility] they have not denied referral. They are requesting CPT codes from [facility] since 2 days ago, [facility] has not given CPT codes. Spouse will call [facility] regarding CPT codes and will call CM for any update. CM spoke to Jeanna made aware of the above. As per Jeanna will coordinate w/Barbara w/[facility] and will call CM back for updates. Pt and spouse is aware. Primary nurse is aware. CM to cont to follow up.
--- NOTE | 2018-12-21 13:40 | NUR ---
[facility]O Note: [facility] pending approval and delivery [facility] faxed script, clinicals to [facility], confirmation received. Spoke to Debra cordova/[facility] received order and clinicals. Pt pending approval and delivery. Primary nurse aware. CM to cont to follow up.
--- NOTE | 2018-12-21 14:35 | NUR ---
[facility] CONSULT [facility] RECOMMENDATIONS: CONTINUE WOUND VAC PREVIOUSLY ORDERED. Addendum: 12/21/18 at 1436 by EVETTE ESCALANTE LVN Amended: Links added.
[2018-12-21 16:00] VITALS: BP 104/66
--- NOTE | 2018-12-21 17:36 | NUR ---
CENTRAL LINE Started peripheral line # 22g to left hand without any problems. Then discontinued central line from right jugular area without any problems. Placed 2x2 gauze and hypafix tape. Patient tolerated it well.
--- NOTE | 2018-12-21 18:00 | NUR ---
[place] Mina Spoke with [place] in person during his rounds. He stated wound vac will stay in place as log as patient is in the hospital and that he will address with Dr. Sandoval if it will be removed or kept for discharge. Also, patient's stated she is trying to see if patient can get accepted at [facility].
[2018-12-21 19:50] VITALS: BP 114/76
[2018-12-22] VITALS (7 sets, daily range): BP systolic 90–109; BP diastolic 58–67
[2018-12-22] MEDS: HYDROMORPHONE HCL 0.5 MG/0.5 ML ML IVP PRN ×3 (02:57→21:35)
[2018-12-22 04:19] LABS: BASOPHILS % (AUTO) 0.5 % (0.0-5.0); EOSINOPHILS % (AUTO) 1.6 % (0.0-8.0); HEMATOCRIT 25.1 % (42-54); LYMPHOCYTES % (AUTO) 17.2 % (21.0-51.0); MEAN CORPUSCULAR HEMOGLOBIN 28.3 pg (27.0-33.0); MEAN CORPUSCULAR HGB CONC 33.7 g/dL (32.0-36.0); MEAN CORPUSCULAR VOLUME 84.2 fL (79-99); MONOCYTES % (AUTO) 9.3 % (3.0-13.0); NEUTROPHILS % (AUTO) 71.4 % (40.0-77.0); NUCLEATED RED BLOOD CELLS 0.1 % (0.0-0.19); PLATELET COUNT (AUTO) 489 K/uL (130-400); RED BLOOD CELL COUNT(AUTO) 2.98 MIL/uL (4.50-6.20); RED CELL DISTRIBUTION WIDTH 17.8 % (11.0-15.5); WHITE BLOOD COUNT (AUTO) 8.3 K/uL (4.8-10.8)
[2018-12-22 04:40] LABS: CREATININE 0.7 mg/dL (0.5-1.5); MAGNESIUM 1.3 mg/dL (1.80-2.40); POTASSIUM 3.5 mmol/L (3.5-5.1)
[2018-12-22] MEDS: HEPARIN SODIUM 5000UNIT/ML 1ML VIAL SQ SCH ×3 (06:03→21:41)
[2018-12-22] MEDS: PANTOPRAZOLE SODIUM 40 MG TABLET.DR PO SCH ×2 (10:50→17:06)
[2018-12-22] MEDS: SUCRALFATE 1 GM/10 ML PO SCH ×4 (10:51→21:34)
--- NOTE | 2018-12-22 12:05 | NUR ---
DCP UPDATE: Spoke w primary nurse and Tamar Carroll NP regarding dcp. Per Barbara, pt can be discharged home once cleared by surgery and final wound care recommendations are made. Informed primary nurse that CM would leave wound vac orders in chart for sx, so this can be setup if woundvac @ dc is recommended. CM to continue to follow and wait for final wound care orders from surgical team.
[2018-12-22] MEDS: HYDROCODONE/ACETAMINOPHEN 5/325 MG TAB PO PRN (14:44)
[2018-12-22] MEDS ORDERED: POTASSIUM CHLORIDE 20 MEQ ERTAB PO ONE ×2 (15:45→17:08)
[2018-12-23 03:00] VITALS: BP 98/61
[2018-12-23] MEDS: HYDROMORPHONE HCL 0.5 MG/0.5 ML ML IVP PRN ×2 (03:35→20:47)
[2018-12-23] MEDS: ONDANSETRON HCL 4 MG/2 ML VIAL IVP PRN (03:41)
[2018-12-23] MEDS: HEPARIN SODIUM 5000UNIT/ML 1ML VIAL SQ SCH ×3 (05:23→20:37)
[2018-12-23 06:38] LABS: MEAN CORPUSCULAR HEMOGLOBIN 28.1 pg (27.0-33.0); MEAN CORPUSCULAR HGB CONC 33.7 g/dL (32.0-36.0); MEAN CORPUSCULAR VOLUME 83.2 fL (79-99); PLATELET COUNT (AUTO) 472 K/uL (130-400); RED BLOOD CELL COUNT(AUTO) 3.13 MIL/uL (4.50-6.20); RED CELL DISTRIBUTION WIDTH 18.1 % (11.0-15.5); WHITE BLOOD COUNT (AUTO) 10.8 K/uL (4.8-10.8)
[2018-12-23 06:49] LABS: CREATININE 0.7 mg/dL (0.5-1.5); POTASSIUM 3.6 mmol/L (3.5-5.1)
[2018-12-23 08:00] VITALS: BP 94/54
[2018-12-23] MEDS: HYDROCODONE/ACETAMINOPHEN 5/325 MG TAB PO PRN ×2 (09:02→16:25)
[2018-12-23] MEDS: PANTOPRAZOLE SODIUM 40 MG TABLET.DR PO SCH ×2 (09:02→16:26)
[2018-12-23] MEDS: SUCRALFATE 1 GM/10 ML PO SCH ×4 (09:02→20:33)
[2018-12-23 11:00] VITALS: BP 95/52
[2018-12-23 15:48] VITALS: BP 105/59
--- NOTE | 2018-12-23 18:55 | NUR ---
COLOSTOMY CARE Patient had instructions given for colostomy care and he was also informed that somebody in his household, in addition to himself, need to be knowledgeable in how to change colostomy and how to do colostomy care and how to empty bag and irrigate and keep it functional. Stated he has observed care being provided and feels confident he could do it and that his will come and she will also learn to do the colostomy care. Stated she has already emptied the colostomy once.
--- NOTE | 2018-12-23 20:00 | NUR ---
COLOSTOMY Pt does not seem interested to care for his colostomy,states,"I've only done it once'".He asks staff to empty colostomy for him. Addendum: 12/23/18 at 8444 by SENTHIL HICKS RN RN Amended: Links added.
[2018-12-23 20:25] VITALS: BP 90/56
--- NOTE | 2018-12-23 20:47 | NUR ---
DILAUDID Pt requesting for Dilaudid,states pills work to slow.
[2018-12-23 23:16] VITALS: BP 102/57
[2018-12-24] MEDS: HYDROMORPHONE HCL 0.5 MG/0.5 ML ML IVP PRN ×3 (03:05→21:12)
[2018-12-24 03:39] VITALS: BP 95/55
[2018-12-24] MEDS: HEPARIN SODIUM 5000UNIT/ML 1ML VIAL SQ SCH ×3 (04:18→21:12)
[2018-12-24] MEDS: PANTOPRAZOLE SODIUM 40 MG TABLET.DR PO SCH ×2 (05:51→18:11)
[2018-12-24] MEDS: SUCRALFATE 1 GM/10 ML PO SCH ×4 (05:51→21:12)
[2018-12-24 08:02] VITALS: BP 100/62
[2018-12-24 08:04] VITALS: BP 134/61
[2018-12-24] MEDS: HYDROCODONE/ACETAMINOPHEN 5/325 MG TAB PO PRN (08:15)
--- NOTE | 2018-12-24 11:20 | NUR ---
VASYL LARA FOR SURGERY NEED TO KNOW WOUND CARE RECOMMENDATIONS PRIOR TO DISCHARGE
[2018-12-24 12:00] VITALS: BP 101/59
--- NOTE | 2018-12-24 15:46 | NUR ---
RD NOTIFICATION/ FOLLOW UP. DX: SMALL BOWEL OBSTRUCTION. DIET: GI SOFT/ BLAND, ENSURE CLEAR QD. LBM: 12/24. PO INTAKE 75% AND HAS STEADY APPETITE PER PT. S/P SIGMOIDOSCOPY AND BIOPSY. D/C CLINIMIX 08/01 PER NURSE. PT DRINKING 100% ENSURE CLEAR AND ENJOYS IT. NO EDEMA, SKIN INTACT. PT PENDING D/C TODAY. RD RECOMMENDS TO CONTINUE CURRENT DIET. RD WILL FOLLOW UP NEEDED. THANK YOU. Addendum: 12/24/18 at 15[address] A [address] RD Amended: Links added.
--- NOTE | 2018-12-24 16:00 | NUR ---
CM Note: Spoke to [place] BOBO Spoke to [place] Tinoco covering for Dr Sandoval. [facility] woundvac signed, primary nurse pending to change woundvac and pending measurements today. As per [place] pt may DC once [facility] arranged, pt to follow up w/[facility] for dressing changes 2-3x/wk x 2 months, [facility] ok to make recommendations. If denied primary nurse to teach pt and family cleanse wound w/saline, apply wet to dry dressing daily and/prn. C to assist with wound dressing changes 2x/wk until healed, [facility] ok to make recommendations. Order entered. Primary nurse and charge nurse aware. Verbalized changing woundvac and will take measurements. Will let CM know once available. CM to cont to follow.
--- NOTE | 2018-12-24 16:41 | NUR ---
[facility] Note: [facility] pending approval and delivery CM faxed order and clinicals to [facility], confirmation received. Currently pending wound measurements once primary nurse and charge nurse change woundvac today. Will fax signed script once measurements entered. Primary nurse aware. CM to cont to follow up.
--- NOTE | 2018-12-24 16:42 | NUR ---
CM Note: [facility] pending approval Faxed order and clinicals to [facility], confirmation received. Pt pending [facility] woundvac approval/denial. [facility] pending approval. Primary nurse aware. CM to cont to follow up.
[2018-12-24 18:01] VITALS: BP 104/61
[2018-12-24 20:00] VITALS: BP 97/59
[2018-12-25] VITALS (7 sets, daily range): BP systolic 96–117; BP diastolic 42–95
[2018-12-25] MEDS: HYDROMORPHONE HCL 0.5 MG/0.5 ML ML IVP PRN ×2 (01:23→10:11)
[2018-12-25] MEDS: HYDROCODONE/ACETAMINOPHEN 5/325 MG TAB PO PRN ×2 (03:05→16:21)
[2018-12-25] MEDS: HEPARIN SODIUM 5000UNIT/ML 1ML VIAL SQ SCH ×3 (03:06→20:49)
[2018-12-25] MEDS: PANTOPRAZOLE SODIUM 40 MG TABLET.DR PO SCH ×2 (06:54→16:21)
[2018-12-25] MEDS: SUCRALFATE 1 GM/10 ML PO SCH ×4 (06:54→20:47)
--- NOTE | 2018-12-25 11:40 | NUR ---
CM Notes: [facility] denied wound too small; [facility] approved to assist w/woundcare 2x/wk CM spoke to Teresa Peng RN aware [facility] denied, [place] [facility] ok to dc to home w/wet to dry dressing daily pt to f/u w/[facility] 2x/wk until wound healed, [facility] ok to make recommendations. [facility] approved, spoke to Lea confirmed clinicals and order faxed yesterday received, appt Sunday 12/31 @ 1609 w/Dr White. Pt and spouse aware. Spouse will drop by after work today for primary nurse to teach dressing changes. Pt and spouse aware [facility] approved spoke to Jenny, will have equipments delivered at home. Patient will be given temporary supplies for wound and ostomy in the mean time once pt ready to DC. Primary nurse aware. CM to cont to follow up.
--- NOTE | 2018-12-25 18:55 | NUR ---
Was starting discharge instruction with pt and , when patient stated he will not be discharged home without pain medications. JERAMIE Conrad notified and stated he will see pt in the am. Pt tolerated well. /Girlfriend present and assisted with applying wet to dry dressing. Wound Vac removed from abdomen. Cleansed wound with NS, patted dry, applied moisted gauze, covered with gauze and secured with tape. Pt tolerated overall well.
[2018-12-26] MEDS: HYDROCODONE/ACETAMINOPHEN 5/325 MG TAB PO PRN ×2 (01:03→11:21)
--- NOTE | 2018-12-26 01:35 | NUR ---
verbalizes abdominal pain and claims it is time for his dilaudid medication Addendum: 12/26/18 at 0136 by SHAHID FOSTER RN Amended: Links added.
[2018-12-26 03:44] VITALS: BP 114/49
[2018-12-26] MEDS: HEPARIN SODIUM 5000UNIT/ML 1ML VIAL SQ SCH (03:58)
[2018-12-26] MEDS: PANTOPRAZOLE SODIUM 40 MG TABLET.DR PO SCH (05:54)
[2018-12-26] MEDS: SUCRALFATE 1 GM/10 ML PO SCH (05:54)
[2018-12-26 08:00] VITALS: BP 100/62
[2018-12-26 11:38] VITALS: BP 102/59
--- NOTE | 2018-12-26 12:35 | NUR ---
Patient discharged in stable condition. Reinforced on how to perform wound care. Wound dressing performed to mid abdomen. Cleansed with NS, pat dry, applied wet to dry covered with 4x4 gauze and secured with tape. Went over scheduled appointments with Dr. Park and Dr. Sandoval. Prescription for Tramadol and ZOfran PO given to patient and reviewed potential side Effects. Pt verbalized understanding. When instructing on how to change and when to change ileostomy. Pt stated that he already knew how. Instructed to report s/s of infection, redness, odor, increased drainage fever or chills. Pt already has appt with [facility] on 12/31/18. IV removed. pt with no other questions or concerns.
== END 2018-12-26 13:30 | disposition home or self-care (01) | DRG 854 ==
LOC: EDH 12:22 → OBSVTOIN 15:05 → EDHIP 15:05 → 3BH 18:30 → 2CH 12-03 17:24 → 4BH 12-06 16:21 → 3CH 12-08 19:04
PROVIDERS: ADMIT Internal Medicine Critical Care Medicine; ATTEND Internal Medicine Critical Care Medicine
PROC: 0DBN8ZX Excision of Sigmoid Colon, Via Natural or Artificial Opening Endoscopic, Diagnostic (ICD-10-PCS; 2018-12-02)
PROC: 0DN60ZZ Release Stomach, Open Approach (ICD-10-PCS; principal; 2018-12-03 11:25)
PROC: 0DBN0ZZ Excision of Sigmoid Colon, Open Approach (ICD-10-PCS; 2018-12-03 11:25)
PROC: 0D1B0Z4 Bypass Ileum to Cutaneous, Open Approach (ICD-10-PCS; 2018-12-03 11:25)
PROC: 0BH17EZ Insertion of Endotracheal Airway into Trachea, Via Natural or Artificial Opening (ICD-10-PCS; 2018-12-03 11:25)
PROC: 5A1935Z Respiratory Ventilation, Less than 24 Consecutive Hours (ICD-10-PCS; 2018-12-03 11:25)
DX: A41.9 Sepsis, unspecified organism (principal); C18.9 Malignant neoplasm of colon, unspecified; K56.609 Unspecified intestinal obstruction, unspecified as to partial versus complete obstruction; E44.0 Moderate protein-calorie malnutrition; K31.6 Fistula of stomach and duodenum; K56.699 Other intestinal obstruction unspecified as to partial versus complete obstruction; R93.3 Abnormal findings on diagnostic imaging of other parts of digestive tract; D69.6 Thrombocytopenia, unspecified; Z90.49 Acquired absence of other specified parts of digestive tract; Z93.3 Colostomy status; Z68.26 Body mass index [BMI] 26.0-26.9, adult; Z74.01 Bed confinement status
CPT/HCPCS: 36415; 45331; 45335; 74018; 74176; 74177; 80048; 80053; 80061; 81001; 82378; 82435; 82803; 82947; 82948; 83605; 83690; 83735; 84100; 84132; 84295; 84484; 85014; 85018; 85025; 85027; 85610; 85730; 86850; 86900; 86901; 88305; 88307; 94002; 94150; 94640; 94664; 97039; A5061; C9113; G0378; J0330; J0694; J1100; J1170; J1644; J2001; J2250; J2405; J2543; J2704; J2710; J2795; J3010; J3475; J3480; J3490; J7030; J7040; J7120; J7608; P9045; Q9963; Q9967

== ENCOUNTER → 2018-12-31 | Outpatient (CLI) | payer OTHER ==
[~2018-12-31] MED LIST changes: -BISA5TAB12 PO
[2018-12-31 11:26] VITALS: BP 96/64
== END | disposition home or self-care (01) ==
LOC: WHH 09:00
PROVIDERS: ATTEND Family Medicine
DX: T81.89XA Other complications of procedures, not elsewhere classified, initial encounter (principal); I10 Essential (primary) hypertension; K21.9 Gastro-esophageal reflux disease without esophagitis; E44.1 Mild protein-calorie malnutrition; D69.6 Thrombocytopenia, unspecified; M19.90 Unspecified osteoarthritis, unspecified site; Z85.038 Personal history of other malignant neoplasm of large intestine; Z93.3 Colostomy status; Z90.49 Acquired absence of other specified parts of digestive tract; Y83.8 Other surgical procedures as the cause of abnormal reaction of the patient, or of later complication, without mention of misadventure at the time of the procedure; Y92.89 Other specified places as the place of occurrence of the external cause
CPT/HCPCS: 17250; A6022

== ENCOUNTER → 2019-01-07 | Outpatient (CLI) | payer OTHER ==
[~2019-01-07] MED LIST changes: +LIDOCAINE/PRILOCAINE CREAM 5GM TUBE TP ONE; +SILVER NITRATE APPLICATOR 1 SWAB TP ONE
[2019-01-07 11:03] VITALS: BP 111/75
== END | disposition home or self-care (01) ==
LOC: WHH 09:15
PROVIDERS: ATTEND Family Medicine
DX: T81.89XD Other complications of procedures, not elsewhere classified, subsequent encounter (principal); C18.9 Malignant neoplasm of colon, unspecified; I10 Essential (primary) hypertension; K21.9 Gastro-esophageal reflux disease without esophagitis; E44.0 Moderate protein-calorie malnutrition; D69.6 Thrombocytopenia, unspecified; M19.90 Unspecified osteoarthritis, unspecified site; Z90.49 Acquired absence of other specified parts of digestive tract; Z93.3 Colostomy status
CPT/HCPCS: 17250; A6022; J3490

== ENCOUNTER → 2019-01-14 | Outpatient (CLI) | payer OTHER ==
[~2019-01-14] MED LIST changes: -SILVER NITRATE APPLICATOR 1 SWAB TP ONE
[2019-01-14 10:56] VITALS: BP 104/65
== END ==
LOC: WHH 09:30
PROVIDERS: ATTEND Family Medicine
DX: T81.89XD Other complications of procedures, not elsewhere classified, subsequent encounter (principal); C18.9 Malignant neoplasm of colon, unspecified; I10 Essential (primary) hypertension; K21.9 Gastro-esophageal reflux disease without esophagitis; E44.0 Moderate protein-calorie malnutrition; D69.6 Thrombocytopenia, unspecified; M19.90 Unspecified osteoarthritis, unspecified site; Z93.3 Colostomy status; Z90.49 Acquired absence of other specified parts of digestive tract; Y83.8 Other surgical procedures as the cause of abnormal reaction of the patient, or of later complication, without mention of misadventure at the time of the procedure
CPT/HCPCS: 99214; A6022; J3490

== ENCOUNTER → 2019-01-21 | Outpatient (CLI) | payer OTHER ==
[~2019-01-21] MED LIST changes: -LIDOCAINE/PRILOCAINE CREAM 5GM TUBE TP ONE
[2019-01-21 10:14] VITALS: BP 130/80
== END | disposition home or self-care (01) ==
LOC: WHH 09:30
PROVIDERS: ATTEND Family Medicine
DX: T81.89XD Other complications of procedures, not elsewhere classified, subsequent encounter (principal); C18.9 Malignant neoplasm of colon, unspecified; I10 Essential (primary) hypertension; K21.9 Gastro-esophageal reflux disease without esophagitis; E44.0 Moderate protein-calorie malnutrition; D69.6 Thrombocytopenia, unspecified; M19.90 Unspecified osteoarthritis, unspecified site; Z93.3 Colostomy status; Z90.49 Acquired absence of other specified parts of digestive tract; Y83.8 Other surgical procedures as the cause of abnormal reaction of the patient, or of later complication, without mention of misadventure at the time of the procedure
CPT/HCPCS: 99214; A6022

== ENCOUNTER 2019-01-28 09:15 | Outpatient (CLI) | payer OTHER ==
[2019-01-28 10:44] VITALS: BP 128/83
== END 2019-01-28 12:52 | disposition home or self-care (01) ==
LOC: WHH 09:15
PROVIDERS: ATTEND Family Medicine
DX: T81.89XD Other complications of procedures, not elsewhere classified, subsequent encounter (principal); C18.9 Malignant neoplasm of colon, unspecified; I10 Essential (primary) hypertension; K21.9 Gastro-esophageal reflux disease without esophagitis; E44.0 Moderate protein-calorie malnutrition; D69.6 Thrombocytopenia, unspecified; M19.90 Unspecified osteoarthritis, unspecified site; Z93.3 Colostomy status; Z90.49 Acquired absence of other specified parts of digestive tract; Y83.8 Other surgical procedures as the cause of abnormal reaction of the patient, or of later complication, without mention of misadventure at the time of the procedure
CPT/HCPCS: 99214

== ENCOUNTER 2019-01-30 09:55 | Day surgery (SDC) | payer OTHER ==
[~2019-01-30] VITALS: Ht 177.8 cm; Wt 85.7 kg
[~2019-01-30 09:55] MED LIST changes: +SODIUM CHLORIDE 0.9% 1000ML 1,000 ML IV ONE
[2019-01-30 10:56] VITALS: BP 106/74
[2019-01-30] MEDS ORDERED: PROPOFOL 10 MG/ML 20ML VIAL IV ONE (11:22)
[2019-01-30] MEDS ORDERED: LIDOCAINE HCL-MPF 2% 5ML VIAL ONE (11:23)
[2019-01-30] MEDS ORDERED: LIDOCAINE HCL 1% 20 ML VIAL ONE (11:23)
[2019-01-30 11:45] VITALS: BP 87/49
[2019-01-30 11:50] VITALS: BP 93/56
[2019-01-30 11:55] VITALS: BP 92/55
[2019-01-30 12:00] VITALS: BP 90/47
[2019-01-30 12:05] VITALS: BP 100/55
== END 2019-01-30 12:20 | disposition home or self-care (01) ==
LOC: ENDO 09:55 → DAH 09:55 → ENDO 12:20
PROVIDERS: ATTEND Student in an Organized Health Care Education/Training Program
DX: K31.6 Fistula of stomach and duodenum (principal); C18.2 Malignant neoplasm of ascending colon; Z79.899 Other long term (current) drug therapy; Z90.49 Acquired absence of other specified parts of digestive tract; Z98.890 Other specified postprocedural states; Z72.89 Other problems related to lifestyle; Z82.49 Family history of ischemic heart disease and other diseases of the circulatory system; Z83.3 Family history of diabetes mellitus
CPT/HCPCS: 43235; A4215; A4221; A4222; A4223; A4606; A4620; A4663; J2704; J3490; J7030

== ENCOUNTER 2019-02-08 11:28 | Day surgery (SDC) | payer OTHER ==
[2019-02-06 12:18] LABS: BASOPHILS % (AUTO) 0.2 % (0.0-5.0); EOSINOPHILS % (AUTO) 1.2 % (0.0-8.0); HEMATOCRIT 32.6 % (42-54); LYMPHOCYTES % (AUTO) 15.9 % (21.0-51.0); MEAN CORPUSCULAR HEMOGLOBIN 27.6 pg (27.0-33.0); MEAN CORPUSCULAR HGB CONC 32.7 g/dL (32.0-36.0); MEAN CORPUSCULAR VOLUME 84.3 fL (79-99); MONOCYTES % (AUTO) 10.2 % (3.0-13.0); NEUTROPHILS % (AUTO) 72.5 % (40.0-77.0); PLATELET COUNT (AUTO) 358 K/uL (130-400); RED BLOOD CELL COUNT(AUTO) 3.87 MIL/uL (4.50-6.20); RED CELL DISTRIBUTION WIDTH 17.6 % (11.0-15.5); WHITE BLOOD COUNT (AUTO) 8.7 K/uL (4.8-10.8)
[2019-02-06 12:31] VITALS: BP 118/61
--- NOTE | 2019-02-06 13:20 | NUR ---
NPO STATUS: DR. CHAN BARTON AND LANDON BURRIS TAPPER OPERATOR MADE AWARE OF PATIENTS NPO STATUS - BREAKFAST ON A BUN AT 08:30 AM TODAY. ORDERS GIVEN PER DR. BARTON.
[~2019-02-08] VITALS: Ht 180.3 cm; Wt 85.3 kg
[2019-02-08] VITALS (16 sets, daily range): BP systolic 78–110; BP diastolic 40–69
[~2019-02-08 11:28] MED LIST changes: -ACET-2743 PO; +CEFAZOLIN SODIUM 1 GM VIAL IVP SCH; -DICY20TA11 PO; +LACTATED RINGERS 1000ML 0 ML IV ONE; -OMEP40CA13 PO; -SODIUM CHLORIDE 0.9% 1000ML 1,000 ML IV ONE; +SODIUM CHLORIDE 0.9% 1000ML 1,000 ML IV SCH
[2019-02-08] MEDS ORDERED: LACTATED RINGERS 1000ML 1,000 ML IV ONE (13:06)
[2019-02-08] MEDS ORDERED: CEFAZOLIN SODIUM 1 GM VIAL ONE (13:06)
[2019-02-08] MEDS ORDERED: MIDAZOLAM HCL 1 MG/ML 2ML VIAL ONE (14:28)
[2019-02-08] MEDS ORDERED: PROPOFOL 10 MG/ML 20ML VIAL IV ONE (14:28)
[2019-02-08] MEDS ORDERED: FENTANYL CITRATE PF 50 MCG/1 ML 2ML VIAL ONE (14:29)
[2019-02-08] MEDS ORDERED: LIDOCAINE PF 2% 5ML ABBOJECT ONE (14:32)
[2019-02-08] MEDS ORDERED: BUPIVACAINE/PF 0.25% 30ML VIAL IJ ONE (14:41)
[2019-02-08] MEDS ORDERED: EPHEDRINE SULFATE 50 MG/ML AMPULE ONE (14:44)
[2019-02-08] MEDS ORDERED: ONDANSETRON HCL 4 MG/2 ML VIAL ONE (14:45)
[2019-02-08] MEDS ORDERED: DEXAMETHASONE SOD PHOSPHATE 10MG/ML 1ML VIAL ONE (14:45)
[2019-02-08] MEDS ORDERED: PHENYLEPHRINE HCL 10 MG/ML 1ML VIAL IV ONE (15:19)
--- NOTE | 2019-02-08 16:35 | NUR ---
PATIENT ARRIVED PATIENT BROUGHT TO DAY PATIENT ROOM 5 VIA STRETCHER BY KEVIN RADER.. PATIENT AAOX3,RESPIRATIONS UNLABORED,VITAL SIGNS STABLE. PATIENT DENIES ANY PAIN AT THIS TIME. DRESSING TO LEFT UPPER CHEST WITH OPSITE IS DRY AND INTACT. MINIMAL REDNESS NOTED AROUND SURGICAL SITE. NO DRAINAGE OR HEMATOMA NOTED. SIDERAILS UP X2,BED IN LOWEST POSITION,CALL VELAZQUEZ IN REACH.
--- NOTE | 2019-02-08 17:05 | NUR ---
DISCHARGE INSTRUCTIONS DISCHARGE INSTRUCTIONS PROVIDED TO PATIENT'S GIRLFRIEND. PATIENT INSTRUCTED TO CALL DR BARTON'S OFFICE ON MONDAY FOR FOLLOW UP APPOINTMENT. PATIENT INSTRUCTED TO KEEP DRESSING IN PLACE AND DO NOT REMOVE OR GET WET. PATIENT AND GIRLFRIEND VERBALIZED UNDERSTANDING. ALL QUESTIONS/CONCERNS ADDRESSED. PATIENT PROVIDED WITH PRESCRIPTIONS AND CARD/PAMPHLET WITH PORT-A-CATH INFORMATION.
--- NOTE | 2019-02-08 17:20 | NUR ---
PATIENT DISCHARGED PATIENT DISCHARGED FROM FACILITY VIA WHEELCHAIR AND TAKEN TO PRIVATE VEHICLE BEING DRIVEN BY FRIEND/FAMILY.
== END 2019-02-08 17:20 | disposition home or self-care (01) ==
LOC: DAH 11:28
PROVIDERS: ATTEND Student in an Organized Health Care Education/Training Program
DX: C18.9 Malignant neoplasm of colon, unspecified (principal); Z98.890 Other specified postprocedural states; Z90.49 Acquired absence of other specified parts of digestive tract; Z72.89 Other problems related to lifestyle; Z82.49 Family history of ischemic heart disease and other diseases of the circulatory system; Z83.3 Family history of diabetes mellitus
CPT/HCPCS: 36415; 36561; 71045; 85025; A4213; A4215; A4221; A4222; A4223; A4600; A4606; A4663; A4930; A6207; C1788; J0690; J1100; J1644; J2001; J2250; J2370; J2405; J2704; J3010; J3490 ×2; J7120; 77002

== ENCOUNTER → 2019-06-07 | Outpatient (CLI) | payer OTHER ==
[~2019-06-07] MED LIST changes: +APIX5TAB PO; -CEFAZOLIN SODIUM 1 GM VIAL IVP SCH; +CIPR500S5 PO; -LACTATED RINGERS 1000ML 0 ML IV ONE; +LORA10TA7 PO; +METR-172 PO; -SODIUM CHLORIDE 0.9% 1000ML 1,000 ML IV SCH
== END | disposition home or self-care (01) ==
LOC: RAH 13:49
PROVIDERS: ATTEND Family Medicine
DX: R07.89 Other chest pain (principal)
CPT/HCPCS: 71046

== ENCOUNTER 2019-06-08 11:19 | Inpatient (IN) | payer OTHER ==
[~2019-06-08] VITALS: Ht 185.4 cm; Wt 81.8 kg
[2019-06-08 12:37] LABS: BASOPHILS % (AUTO) 0.2 % (0.0-5.0); EOSINOPHILS % (AUTO) 0.3 % (0.0-8.0); HEMATOCRIT 27.4 % (42-54); LYMPHOCYTES % (AUTO) 21.6 % (21.0-51.0); MEAN CORPUSCULAR HEMOGLOBIN 25.2 pg (27.0-33.0); MEAN CORPUSCULAR VOLUME 81.3 fL (79-99); MONOCYTES % (AUTO) 14.6 % (3.0-13.0); NEUTROPHILS % (AUTO) 62.8 % (40.0-77.0); PLATELET COUNT (AUTO) 239 K/uL (130-400); RED BLOOD CELL COUNT(AUTO) 3.37 MIL/uL (4.50-6.20); RED CELL DISTRIBUTION WIDTH 22.8 % (11.0-15.5)
[2019-06-08 12:54] LABS: INR 1.25 (0.85-1.15); PARTIAL THROMBOPLASTIN TIME 30.3 SEC (26.3-35.5); POTASSIUM 3.4 mmol/L (3.5-5.1); PROTHROMBIN TIME 13.4 SEC (9.6-11.6)
[2019-06-08 12:58] LABS: ALBUMIN 2.5 g/dL (3.5-5.0); BILIRUBIN,TOTAL 0.5 mg/dL (0.2-1.0); CRP QUANTITATIVE 53.5 mg/L (0.00-9.0); TOTAL PROTEIN, SERUM 6.8 g/dL (6.0-8.3)
[2019-06-08 13:41] LABS: ERYTHROCYTE SEDIMENTATION RATE 50 MM/HR (0-15)
[2019-06-08] MEDS ORDERED: ENOXAPARIN SODIUM 100 MG/1 ML SQ ONE (15:44)
[2019-06-08] MEDS ORDERED: ACETAMINOPHEN-CODEINE 300/30MG TAB PO PRN (17:15)
[2019-06-08] MEDS: SODIUM CHLORIDE 0.9% 1000ML 1,000 ML IV SCH (17:15)
[2019-06-08] MEDS ORDERED: ONDANSETRON HCL 4 MG/2 ML VIAL IVP PRN (17:15)
[2019-06-08] MEDS ORDERED: ACETAMINOPHEN 325 MG TAB PO PRN (17:15)
[2019-06-08] MEDS ORDERED: HYDRALAZINE HCL 20 MG/ML VIAL IV PRN (17:15)
[2019-06-08] MEDS ORDERED: IPRATROPIUM/ALBUTEROL SULFATE 3 ML SOLUTION IH PRN (17:15)
[2019-06-08] MEDS ORDERED: LACTULOSE 20 GM/30 ML UDCUP PO PRN (17:15)
[2019-06-08 17:47] LABS: EOSINOPHILS % (AUTO) 0.6 % (0.0-8.0); HEMATOCRIT 27.7 % (42-54); LYMPHOCYTES % (AUTO) 25.3 % (21.0-51.0); MEAN CORPUSCULAR HEMOGLOBIN 25.6 pg (27.0-33.0); MEAN CORPUSCULAR HGB CONC 31.4 g/dL (32.0-36.0); MEAN CORPUSCULAR VOLUME 81.5 fL (79-99); NEUTROPHILS % (AUTO) 61.7 % (40.0-77.0); PLATELET COUNT (AUTO) 235 K/uL (130-400); RED CELL DISTRIBUTION WIDTH 22.8 % (11.0-15.5); WHITE BLOOD COUNT (AUTO) 5.4 K/uL (4.8-10.8)
[2019-06-08 18:02] LABS: INR 1.26 (0.85-1.15); PARTIAL THROMBOPLASTIN TIME 37.2 SEC (26.3-35.5); PROTHROMBIN TIME 13.5 SEC (9.6-11.6)
[2019-06-08 19:45] VITALS: BP 102/55
[2019-06-08] MEDS: HEPARIN SODIUM 5000UNIT/ML 1ML VIAL SQ PRN (19:53)
[2019-06-08] MEDS: HEPARIN 25000 UNITS/250 ML D5W 250 ML IV SCH (19:53)
[2019-06-08] MEDS ORDERED: LORA10TA7 PO (22:26)
[2019-06-08] MEDS ORDERED: CIPR500S5 PO (22:26)
[2019-06-08] MEDS ORDERED: METR-172 PO (22:26)
[2019-06-09] VITALS: BP 105/57
[2019-06-09 04:00] VITALS: BP 98/60
[2019-06-09 08:00] VITALS: BP 99/56
[2019-06-09] MEDS: PANTOPRAZOLE SODIUM 40 MG TABLET.DR PO SCH ×2 (09:48→09:55)
[2019-06-09 11:31] VITALS: BP 96/51
--- NOTE | 2019-06-09 11:57 | NUR ---
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 PT STATES NO SIDE EFFECTS OF CHEMO, GOOD APPETITE NO FATIGUE- DCP IS HOME, GIRL FRIEND ANDERSON WILL PROVIDE TRANSPORT- OR MOM YANI ERICKSON AT [phone] Addendum: 06/09/19 at 1201 by DAVID SCHMIDT RN CM Amended: Links added.
[2019-06-09] MEDS: SODIUM CHLORIDE 0.9% 1000ML 1,000 ML IV SCH (13:15)
[2019-06-09] MEDS: HEPARIN 25000 UNITS/250 ML D5W 250 ML IV SCH (15:58)
[2019-06-09 16:40] VITALS: BP 117/66
[2019-06-09 20:18] VITALS: BP 113/56
[2019-06-10] VITALS (23 sets, daily range): BP systolic 76–117; BP diastolic 42–76
[2019-06-10 05:21] LABS: INR 1.12 (0.85-1.15); PARTIAL THROMBOPLASTIN TIME 46.3 SEC (26.3-35.5)
[2019-06-10] MEDS ORDERED: LACTATED RINGERS 1000ML 1,000 ML IV ONE (11:24)
[2019-06-10] MEDS ORDERED: BUPIVACAINE/PF 0.5% 30ML VIAL INJ ONE (13:00)
--- NOTE | 2019-06-10 14:15 | NUR ---
REPORT RECEIVED FROM DIOR RN (PACU). PATIENT S/P LEFT CHEST PORT-A-CATH REMOVAL BY DR. WHITE. DRESSING DRY AND INTACT. PATIENT STABLE AT THIS TIME.
--- NOTE | 2019-06-10 19:30 | NUR ---
assessment PATIENT SEEN AND ASSESSED. PT DENIED ANY PAIN AT THIS POINT. PT DENIED ANY CHEST PAIN NOR SOB. PT DENIED ANY NAUSEA NOR VOMITING. ALERT ORIENTED X 4. DRESSING S/P REMOVAL OF PORTACATH C/D/I. INFORMED PATIENT AND EDUCATE PATIENT FOR HEPARIN DRIP INDICATION PURPOSE AND ADSVERSE EFFECT , TO REPORT ANY S'SX OF BLEEDING TO REPORT IT AT ONCE , CHANGES IN STOOL AND URINE ALSO, PT AKNOWLEDGED TO REPORT. NO S/SX OF BLEEDING SO FAR. MONITORED ACCORDINGLY
[2019-06-10] MEDS: HEPARIN SODIUM 5000UNIT/ML 1ML VIAL SQ PRN (20:56)
[2019-06-11 00:30] VITALS: BP 99/58
--- NOTE | 2019-06-11 02:23 | NUR ---
PAGED COPY OPERATOR FOR [facility] REGARDING PAIN MEDICation OF THE PATIENT ACCORDING TO PATIENT PAIN CAME BACK AGAIN AND HE IS REQUESTING MORE STRONGER MEDICATION THAN CODEINE
--- NOTE | 2019-06-11 02:27 | NUR ---
MARAH CALL BACK AND ORDERED NORCO 5 MG Q 4 PRN FOR PAIN 4-6 PRN.
[2019-06-11] MEDS ORDERED: HYDROCODONE/ACETAMINOPHEN 5/325 MG TAB PO PRN (02:30)
[2019-06-11] MEDS ORDERED: HYDROCODONE/ACETAMINOPHEN 5/325 MG TAB ONE (02:34)
--- NOTE | 2019-06-11 02:39 | NUR ---
RECEIVED CALL FROM ANISH COLLINS, PTT 101, PER PROTOCOL HOLD FOR 1 HOUR AND DECREASED RATE BY 2 U/KG/HR.WILL CHECK PTT IN 6 HOUR,
[2019-06-11 03:54] VITALS: BP 105/59
[2019-06-11 04:35] LABS: HEMATOCRIT 26.8 % (42-54); MEAN CORPUSCULAR HEMOGLOBIN 25.5 pg (27.0-33.0); MEAN CORPUSCULAR HGB CONC 31.3 g/dL (32.0-36.0); MEAN CORPUSCULAR VOLUME 81.2 fL (79-99); PLATELET COUNT (AUTO) 301 K/uL (130-400); RED CELL DISTRIBUTION WIDTH 23.2 % (11.0-15.5); WHITE BLOOD COUNT (AUTO) 3.9 K/uL (4.8-10.8)
[2019-06-11 05:08] LABS: CREATININE 0.8 mg/dL (0.5-1.5); POTASSIUM 3.2 mmol/L (3.5-5.1)
[2019-06-11 07:32] VITALS: BP 95/56
[2019-06-11] MEDS ORDERED: LIDOCAINE HCL-MPF 1% 2ML VIAL IV PRN (08:15)
[2019-06-11] MEDS ORDERED: POTASSIUM CHLORIDE 20 MEQ ERTAB PO PRN (08:15)
[2019-06-11] MEDS ORDERED: POTASSIUM CHLORIDE 20 MEQ ERTAB PO SCH (08:15)
[2019-06-11] MEDS ORDERED: POTASSIUM CHLORIDE 10% ELIXIR 20 MEQ/15 ML UDCUP PO PRN (08:15)
[2019-06-11] MEDS ORDERED: POTASSIUM CHLORIDE 20MEQ/100ML 100 ML IV PRN (08:15)
[2019-06-11] MEDS: HEPARIN 25000 UNITS/250 ML D5W 250 ML IV SCH (08:38)
[2019-06-11] MEDS: PANTOPRAZOLE SODIUM 40 MG TABLET.DR PO SCH (09:06)
[2019-06-11 11:17] VITALS: BP 111/71
[2019-06-11] MEDS ORDERED: APIX5TAB PO (12:31)
[2019-06-11] MEDS ORDERED: APIXABAN 5 MG TABLET PO ONE ×2 (15:43→15:45)
--- NOTE | 2019-06-11 15:55 | NUR ---
WOUND POST HANNY CATH REMOVAL INCISION CHECKED . PER ORDER REMOVED DRESSING .NO SIGNS OF INCREASE BLEEDING , STERI STRIPS IN PLACE. NO SIGNS OF INFECTION OBSERVED. REDRESSED WITH NEW GUAZE AND SECURED WITH TAPE .. INSTRUCTED PAITENT O KEEP DRESSING CLEAN AND DRY . DISCHARGE INSTRUCTION PROVIDED TO PATIENT . ALSO EDUCATED ON POSSIBLE SIDE EFECTS WITH BLEEDING WHILE ON ELIQUIS. FOLLOW UP APPT SET FOR PATIENT AND INSTRUCTED TO FOLLOW . PATIENT VERBILIZED UNDERSTANDING
== END 2019-06-11 15:56 | disposition home or self-care (01) | DRG 253 ==
LOC: EDH 11:19 → EDHIP 16:37 → OBSVTOIN 16:37 → 4DH 18:07
PROVIDERS: ADMIT Internal Medicine Critical Care Medicine; ATTEND Internal Medicine Critical Care Medicine
PROC: 05PY03Z Removal of Infusion Device from Upper Vein, Open Approach (ICD-10-PCS; principal; 2019-06-10 12:37)
DX: T82.868A Thrombosis due to vascular prosthetic devices, implants and grafts, initial encounter (principal); L02.213 Cutaneous abscess of chest wall; K29.70 Gastritis, unspecified, without bleeding; Y69 Unspecified misadventure during surgical and medical care; Z85.038 Personal history of other malignant neoplasm of large intestine; Z86.14 Personal history of Methicillin resistant Staphylococcus aureus infection; Z90.49 Acquired absence of other specified parts of digestive tract; Z93.3 Colostomy status; Z79.01 Long term (current) use of anticoagulants; Y92.89 Other specified places as the place of occurrence of the external cause
CPT/HCPCS: 36415; 71045; 76604; 80048; 80053; 82550; 84484; 85025; 85027; 85610; 85651; 85730; 86140; 93005; 93971; 94664; A4606; G0378; J1644; J1650; J3490; J7120

== ENCOUNTER → 2019-09-03 | Outpatient (CLI) | payer OTHER ==
[~2019-09-03] MED LIST changes: -APIX5TAB PO; -CIPR500S5 PO; +IOHEXOL 350 MG/ML 100ML INFUS..BTL IV ONE; -LORA10TA7 PO; -METR-172 PO
== END | disposition home or self-care (01) ==
LOC: RAH 09:00
PROVIDERS: ATTEND Internal Medicine Hematology & Oncology
DX: K76.0 Fatty (change of) liver, not elsewhere classified (principal); C18.4 Malignant neoplasm of transverse colon; Z90.49 Acquired absence of other specified parts of digestive tract
CPT/HCPCS: 71270; 74178; Q9967

== ENCOUNTER 2019-09-11 06:40 | Day surgery (SDC) | payer OTHER ==
[2019-09-11] VITALS (12 sets, daily range): BP systolic 88–109; BP diastolic 50–65
[~2019-09-11] VITALS: Ht 172.7 cm; Wt 90.7 kg
[~2019-09-11 06:40] MED LIST changes: +APIX5TAB PO; -IOHEXOL 350 MG/ML 100ML INFUS..BTL IV ONE; +LORA10TA7 PO
[2019-09-11] MEDS ORDERED: SODIUM CHLORIDE 0.9% 1000ML 1,000 ML IV ONE (06:47)
[2019-09-11] MEDS ORDERED: PROPOFOL 10 MG/ML 20ML VIAL IV ONE ×5 (07:53→09:02)
[2019-09-13] MEDS ORDERED: APIX5TAB PO (17:06)
== END 2019-09-11 10:40 | disposition home or self-care (01) ==
LOC: DAH 06:40 → ENDO 06:40
PROVIDERS: ATTEND Student in an Organized Health Care Education/Training Program
DX: Z08 Encounter for follow-up examination after completed treatment for malignant neoplasm (principal); D12.4 Benign neoplasm of descending colon; E11.9 Type 2 diabetes mellitus without complications; K21.9 Gastro-esophageal reflux disease without esophagitis; Z90.49 Acquired absence of other specified parts of digestive tract; Z93.3 Colostomy status; Z85.038 Personal history of other malignant neoplasm of large intestine; I10 Essential (primary) hypertension; Z11.59 Encounter for screening for other viral diseases
CPT/HCPCS: 45380; 45381; 45385; A4215; A4221; A4222; A4223; A4606; A4615; A4649; A4663; J2704 ×5; J7030; U0003; 36415; 45384

== ENCOUNTER 2019-09-16 09:18 | Inpatient (IN) | payer OTHER ==
[2019-09-13 13:11] LABS: BASOPHILS % (AUTO) 0.1 % (0.0-5.0); EOSINOPHILS % (AUTO) 0.6 % (0.0-8.0); HEMATOCRIT 38.1 % (42-54); LYMPHOCYTES % (AUTO) 15.6 % (21.0-51.0); MEAN CORPUSCULAR HEMOGLOBIN 28.4 pg (27.0-33.0); MEAN CORPUSCULAR VOLUME 88.6 fL (79-99); MONOCYTES % (AUTO) 12.5 % (3.0-13.0); NEUTROPHILS % (AUTO) 70.9 % (40.0-77.0); PLATELET COUNT (AUTO) 296 K/uL (130-400); RED CELL DISTRIBUTION WIDTH 14.4 % (11.0-15.5); WHITE BLOOD COUNT (AUTO) 6.7 K/uL (4.8-10.8)
[2019-09-13 13:25] LABS: INR 0.99 (0.85-1.15); PARTIAL THROMBOPLASTIN TIME 28.5 SEC (26.3-35.5); PROTHROMBIN TIME 10.7 SEC (9.6-11.6)
[2019-09-13 13:28] LABS: ALBUMIN 3.1 g/dL (3.5-5.0); BILIRUBIN,TOTAL 0.4 mg/dL (0.2-1.0); POTASSIUM 4.5 mmol/L (3.5-5.1); TOTAL PROTEIN, SERUM 7.2 g/dL (6.0-8.3)
[2019-09-13 13:42] LABS: APPEARANCE,URINE Clear (CLEAR); BILIRUBIN,URINE Negative (NEGATIVE); COLOR,URINE Dark Yellow (YELLOW); GLUCOSE, URINE (UA) Negative (NEGATIVE); KETONES,URINE Trace mg/dL (NEGATIVE); LEUKOCYTE ESTERASE ,URINE Negative (NEGATIVE); NITRATE,URINE Negative (NEGATIVE); OCCULT BLOOD,URINE Negative (NEGATIVE); PH,URINE 5.5 (5.0-8.0); PROTEIN,URINE Negative (NEGATIVE)
[2019-09-13 14:01] LABS: BACTERIA,URINE None Seen /HPF (None Seen); RBC,URINE 0-1 /HPF (0-1); SQUAMOUS EPITHELIAL CELL,UR 0-2 /HPF (0-2); WBC,URINE 0-1 /HPF (0-1)
[2019-09-13 16:51] VITALS: BP 102/59
[2019-09-14] MEDS: CEFAZOLIN SODIUM 1 GM VIAL IVP SCH (14:00)
[2019-09-15] MEDS: CEFAZOLIN SODIUM 1 GM VIAL IVP SCH (14:00)
[~2019-09-16] VITALS: Ht 182.9 cm; Wt 92.9 kg
[2019-09-16] VITALS (30 sets, daily range): BP systolic 92–148; BP diastolic 40–89
[~2019-09-16 09:18] MED LIST changes: -LORA10TA7 PO
[2019-09-16] MEDS ORDERED: LACTATED RINGERS 1000ML 1,000 ML IV ONE (10:06)
[2019-09-16] MEDS: CEFAZOLIN SODIUM 1 GM VIAL IVP SCH ×4 (12:00→19:50)
[2019-09-16] MEDS ORDERED: SUCCINYLCHOLINE CHLORIDE 20 MG/ML 10 ML VIAL ONE (12:04)
[2019-09-16] MEDS ORDERED: LIDOCAINE PF 2% 5ML ABBOJECT ONE (12:04)
[2019-09-16] MEDS ORDERED: MIDAZOLAM HCL 1 MG/ML 2ML VIAL ONE (12:04)
[2019-09-16] MEDS ORDERED: PROPOFOL 10 MG/ML 20ML VIAL IV ONE (12:04)
[2019-09-16] MEDS ORDERED: FENTANYL CITRATE PF 50 MCG/1 ML 2ML VIAL ONE (12:07)
[2019-09-16] MEDS ORDERED: ROCURONIUM 10MG/1ML SYR 10 MG/ML ML ONE (12:08)
[2019-09-16] MEDS ORDERED: EPHEDRINE SULFATE 50 MG/ML AMPULE ONE (12:47)
[2019-09-16] MEDS ORDERED: ONDANSETRON HCL 4 MG/2 ML VIAL ONE (13:45)
[2019-09-16] MEDS ORDERED: NEOSTIGMINE 5MG/5ML SYR IV ONE (13:45)
[2019-09-16] MEDS ORDERED: GLYCOPYRROLATE 1 MG/5 ML SYRINGE ONE (13:45)
[2019-09-16] MEDS ORDERED: MORPHINE SULFATE 2 MG/ML 1ML SYG ONE (14:34)
[2019-09-16] MEDS ORDERED: MORPHINE SULFATE 4 MG/1ML SYG ONE (16:07)
--- NOTE | 2019-09-16 16:12 | NUR ---
4mg of morphine given slow IVP for abdominal pain
--- NOTE | 2019-09-16 16:30 | NUR ---
REPORT RECEIVED FROM KEVIN LUEVANO. PATIENT S/P ILEOSTOMY REVERSAL BY DR BARTON UNDER GENERAL ANESTHESIA. ABD DRESSING DRY AND INTACT. NO DRAIN NOTED. PATIENT MAY START CLEAR LIQUID DIET. PATIENT STABLE AT THIS TIME.
[2019-09-16] MEDS ORDERED: ACETAMINOPHEN-CODEINE 300/30MG TAB PO PRN (17:15)
[2019-09-16] MEDS: MORPHINE SULFATE 4 MG/1ML SYG IVP PRN ×2 (18:24→23:19)
[2019-09-16] MEDS: SODIUM CHLORIDE 0.9% 1000ML 1,000 ML IV SCH (19:41)
[2019-09-17] MEDS: SODIUM CHLORIDE 0.9% 1000ML 1,000 ML IV SCH (02:20)
[2019-09-17 04:00] VITALS: BP 95/57
[2019-09-17] MEDS: MORPHINE SULFATE 4 MG/1ML SYG IVP PRN ×2 (04:07→22:27)
[2019-09-17 05:40] LABS: HEMATOCRIT 33.7 % (42-54); MEAN CORPUSCULAR HEMOGLOBIN 28.4 pg (27.0-33.0); MEAN CORPUSCULAR HGB CONC 32.6 g/dL (32.0-36.0); MEAN CORPUSCULAR VOLUME 87.1 fL (79-99); RED BLOOD CELL COUNT(AUTO) 3.87 MIL/uL (4.50-6.20); RED CELL DISTRIBUTION WIDTH 13.9 % (11.0-15.5); WHITE BLOOD COUNT (AUTO) 7.8 K/uL (4.8-10.8)
[2019-09-17 06:20] LABS: ALBUMIN 2.2 g/dL (3.5-5.0); BILIRUBIN,TOTAL 0.3 mg/dL (0.2-1.0); CREATININE 0.7 mg/dL (0.5-1.5); POTASSIUM 3.8 mmol/L (3.5-5.1); TOTAL PROTEIN, SERUM 5.5 g/dL (6.0-8.3)
[2019-09-17 08:56] VITALS: BP 105/59
[2019-09-17 12:01] VITALS: BP 98/60
[2019-09-17] MEDS: CEFAZOLIN SODIUM 1 GM VIAL IVP SCH (14:47)
[2019-09-17 16:47] VITALS: BP 101/52
--- NOTE | 2019-09-17 16:53 | NUR ---
JUSTO NOTE/IA MEET WITH PATIENT IN ROOM. PER PATIENT INDEPENDENT WITH ADLS, LIVES ALONE, NO USE OF HOME HEALTH OR DME, AND FEELS SAFE TO RETURN HOME ONCE DISCHARGED FROM HOSPITAL. Addendum: 09/17/19 at 1654 by VALDO FOFANA RN CM Amended: Links added.
[2019-09-17 19:49] VITALS: BP 110/67
[2019-09-17 23:19] VITALS: BP 99/53
[2019-09-18 03:51] VITALS: BP 97/66
[2019-09-18] MEDS: MORPHINE SULFATE 4 MG/1ML SYG IVP PRN (04:13)
[2019-09-18 08:00] VITALS: BP 107/68
[2019-09-18] MEDS: SODIUM CHLORIDE 0.9% 1000ML 1,000 ML IV SCH (09:15)
[2019-09-18 11:15] VITALS: BP 112/65
== END 2019-09-18 19:15 | disposition home or self-care (01) | DRG 331 ==
LOC: DAHIP 09:18 → 3DH 16:05
PROVIDERS: ADMIT Student in an Organized Health Care Education/Training Program; ATTEND Student in an Organized Health Care Education/Training Program
PROC: 0DBB0ZZ Excision of Ileum, Open Approach (ICD-10-PCS; principal; 2019-09-16 12:34)
DX: Z43.2 Encounter for attention to ileostomy (principal); Z79.01 Long term (current) use of anticoagulants; K66.0 Peritoneal adhesions (postprocedural) (postinfection); Z20.828 Contact with and (suspected) exposure to other viral communicable diseases
CPT/HCPCS: 36415; 80053; 81001; 85025; 85027; 85610; 85730; G0378; J0330; J0690; J2001; J2250; J2270; J2405; J2704; J2710; J3010; J3490; J7120; U0003

== ENCOUNTER 2019-10-11 06:11 | Day surgery (SDC) | payer OTHER ==
[2019-10-11] VITALS (8 sets, daily range): BP systolic 85–93; BP diastolic 42–60
[~2019-10-11] VITALS: Ht 182.9 cm; Wt 88.5 kg
[~2019-10-11 06:11] MED LIST changes: +FENTANYL 2500MCG+NS 250ML 250 ML IV ONE
[2019-10-11] MEDS ORDERED: SODIUM CHLORIDE 0.9% 1000ML 1,000 ML IV ONE (06:22)
[2019-10-11] MEDS ORDERED: LIDOCAINE HCL 1% 20 ML VIAL ONE (07:38)
[2019-10-11] MEDS ORDERED: MIDAZOLAM HCL 1 MG/ML 2ML VIAL ONE (07:38)
[2019-10-11] MEDS ORDERED: PROPOFOL 10 MG/ML 20ML VIAL IV ONE (07:38)
== END 2019-10-11 08:55 | disposition home or self-care (01) ==
LOC: DAH 06:11 → ENDO 06:11
PROVIDERS: ATTEND Internal Medicine Gastroenterology
DX: Z08 Encounter for follow-up examination after completed treatment for malignant neoplasm (principal); D12.4 Benign neoplasm of descending colon; K76.0 Fatty (change of) liver, not elsewhere classified; C18.3 Malignant neoplasm of hepatic flexure; Z86.010 Personal history of colon polyps; Z85.038 Personal history of other malignant neoplasm of large intestine; Z90.49 Acquired absence of other specified parts of digestive tract; Z98.0 Intestinal bypass and anastomosis status; Z11.59 Encounter for screening for other viral diseases
CPT/HCPCS: 36415; 45378; A4215; A4221; A4222; A4223; A4606; A4620; A4657; A4663; J2250; J2704; J3010; J7030; U0003

== ENCOUNTER 2019-10-31 06:04 | Day surgery (SDC) | payer OTHER ==
[~2019-10-31] VITALS: Ht 182.9 cm; Wt 87.1 kg
[~2019-10-31 06:04] MED LIST changes: -FENTANYL 2500MCG+NS 250ML 250 ML IV ONE
[2019-10-31] MEDS ORDERED: SODIUM CHLORIDE 0.9% 1000ML 1,000 ML IV ONE (06:19)
[2019-10-31] MEDS ORDERED: PROPOFOL 10 MG/ML 20ML VIAL IV ONE (06:27)
[2019-10-31] MEDS ORDERED: LIDOCAINE HCL 1% 20 ML VIAL ONE (06:28)
[2019-10-31 06:46] VITALS: BP 98/56
[2019-10-31 07:25] VITALS: BP 91/49
[2019-10-31 07:30] VITALS: BP 98/58
[2019-10-31 07:35] VITALS: BP 96/62
== END 2019-10-31 08:06 | disposition home or self-care (01) ==
LOC: ENDO 06:04 → DAH 06:04 → ENDO 08:06
PROVIDERS: ATTEND Internal Medicine Gastroenterology
DX: Z08 Encounter for follow-up examination after completed treatment for malignant neoplasm (principal); K29.80 Duodenitis without bleeding; K57.32 Diverticulitis of large intestine without perforation or abscess without bleeding; K57.30 Diverticulosis of large intestine without perforation or abscess without bleeding; K56.699 Other intestinal obstruction unspecified as to partial versus complete obstruction; D12.4 Benign neoplasm of descending colon; K64.8 Other hemorrhoids; Z86.010 Personal history of colon polyps; Z85.038 Personal history of other malignant neoplasm of large intestine; Z98.0 Intestinal bypass and anastomosis status; Z79.899 Other long term (current) drug therapy; Z79.01 Long term (current) use of anticoagulants; Z11.59 Encounter for screening for other viral diseases
CPT/HCPCS: 45380; 45385; C9803; J2704; J7030; U0003

== ENCOUNTER 2019-11-08 15:23 | Inpatient (IN) | payer OTHER ==
[~2019-11-08] VITALS: Ht 182.9 cm; Wt 83.6 kg
[2019-11-08 16:00] LABS: BASOPHILS % (AUTO) 0.2 % (0.0-5.0); EOSINOPHILS % (AUTO) 1.2 % (0.0-8.0); HEMATOCRIT 29.5 % (42-54); LYMPHOCYTES % (AUTO) 11.9 % (21.0-51.0); MEAN CORPUSCULAR HEMOGLOBIN 28.3 pg (27.0-33.0); MEAN CORPUSCULAR HGB CONC 31.9 g/dL (32.0-36.0); MEAN CORPUSCULAR VOLUME 88.9 fL (79-99); NEUTROPHILS % (AUTO) 77.5 % (40.0-77.0); PLATELET COUNT (AUTO) 335 K/uL (130-400); RED BLOOD CELL COUNT(AUTO) 3.32 MIL/uL (4.50-6.20); RED CELL DISTRIBUTION WIDTH 19.5 % (11.0-15.5); WHITE BLOOD COUNT (AUTO) 8.5 K/uL (4.8-10.8)
[2019-11-08] MEDS ORDERED: SODIUM CHLORIDE 0.9% 1000ML 1,000 ML IV ONE (16:04)
[2019-11-08 16:10] LABS: CREATININE 0.9 mg/dL (0.5-1.5); POTASSIUM 3.8 mmol/L (3.5-5.1)
[2019-11-08 16:15] LABS: ALBUMIN 2.8 g/dL (3.5-5.0); BILIRUBIN,TOTAL 0.4 mg/dL (0.2-1.0); TOTAL PROTEIN, SERUM 7.4 g/dL (6.0-8.3)
[2019-11-08 16:34] LABS: APPEARANCE,URINE Clear (CLEAR); BILIRUBIN,URINE Negative (NEGATIVE); COLOR,URINE Dark Yellow (YELLOW); GLUCOSE, URINE (UA) Negative (NEGATIVE); KETONES,URINE Negative (NEGATIVE); LEUKOCYTE ESTERASE ,URINE Negative (NEGATIVE); NITRATE,URINE Negative (NEGATIVE); OCCULT BLOOD,URINE Negative (NEGATIVE); PH,URINE 5.5 (5.0-8.0); PROTEIN,URINE Negative (NEGATIVE)
[2019-11-08] MEDS ORDERED: IOHEXOL-350 75 ML VIAL IV ONE (19:25)
[2019-11-08] MEDS ORDERED: ZOSYN 3.375GM+NS 50ML 50 ML IV ONE (20:32)
[2019-11-08] MEDS ORDERED: COMPOUND IV REFRIGERATED 1 EACH IVSOLN MISC PRN (21:30)
[2019-11-08] MEDS ORDERED: VANCOMYCIN PROTOCOL PER PHARMACY IV SCH (21:30)
[2019-11-08] MEDS ORDERED: VANCOMYCIN PROTOCOL PER PHARMACY IV PRN (22:00)
[2019-11-08] MEDS ORDERED: ONDANSETRON HCL 4 MG/2 ML VIAL IV PRN (22:00)
[2019-11-08] MEDS ORDERED: ACETAMINOPHEN 650 MG SUPPOSITORY RC PRN (22:15)
[2019-11-08 22:20] VITALS: BP 98/55
[2019-11-08] MEDS: SODIUM CHLORIDE 0.9% 1000ML 1,000 ML IV SCH (22:56)
[2019-11-08] MEDS: VANCOMYCIN 1.25 GM in SODIUM CHLORIDE 0.9% 250 ML IV SCH (22:57)
[2019-11-08] MEDS: HYDROMORPHONE HCL 0.5 MG/0.5 ML ML IV PRN (23:14)
[2019-11-09] VITALS (7 sets, daily range): BP systolic 91–98; BP diastolic 48–60
[2019-11-09] MEDS ORDERED: ZOSYN 3.375GM+NS 50ML 50 ML IV SCH (05:00)
[2019-11-09] MEDS: ZOSYN 3.375GM+NS 50ML 50 ML IV SCH ×3 (05:15→20:45)
[2019-11-09] MEDS: HYDROMORPHONE HCL 0.5 MG/0.5 ML ML IV PRN (05:29)
[2019-11-09] MEDS: SODIUM CHLORIDE 0.9% 1000ML 1,000 ML IV SCH ×2 (08:24→17:42)
[2019-11-09] MEDS ORDERED: FAMOTIDINE/PF 20 MG/2 ML VIAL IV SCH (09:00)
[2019-11-09] MEDS: VANCOMYCIN 1.25 GM in SODIUM CHLORIDE 0.9% 250 ML IV SCH (11:15)
[2019-11-09 11:24] LABS: AMPHET/METH SCREEN,URINE NEGATIVE (NEGATIVE); BARBITURATE SCREEN, URINE NEGATIVE (NEGATIVE); BENZODIAZEPINES SCREEN,URINE NEGATIVE (NEGATIVE); CANNABINOID SCREEN,URINE NEGATIVE (NEGATIVE); COCAINE SCREEN,URINE NEGATIVE (NEGATIVE); OPIATE SCREEN,URINE NEGATIVE (NEGATIVE); PHENCYCLIDINE SCREEN,URINE NEGATIVE (NEGATIVE)
--- NOTE | 2019-11-09 11:31 | NUR ---
TEMP PT HAD A TEMP 102.7 RECTAL SUPPOSITORY WAS GIVEN, WILL CONTINUE TO MONITOR
--- NOTE | 2019-11-09 12:31 | NUR ---
TEMP PT SLEEPING COMFORTABLY TEMP 99.3 FOREHEAD
--- NOTE | 2019-11-09 16:30 | NUR ---
DR. BARTON PT. SEEN BY DR. BARTON AT BEDSIDE, ORDERS, TO CHANGE DIET TO CLEAR LIQUIDS, CULTURE WOUND, OSTOMY BAG CHANGED, CONTINUE ANABIOTICS.
--- NOTE | 2019-11-09 19:45 | NUR ---
INITIAL SW spoke with patient. He states he lives alone and has no home services or DME. Patient is able to complete ADL's independently and drives. 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 PCP is Dr. Jhonatan Sauceda. Pharmacy is [facility] in [place]. DCP is home. Addendum: 11/09/19 at 1946 by MARA AYERS SS Amended: Links added.
[2019-11-09] MEDS: ACETAMINOPHEN-CODEINE 300/30MG TAB PO PRN (20:46)
--- NOTE | 2019-11-09 20:46 | NUR ---
MEDS SHIFT ASSESSMENT DONE, PLEASE REFER TO CHART. PT CLAIMS OF ABDOMINAL PAINS. DUE MEDS ADMINISTERED. TYLENOL #3 1 TAB PO GIVEN FOR PAINS. KEPT RESTED AND COMFORTABLE IN BED. CALL LIGHT WITHIN REACH. WILL MONITOR PT. Addendum: 11/09/19 at 2259 by LIDIA MORGAN RN RN Amended: Links added.
--- NOTE | 2019-11-10 01:52 | NUR ---
ROUNDS PT FAIRLY ASLEEP. NO DISTRESS NOTED. KEPT RESTED AND COMFORTABLE. CALL LIGHT WITHIN REACH. WILL MONITOR PT.
[2019-11-10] MEDS: SODIUM CHLORIDE 0.9% 1000ML 1,000 ML IV SCH (03:28)
[2019-11-10] MEDS: ZOSYN 3.375GM+NS 50ML 50 ML IV SCH ×3 (03:28→19:52)
[2019-11-10 03:50] VITALS: BP 92/56
[2019-11-10 05:00] LABS: BASOPHILS % (AUTO) 0.2 % (0.0-5.0); EOSINOPHILS % (AUTO) 2.9 % (0.0-8.0); HEMATOCRIT 27.8 % (42-54); LYMPHOCYTES % (AUTO) 21.3 % (21.0-51.0); MEAN CORPUSCULAR HEMOGLOBIN 27.8 pg (27.0-33.0); MEAN CORPUSCULAR HGB CONC 31.7 g/dL (32.0-36.0); MONOCYTES % (AUTO) 14.2 % (3.0-13.0); PLATELET COUNT (AUTO) 260 K/uL (130-400); RED BLOOD CELL COUNT(AUTO) 3.16 MIL/uL (4.50-6.20); RED CELL DISTRIBUTION WIDTH 18.9 % (11.0-15.5); WHITE BLOOD COUNT (AUTO) 4.5 K/uL (4.8-10.8)
[2019-11-10 05:14] LABS: ALBUMIN 2.3 g/dL (3.5-5.0); BILIRUBIN,TOTAL 0.5 mg/dL (0.2-1.0); CREATININE 0.8 mg/dL (0.5-1.5); MAGNESIUM 2.3 mg/dL (1.80-2.40); PHOSPHORUS 3.1 mg/dL (2.5-4.9); POTASSIUM 3.2 mmol/L (3.5-5.1); TOTAL PROTEIN, SERUM 6.3 g/dL (6.0-8.3)
--- NOTE | 2019-11-10 05:40 | NUR ---
ROUNDS PT SLEPT AT INTERVALS DURING THE SHIFT. NO CONCERNS VERBALIZED AT THIS TIME. FOR MORE CARE.
[2019-11-10 08:10] VITALS: BP 99/59
[2019-11-10] MEDS: FLUCONAZOLE 400 MG/NS 200 ML 200 ML IV SCH (08:46)
[2019-11-10 11:46] VITALS: BP 115/67
[2019-11-10] MEDS ORDERED: POTASSIUM CHLORIDE 10% ELIXIR 20 MEQ/15 ML UDCUP PO PRN (14:45)
[2019-11-10] MEDS ORDERED: LIDOCAINE HCL-MPF 1% 2ML VIAL IV PRN (14:45)
[2019-11-10] MEDS ORDERED: POTASSIUM CHLORIDE 20MEQ/100ML 100 ML IV PRN (14:45)
[2019-11-10] MEDS ORDERED: MAGNESIUM 2GM PREMIX 50ML 50 ML IV PRN (14:45)
[2019-11-10] MEDS: POTASSIUM CHLORIDE 20 MEQ ERTAB PO PRN ×2 (15:00→17:36)
[2019-11-10 16:55] VITALS: BP 108/66
--- NOTE | 2019-11-10 19:45 | NUR ---
MEDS SHIFT ASSESSMENT DONE, PLEASE REFER TO CHART. DUE MEDS ADMINISTERED, TOLERATED WELL. OSTOMY BAG USED DRAINAGE BAG FOR WOUND IS LEAKING. CHANGED BAG AND SECURED WITH TAPE. KEPT COMFORTABLE IN BED. CALL LIGHT WITHIN REACH. Addendum: 11/11/19 at 0253 by LIDIA MORGAN RN RN Amended: Links added.
[2019-11-10 20:00] VITALS: BP 105/64
[2019-11-10] MEDS: ACETAMINOPHEN-CODEINE 300/30MG TAB PO PRN (22:15)
--- NOTE | 2019-11-10 22:15 | NUR ---
PAIN PT CALLS FOR PAIN MEDICATION, CLAIMS OF PAINS TO THE ABDOMEN. MEDICATED WITH TYLENOL #3 1 TAB PO. SOILED GOWN AND LINEN CHANGED. ENCOURAGED TO REST AND SLEEP. CALL LIGHT WITHIN REACH. WILL RE-ASSESS PT.
[2019-11-11] VITALS: BP 101/62
--- NOTE | 2019-11-11 02:00 | NUR ---
ROUNDS PT RESTING WELL, FAIRLY ASLEEP. NO DISTRESS NOTED. KEPT UNDISTURBED FOR NOW. WILL CONTINUE TO MONITOR.
[2019-11-11 03:42] VITALS: BP 113/64
[2019-11-11] MEDS: ZOSYN 3.375GM+NS 50ML 50 ML IV SCH ×3 (04:39→20:25)
[2019-11-11] MEDS: POTASSIUM CHLORIDE 20 MEQ ERTAB PO PRN ×3 (04:39→17:50)
--- NOTE | 2019-11-11 04:40 | NUR ---
MEDS PT AWAKENED WHEN SHIFT SUPERINTENDENT ENTERED ROOM. DUE MEDS ADMINISTERED, TOLERATED WELL. KEPT RESTED AND COMFORTABLE. ENCOURAGED TO GO BACK TO SLEEP.
[2019-11-11 06:20] LABS: BASOPHILS % (AUTO) 0.4 % (0.0-5.0); HEMATOCRIT 28.7 % (42-54); LYMPHOCYTES % (AUTO) 16.4 % (21.0-51.0); MEAN CORPUSCULAR HEMOGLOBIN 28.1 pg (27.0-33.0); MEAN CORPUSCULAR HGB CONC 32.4 g/dL (32.0-36.0); MEAN CORPUSCULAR VOLUME 86.7 fL (79-99); MONOCYTES % (AUTO) 13.2 % (3.0-13.0); NEUTROPHILS % (AUTO) 67.8 % (40.0-77.0); PLATELET COUNT (AUTO) 262 K/uL (130-400); RED BLOOD CELL COUNT(AUTO) 3.31 MIL/uL (4.50-6.20); RED CELL DISTRIBUTION WIDTH 18.6 % (11.0-15.5); WHITE BLOOD COUNT (AUTO) 5.6 K/uL (4.8-10.8)
[2019-11-11 06:46] LABS: ALBUMIN 2.3 g/dL (3.5-5.0); BILIRUBIN,TOTAL 0.3 mg/dL (0.2-1.0); CREATININE 0.8 mg/dL (0.5-1.5); MAGNESIUM 2.1 mg/dL (1.80-2.40); PHOSPHORUS 3.1 mg/dL (2.5-4.9); POTASSIUM 3.4 mmol/L (3.5-5.1); TOTAL PROTEIN, SERUM 6.3 g/dL (6.0-8.3)
[2019-11-11 08:00] VITALS: BP 105/71
[2019-11-11] MEDS: FLUCONAZOLE 400 MG/NS 200 ML 200 ML IV SCH (10:19)
[2019-11-11 11:00] VITALS: BP 106/70
[2019-11-11 16:00] VITALS: BP 103/71
[2019-11-11 20:23] VITALS: BP 114/72
[2019-11-11] MEDS: ACETAMINOPHEN-CODEINE 300/30MG TAB PO PRN (20:26)
--- NOTE | 2019-11-11 20:35 | NUR ---
HOLTER TECHNICIAN PAGED PT CONCERNED ABOUT NOT TAKING HIS ELIQUIS OR ANY BLOOD THINNER SINCE ADMISSION. PT REPORTS THAT HE HAS SEVERAL DVTS IN HIS LUE DIAGNOSED SINCE . SPOKE WITH JERAMIE SKELTON WHO ORDERED TO HAVE AN ULTRASOUND OF THE UPPER EXTREMITY COMPLETED TO R/O DVTS. NO BLOOD THINNER ORDER WAS GIVEN AT THIS TIME.
[2019-11-12] VITALS (7 sets, daily range): BP systolic 97–110; BP diastolic 63–73
[2019-11-12] MEDS: ZOSYN 3.375GM+NS 50ML 50 ML IV SCH ×3 (05:03→22:12)
[2019-11-12] MEDS: POTASSIUM CHLORIDE 20 MEQ ERTAB PO PRN ×3 (05:29→17:42)
--- NOTE | 2019-11-12 08:00 | NUR ---
AM ROUNDS, NO DISTRESS.
[2019-11-12] MEDS: FLUCONAZOLE 400 MG/NS 200 ML 200 ML IV SCH (08:42)
--- NOTE | 2019-11-12 10:00 | NUR ---
CHECKED COLOSTOMY BAG AND DRAINAGE LOOKS PURULENT, OFFERED TO EMPTY AND STATES HE WILL DO IT
--- NOTE | 2019-11-12 12:00 | NUR ---
COVERED POTASSIUM OF 3.4
[2019-11-12] MEDS: ENOXAPARIN SODIUM 80 MG/0.8 ML SQ SCH (20:27)
--- NOTE | 2019-11-12 20:30 | NUR ---
MEDS SHIFT ASSESSMENT DONE, PLEASE REFER TO CHART. DUE MEDS ADMINISTERED, TOLERATED WELL. KEPT RESTED AND COMFORTABLE. CALL LIGHT WITHIN REACH. Addendum: 11/12/19 at 2204 by LIDIA MORGAN RN RN Amended: Links added.
[2019-11-12] MEDS: ACETAMINOPHEN-CODEINE 300/30MG TAB PO PRN (22:19)
--- NOTE | 2019-11-12 22:19 | NUR ---
PAIN PT ASKS FOR PAIN MEDS, CLAIMS OF ABDOMINAL PAINS. MEDICATED WITH TYLENOL #3 1 TAB PO. KEPT RESTED AND COMFORTABLE. CALL LIGHT WITHIN REACH. WILL RE-ASSESS PT.
--- NOTE | 2019-11-13 02:00 | NUR ---
ROUNDS PT RESTING WELL, FAIRLY ASLEEP. NO DISTRESS NOTED. KEPT RESTED AND COMFORTABLE. CALL LIGHT WITHIN REACH. WILL MONITOR.
[2019-11-13 03:00] VITALS: BP 98/60
[2019-11-13] MEDS: ZOSYN 3.375GM+NS 50ML 50 ML IV SCH (04:39)
--- NOTE | 2019-11-13 05:34 | NUR ---
ROUNDS PT RESTING WELL, SLEPT AT LONG INTERVALS DURING THE SHIFT. NO CONCERNS VERBALIZED. FOR MORE CARE.
[2019-11-13 05:47] LABS: HEMATOCRIT 33.4 % (42-54); MEAN CORPUSCULAR HEMOGLOBIN 28.5 pg (27.0-33.0); MEAN CORPUSCULAR HGB CONC 32.3 g/dL (32.0-36.0); MEAN CORPUSCULAR VOLUME 88.1 fL (79-99); RED BLOOD CELL COUNT(AUTO) 3.79 MIL/uL (4.50-6.20); RED CELL DISTRIBUTION WIDTH 19.2 % (11.0-15.5); WHITE BLOOD COUNT (AUTO) 6.5 K/uL (4.8-10.8)
[2019-11-13 06:10] LABS: ALBUMIN 2.8 g/dL (3.5-5.0); BILIRUBIN,TOTAL 0.4 mg/dL (0.2-1.0); CREATININE 0.8 mg/dL (0.5-1.5); POTASSIUM 3.7 mmol/L (3.5-5.1); TOTAL PROTEIN, SERUM 7.6 g/dL (6.0-8.3)
[2019-11-13 07:30] VITALS: BP 92/57
--- NOTE | 2019-11-13 09:20 | NUR ---
VASYL BOBO spoke with pt ,discussed no growth from wounds cultures ,will continue same diet ,Dr Sandoval will see patient today
[2019-11-13] MEDS: FLUCONAZOLE 400 MG/NS 200 ML 200 ML IV SCH (10:32)
[2019-11-13] MEDS: ENOXAPARIN SODIUM 80 MG/0.8 ML SQ SCH (10:33)
[2019-11-13] MEDS: ACETAMINOPHEN-CODEINE 300/30MG TAB PO PRN (10:35)
[2019-11-13 11:00] VITALS: BP 109/59
[2019-11-13] MEDS ORDERED: AMOX-429 PO (15:11)
[2019-11-13] MEDS ORDERED: FLUC200T PO (15:11)
--- NOTE | 2019-11-13 15:51 | NUR ---
CM NOTE/DCP HOME NEW REFERRAL FOR [facility]. PER INSURANCE, DOES NOT HAVE [facility] BENEFITS. PER LUCIAN BROWN, PRIMARY MD/RAG PRODUCTION WORKER HAD TALKS WITH DR. CORDOVA, PATIENT OK TO HAVE PO ABT, NO LONGER NEEDING [facility]. DISCHARGE ORDER GIVEN. PATIENT TO GO HOME TODAY.
[2019-11-13 15:53] VITALS: BP 90/58
== END 2019-11-13 16:55 | disposition home or self-care (01) | DRG 393 ==
LOC: EDH 15:23 → EDHIP 21:00 → 3DH 21:31
PROVIDERS: ADMIT Internal Medicine Critical Care Medicine; ATTEND Internal Medicine Critical Care Medicine
DX: K63.2 Fistula of intestine (principal); K65.1 Peritoneal abscess; R19.09 Other intra-abdominal and pelvic swelling, mass and lump; K29.70 Gastritis, unspecified, without bleeding; D64.9 Anemia, unspecified; E87.6 Hypokalemia; R53.81 Other malaise; Z20.828 Contact with and (suspected) exposure to other viral communicable diseases; E66.9 Obesity, unspecified; Z68.22 Body mass index [BMI] 22.0-22.9, adult; Z79.2 Long term (current) use of antibiotics; Z90.49 Acquired absence of other specified parts of digestive tract; Z85.038 Personal history of other malignant neoplasm of large intestine
CPT/HCPCS: 36415; 71045; 74177; 80053; 80305; 81003; 82550; 82948; 83605; 83690; 83735; 84100; 85025; 85027; 87040; 87076; 87088; 87426; 93971; G0378; J1170; J1450; J1650; J2543; J3370; J7030; J7050; Q9967

== ENCOUNTER 2019-12-12 16:45 | Emergency (ER) | payer OTHER ==
[~2019-12-12 16:45] MED LIST changes: +AMOX-429 PO; +FLUC200T PO
[2019-12-12] MEDS ORDERED: SODIUM CHLORIDE 0.9% 500ML 500 ML IV ONE (16:56)
[2019-12-12] MEDS ORDERED: IOHEXOL-350 75 ML VIAL IV ONE (17:01)
[2019-12-12 17:26] LABS: BASOPHILS % (AUTO) 0.3 % (0.0-5.0); EOSINOPHILS % (AUTO) 2.2 % (0.0-8.0); HEMATOCRIT 31.9 % (42-54); LYMPHOCYTES % (AUTO) 18.8 % (21.0-51.0); MEAN CORPUSCULAR HEMOGLOBIN 29.1 pg (27.0-33.0); MEAN CORPUSCULAR VOLUME 91.1 fL (79-99); MONOCYTES % (AUTO) 12.7 % (3.0-13.0); NEUTROPHILS % (AUTO) 65.7 % (40.0-77.0); PLATELET COUNT (AUTO) 228 K/uL (130-400); RED CELL DISTRIBUTION WIDTH 16.5 % (11.0-15.5); WHITE BLOOD COUNT (AUTO) 6.4 K/uL (4.8-10.8)
[2019-12-12 17:36] LABS: INR 1.01 (0.85-1.15); PARTIAL THROMBOPLASTIN TIME 28.2 SEC (26.3-35.5); PROTHROMBIN TIME 10.9 SEC (9.6-11.6)
[2019-12-12 17:38] LABS: CREATININE 0.9 mg/dL (0.5-1.5); POTASSIUM 3.5 mmol/L (3.5-5.1)
[2019-12-12 17:42] LABS: ALBUMIN 3.3 g/dL (3.5-5.0); BILIRUBIN,TOTAL 0.2 mg/dL (0.2-1.0); TOTAL PROTEIN, SERUM 7.2 g/dL (6.0-8.3)
== END 2019-12-12 18:52 | disposition home or self-care (01) ==
LOC: EDH 16:45
DX: T81.40XA Infection following a procedure, unspecified, initial encounter (principal)
CPT/HCPCS: 36415; 74177; 80053; 83605; 85025; 85610; 85730; 96360; 99285; J7040; Q9967

== ENCOUNTER → 2020-01-20 | Outpatient (CLI) | payer OTHER ==
[~2020-01-20] MED LIST changes: +LIDOCAINE HCL 2% JELLY 5 ML TP ONE
== END | disposition home or self-care (01) ==
LOC: WHH 11:00
PROVIDERS: ATTEND Family Medicine
DX: K94.09 Other complications of colostomy (principal); K91.89 Other postprocedural complications and disorders of digestive system; Z85.060 Personal history of malignant carcinoid tumor of small intestine; Y83.8 Other surgical procedures as the cause of abnormal reaction of the patient, or of later complication, without mention of misadventure at the time of the procedure; Y92.238 Other place in hospital as the place of occurrence of the external cause
CPT/HCPCS: 87070; 87077 ×2; 87186 ×2; 99215; A6197; A6212

== ENCOUNTER → 2020-01-24 | Outpatient (CLI) | payer OTHER ==
[~2020-01-24] MED LIST changes: -LIDOCAINE HCL 2% JELLY 5 ML TP ONE
== END | disposition home or self-care (01) ==
LOC: RAH 10:03
PROVIDERS: ATTEND Family Medicine
DX: K91.89 Other postprocedural complications and disorders of digestive system (principal); Z93.3 Colostomy status; R59.0 Localized enlarged lymph nodes
CPT/HCPCS: 74176

== ENCOUNTER 2020-03-02 09:45 | Day surgery (SDC) | payer OTHER ==
[2020-02-28 14:47] LABS: POTASSIUM 3.8 mmol/L (3.5-5.1)
[2020-02-28 14:49] LABS: INR 1.13 (0.85-1.15); PARTIAL THROMBOPLASTIN TIME 30.9 SEC (26.3-35.5); PROTHROMBIN TIME 12.1 SEC (9.6-11.6)
[2020-02-28 14:52] LABS: BASOPHILS % (AUTO) 0.6 % (0.0-5.0); EOSINOPHILS % (AUTO) 0.6 % (0.0-8.0); HEMATOCRIT 28.2 % (42-54); LYMPHOCYTES % (AUTO) 58.1 % (21.0-51.0); MEAN CORPUSCULAR HEMOGLOBIN 25.4 pg (27.0-33.0); MEAN CORPUSCULAR HGB CONC 30.9 g/dL (32.0-36.0); MEAN CORPUSCULAR VOLUME 82.2 fL (79-99); MONOCYTES % (AUTO) 7.2 % (3.0-13.0); NEUTROPHILS % (AUTO) 33.2 % (40.0-77.0); PLATELET COUNT (AUTO) 273 K/uL (130-400); RED BLOOD CELL COUNT(AUTO) 3.43 MIL/uL (4.50-6.20); WHITE BLOOD COUNT (AUTO) 7.8 K/uL (4.8-10.8)
[2020-03-02] MEDS ORDERED: IOHEXOL-350 50ML VIAL IV ONE (10:56)
== END 2020-03-02 11:56 | disposition home or self-care (01) ==
LOC: DAH 09:45
PROVIDERS: ATTEND Surgery
DX: K63.2 Fistula of intestine (principal); E11.9 Type 2 diabetes mellitus without complications; K21.9 Gastro-esophageal reflux disease without esophagitis; Z87.19 Personal history of other diseases of the digestive system; Z79.01 Long term (current) use of anticoagulants; Z90.49 Acquired absence of other specified parts of digestive tract
CPT/HCPCS: 20501; 36415; 74176; 76080; 80048; 85025; 85610; 85730; Q9967

== ENCOUNTER 2020-03-06 09:25 | Inpatient (IN) | payer OTHER ==
[~2020-03-06] VITALS: Ht 182.9 cm; Wt 90.1 kg
[~2020-03-06 09:25] MED LIST changes: -AMOX-429 PO; -FLUC200T PO
[2020-03-09 14:35] VITALS: BP 104/62
[2020-03-09 15:01] LABS: BASOPHILS % (AUTO) 0.3 % (0.0-5.0); EOSINOPHILS % (AUTO) 0.5 % (0.0-8.0); HEMATOCRIT 30.8 % (42-54); LYMPHOCYTES % (AUTO) 39.5 % (21.0-51.0); MEAN CORPUSCULAR HEMOGLOBIN 25.3 pg (27.0-33.0); MEAN CORPUSCULAR HGB CONC 30.2 g/dL (32.0-36.0); MEAN CORPUSCULAR VOLUME 83.7 fL (79-99); MONOCYTES % (AUTO) 9.1 % (3.0-13.0); NEUTROPHILS % (AUTO) 50.3 % (40.0-77.0); PLATELET COUNT (AUTO) 314 K/uL (130-400); RED BLOOD CELL COUNT(AUTO) 3.68 MIL/uL (4.50-6.20); RED CELL DISTRIBUTION WIDTH 16.8 % (11.0-15.5); WHITE BLOOD COUNT (AUTO) 6.6 K/uL (4.8-10.8)
[2020-03-09 15:09] LABS: CREATININE 0.9 mg/dL (0.5-1.5); POTASSIUM 3.8 mmol/L (3.5-5.1)
[2020-03-16] VITALS (25 sets, daily range): BP systolic 94–122; BP diastolic 51–77
[2020-03-16] MEDS ORDERED: SODIUM CHLORIDE 0.9% 1000ML 1,000 ML IV SCH (08:00)
[2020-03-16] MEDS ORDERED: LACTATED RINGERS 1000ML 1,000 ML IV ONE (09:31)
[2020-03-16] MEDS ORDERED: CEFAZOLIN SODIUM 1 GM VIAL ONE (10:36)
[2020-03-16] MEDS ORDERED: DEXAMETHASONE SOD PHOSPHATE 10MG/ML 1ML VIAL ONE (10:44)
[2020-03-16] MEDS ORDERED: LIDOCAINE PF 2% 5ML ABBOJECT ONE (10:44)
[2020-03-16] MEDS ORDERED: SUCCINYLCHOLINE CHLORIDE 20 MG/ML 10 ML VIAL ONE (10:44)
[2020-03-16] MEDS ORDERED: CEFAZOLIN SODIUM 1 GM VIAL IVP PRN (10:45)
[2020-03-16] MEDS ORDERED: MIDAZOLAM HCL 1 MG/ML 2ML VIAL ONE (10:46)
[2020-03-16] MEDS ORDERED: ONDANSETRON HCL 4 MG/2 ML VIAL ONE (10:46)
[2020-03-16] MEDS ORDERED: PROPOFOL 10 MG/ML 20ML VIAL IV ONE (10:46)
[2020-03-16] MEDS ORDERED: GLYCOPYRROLATE 1 MG/5 ML SYRINGE ONE (10:46)
[2020-03-16] MEDS ORDERED: NEOSTIGMINE 5MG/5ML SYR IV ONE (10:47)
[2020-03-16] MEDS ORDERED: ROCURONIUM 10MG/1ML SYR 10 MG/ML ML ONE ×2 (10:47→11:59)
[2020-03-16] MEDS ORDERED: FENTANYL CITRATE PF 50 MCG/1 ML 2ML VIAL ONE (10:47)
[2020-03-16] MEDS ORDERED: MEPERIDINE-PF 25 MG/ML SYG ONE ×2 (10:49→13:46)
[2020-03-16] MEDS ORDERED: EPHEDRINE SULFATE 50 MG/ML AMPULE ONE (11:38)
[2020-03-16] MEDS ORDERED: FENTANYL CITRATE PF 50 MCG/1 ML 5ML AMP IV ONE ×2 (11:58→13:37)
[2020-03-16] MEDS ORDERED: PHENYLEPHRINE HCL 10 MG/ML 1ML VIAL IV ONE (13:07)
[2020-03-16] MEDS ORDERED: KETOROLAC TROMETHAMINE 30MG/ML ONE (13:44)
[2020-03-16] MEDS ORDERED: DURAMORPH PF1 MG/ML 10ML AMP IV ONE (13:48)
[2020-03-16 14:30] LABS: HEMATOCRIT 31.6 % (42-54)
[2020-03-16] MEDS: CEFAZOLIN SODIUM 1 GM VIAL IVP SCH (17:26)
[2020-03-16] MEDS: LACTATED RINGERS 1000ML 1,000 ML IV SCH ×2 (17:27→23:33)
[2020-03-16] MEDS: MORPHINE SULFATE 4 MG/1ML SYG IVP PRN (17:27)
[2020-03-16] MEDS: KETOROLAC TROMETHAMINE 30MG/ML IV SCH ×3 (18:00→23:38)
[2020-03-17] MEDS: CEFAZOLIN SODIUM 1 GM VIAL IVP SCH (01:23)
[2020-03-17] MEDS: MORPHINE SULFATE 4 MG/1ML SYG IVP PRN ×4 (02:44→22:35)
[2020-03-17 03:44] LABS: HEMATOCRIT 33.1 % (42-54); MEAN CORPUSCULAR HEMOGLOBIN 25.2 pg (27.0-33.0); MEAN CORPUSCULAR HGB CONC 31.1 g/dL (32.0-36.0); MEAN CORPUSCULAR VOLUME 80.9 fL (79-99); RED BLOOD CELL COUNT(AUTO) 4.09 MIL/uL (4.50-6.20); RED CELL DISTRIBUTION WIDTH 16.8 % (11.0-15.5); WHITE BLOOD COUNT (AUTO) 16.7 K/uL (4.8-10.8)
[2020-03-17 03:50] VITALS: BP 102/67
[2020-03-17 03:56] LABS: CREATININE 0.9 mg/dL (0.5-1.5); POTASSIUM 4.5 mmol/L (3.5-5.1)
[2020-03-17] MEDS: LACTATED RINGERS 1000ML 1,000 ML IV SCH ×3 (05:38→17:57)
[2020-03-17] MEDS: KETOROLAC TROMETHAMINE 30MG/ML IV SCH ×3 (05:39→17:49)
[2020-03-17 07:58] VITALS: BP 99/60
[2020-03-17] MEDS: ONDANSETRON HCL 4 MG/2 ML VIAL IVP PRN ×2 (09:15→15:24)
[2020-03-17 12:00] VITALS: BP 106/59
[2020-03-17 16:00] VITALS: BP 100/63
[2020-03-17 20:04] VITALS: BP 104/61
[2020-03-18] VITALS (7 sets, daily range): BP systolic 96–122; BP diastolic 52–72
[2020-03-18] MEDS: KETOROLAC TROMETHAMINE 30MG/ML IV SCH ×4 (00:12→17:36)
[2020-03-18] MEDS: LACTATED RINGERS 1000ML 1,000 ML IV SCH ×2 (04:53→11:47)
[2020-03-18] MEDS: MORPHINE SULFATE 4 MG/1ML SYG IVP PRN ×2 (04:55→22:05)
[2020-03-18] MEDS: ENOXAPARIN SODIUM 30 MG/0.3 ML SQ SCH (12:23)
[2020-03-18] MEDS: FAMOTIDINE/PF 20 MG/2 ML VIAL IV SCH ×2 (16:28→20:59)
[2020-03-19] MEDS: KETOROLAC TROMETHAMINE 30MG/ML IV SCH ×4 (01:15→17:04)
[2020-03-19] MEDS: LACTATED RINGERS 1000ML 1,000 ML IV SCH ×3 (02:03→14:18)
[2020-03-19 04:01] VITALS: BP 113/65
[2020-03-19 04:28] LABS: BASOPHILS % (AUTO) 0.2 % (0.0-5.0); EOSINOPHILS % (AUTO) 0.9 % (0.0-8.0); HEMATOCRIT 25.8 % (42-54); LYMPHOCYTES % (AUTO) 8.2 % (21.0-51.0); MEAN CORPUSCULAR HEMOGLOBIN 25.2 pg (27.0-33.0); MEAN CORPUSCULAR HGB CONC 31.8 g/dL (32.0-36.0); MEAN CORPUSCULAR VOLUME 79.4 fL (79-99); MONOCYTES % (AUTO) 4.2 % (3.0-13.0); NEUTROPHILS % (AUTO) 85.8 % (40.0-77.0); PLATELET COUNT (AUTO) 227 K/uL (130-400); RED BLOOD CELL COUNT(AUTO) 3.25 MIL/uL (4.50-6.20); RED CELL DISTRIBUTION WIDTH 16.5 % (11.0-15.5); WHITE BLOOD COUNT (AUTO) 11.6 K/uL (4.8-10.8)
[2020-03-19 04:58] LABS: BILIRUBIN,TOTAL 0.5 mg/dL (0.2-1.0); CREATININE 0.8 mg/dL (0.5-1.5); POTASSIUM 3.7 mmol/L (3.5-5.1)
[2020-03-19 07:57] VITALS: BP 120/73
[2020-03-19] MEDS ORDERED: ENOXAPARIN SODIUM 30 MG/0.3 ML SQ SCH (09:00)
[2020-03-19] MEDS: ENOXAPARIN SODIUM 30 MG/0.3 ML SQ SCH (10:41)
[2020-03-19] MEDS: FAMOTIDINE/PF 20 MG/2 ML VIAL IV SCH ×2 (10:41→20:16)
[2020-03-19] MEDS: DOCUSATE SODIUM 100 MG CAP PO SCH ×2 (10:55→20:16)
[2020-03-19] MEDS: ONDANSETRON HCL 4 MG/2 ML VIAL IVP PRN ×2 (14:18→20:21)
[2020-03-19] MEDS: MORPHINE SULFATE 4 MG/1ML SYG IVP PRN ×2 (14:18→20:22)
[2020-03-19 17:04] VITALS: BP 124/76
[2020-03-19 20:29] VITALS: BP 123/75
[2020-03-19 23:39] VITALS: BP 122/71
[2020-03-20] MEDS: KETOROLAC TROMETHAMINE 30MG/ML IV SCH ×5 (00:08→23:04)
[2020-03-20] MEDS: LACTATED RINGERS 1000ML 1,000 ML IV SCH ×4 (00:08→19:56)
[2020-03-20 03:51] VITALS: BP 111/66
[2020-03-20 08:23] VITALS: BP 117/68
[2020-03-20] MEDS: DOCUSATE SODIUM 100 MG CAP PO SCH ×2 (09:53→19:56)
[2020-03-20] MEDS: FAMOTIDINE/PF 20 MG/2 ML VIAL IV SCH ×2 (09:53→19:56)
[2020-03-20] MEDS: ENOXAPARIN SODIUM 30 MG/0.3 ML SQ SCH (09:54)
[2020-03-20 13:22] VITALS: BP 126/74
[2020-03-20 18:35] VITALS: BP 117/67
[2020-03-20 19:47] VITALS: BP 116/63
[2020-03-21] VITALS (7 sets, daily range): BP systolic 114–134; BP diastolic 61–83
[2020-03-21] MEDS: KETOROLAC TROMETHAMINE 30MG/ML IV SCH ×2 (05:34→12:19)
[2020-03-21] MEDS: LACTATED RINGERS 1000ML 1,000 ML IV SCH ×3 (08:15→21:11)
[2020-03-21] MEDS: FAMOTIDINE/PF 20 MG/2 ML VIAL IV SCH ×2 (09:34→21:04)
[2020-03-21] MEDS: DOCUSATE SODIUM 100 MG CAP PO SCH ×2 (09:34→21:04)
[2020-03-21] MEDS: ENOXAPARIN SODIUM 30 MG/0.3 ML SQ SCH (09:35)
[2020-03-21] MEDS ORDERED: AMOXICILLIN/POTASSIUM CLAV 875-125 TABLET PO SCH (12:15)
[2020-03-21] MEDS ORDERED: ACETAMINOPHEN 325 MG TAB PO PRN (19:45)
[2020-03-21] MEDS: ZOSYN 3.375GM+NS 50ML 50 ML IV SCH (21:04)
[2020-03-21] MEDS: ACETAMINOPHEN-CODEINE 300/30MG TAB PO PRN (21:09)
[2020-03-22 04:03] VITALS: BP 135/80
[2020-03-22 06:34] LABS: BASOPHILS % (AUTO) 0.2 % (0.0-5.0); EOSINOPHILS % (AUTO) 0.8 % (0.0-8.0); HEMATOCRIT 26.7 % (42-54); LYMPHOCYTES % (AUTO) 9.5 % (21.0-51.0); MEAN CORPUSCULAR HEMOGLOBIN 24.4 pg (27.0-33.0); MEAN CORPUSCULAR HGB CONC 31.1 g/dL (32.0-36.0); MEAN CORPUSCULAR VOLUME 78.5 fL (79-99); MONOCYTES % (AUTO) 6.7 % (3.0-13.0); NEUTROPHILS % (AUTO) 82.1 % (40.0-77.0); PLATELET COUNT (AUTO) 282 K/uL (130-400); RED CELL DISTRIBUTION WIDTH 17.1 % (11.0-15.5); WHITE BLOOD COUNT (AUTO) 14.6 K/uL (4.8-10.8)
[2020-03-22 06:45] LABS: CREATININE 0.8 mg/dL (0.5-1.5); POTASSIUM 3.8 mmol/L (3.5-5.1)
[2020-03-22] MEDS: LACTATED RINGERS 1000ML 1,000 ML IV SCH ×3 (06:54→22:12)
[2020-03-22] MEDS: ZOSYN 3.375GM+NS 50ML 50 ML IV SCH ×3 (06:54→22:17)
[2020-03-22] MEDS ORDERED: DIATR MEGLU/DIATRIZOATE SODIUM 30 ML BOTTLE ONE (07:46)
[2020-03-22 08:20] VITALS: BP 125/79
[2020-03-22] MEDS ORDERED: IOHEXOL 350 MG/ML 100ML INFUS..BTL IV ONE (10:16)
[2020-03-22] MEDS: FAMOTIDINE/PF 20 MG/2 ML VIAL IV SCH ×2 (11:04→22:10)
[2020-03-22] MEDS: ENOXAPARIN SODIUM 30 MG/0.3 ML SQ SCH (11:04)
[2020-03-22] MEDS: DOCUSATE SODIUM 100 MG CAP PO SCH ×2 (11:04→22:12)
[2020-03-22] MEDS: ACETAMINOPHEN-CODEINE 300/30MG TAB PO PRN (11:04)
[2020-03-22] MEDS: MORPHINE SULFATE 2 MG/ML 1ML SYG IVP PRN ×3 (12:31→22:11)
[2020-03-22 12:52] VITALS: BP 128/85
[2020-03-22 16:48] VITALS: BP 130/83
[2020-03-22 20:41] VITALS: BP 139/73
[2020-03-22 23:26] VITALS: BP 134/79
[2020-03-23 03:51] VITALS: BP 123/79
[2020-03-23] MEDS: ZOSYN 3.375GM+NS 50ML 50 ML IV SCH ×3 (05:33→20:15)
[2020-03-23] MEDS: MORPHINE SULFATE 2 MG/ML 1ML SYG IVP PRN ×4 (05:35→22:48)
[2020-03-23 06:43] LABS: BASOPHILS % (AUTO) 0.2 % (0.0-5.0); EOSINOPHILS % (AUTO) 0.8 % (0.0-8.0); HEMATOCRIT 26.2 % (42-54); LYMPHOCYTES % (AUTO) 11.3 % (21.0-51.0); MEAN CORPUSCULAR HEMOGLOBIN 24.6 pg (27.0-33.0); MEAN CORPUSCULAR HGB CONC 32.1 g/dL (32.0-36.0); MEAN CORPUSCULAR VOLUME 76.6 fL (79-99); NEUTROPHILS % (AUTO) 79.7 % (40.0-77.0); PLATELET COUNT (AUTO) 300 K/uL (130-400); RED BLOOD CELL COUNT(AUTO) 3.42 MIL/uL (4.50-6.20); WHITE BLOOD COUNT (AUTO) 14.2 K/uL (4.8-10.8)
[2020-03-23 06:58] LABS: CREATININE 0.7 mg/dL (0.5-1.5)
[2020-03-23 08:09] VITALS: BP 123/77
[2020-03-23] MEDS: DOCUSATE SODIUM 100 MG CAP PO SCH ×2 (09:00→20:15)
[2020-03-23] MEDS: FAMOTIDINE/PF 20 MG/2 ML VIAL IV SCH ×2 (09:06→20:15)
[2020-03-23] MEDS: ENOXAPARIN SODIUM 30 MG/0.3 ML SQ SCH (09:07)
[2020-03-23] MEDS: LACTATED RINGERS 1000ML 1,000 ML IV SCH ×2 (09:08→18:43)
[2020-03-23 11:36] VITALS: BP 132/78
[2020-03-23 16:08] VITALS: BP 124/81
[2020-03-23] MEDS: ACETAMINOPHEN-CODEINE 300/30MG TAB PO PRN (18:42)
[2020-03-23 20:00] VITALS: BP 131/77
[2020-03-23 23:44] VITALS: BP 132/84
[2020-03-24] MEDS: LACTATED RINGERS 1000ML 1,000 ML IV SCH ×3 (00:27→16:08)
[2020-03-24] MEDS: MORPHINE SULFATE 2 MG/ML 1ML SYG IVP PRN ×4 (03:28→20:46)
[2020-03-24 03:48] VITALS: BP 126/81
[2020-03-24] MEDS: ZOSYN 3.375GM+NS 50ML 50 ML IV SCH ×3 (04:21→20:45)
[2020-03-24 05:49] LABS: BASOPHILS % (AUTO) 0.1 % (0.0-5.0); EOSINOPHILS % (AUTO) 1.9 % (0.0-8.0); HEMATOCRIT 25.2 % (42-54); LYMPHOCYTES % (AUTO) 8.5 % (21.0-51.0); MEAN CORPUSCULAR HEMOGLOBIN 24.5 pg (27.0-33.0); MEAN CORPUSCULAR HGB CONC 31.3 g/dL (32.0-36.0); MONOCYTES % (AUTO) 6.3 % (3.0-13.0); NEUTROPHILS % (AUTO) 82.5 % (40.0-77.0); PLATELET COUNT (AUTO) 330 K/uL (130-400); RED BLOOD CELL COUNT(AUTO) 3.23 MIL/uL (4.50-6.20); RED CELL DISTRIBUTION WIDTH 17.1 % (11.0-15.5); WHITE BLOOD COUNT (AUTO) 13.4 K/uL (4.8-10.8)
[2020-03-24 06:05] LABS: CREATININE 0.6 mg/dL (0.5-1.5); POTASSIUM 3.5 mmol/L (3.5-5.1)
[2020-03-24 07:10] VITALS: BP 129/82
[2020-03-24] MEDS: ENOXAPARIN SODIUM 30 MG/0.3 ML SQ SCH (08:38)
[2020-03-24] MEDS: FAMOTIDINE/PF 20 MG/2 ML VIAL IV SCH ×2 (08:38→20:45)
[2020-03-24] MEDS: DOCUSATE SODIUM 100 MG CAP PO SCH ×2 (08:39→20:45)
[2020-03-24 10:40] VITALS: BP 129/79
[2020-03-24 15:33] VITALS: BP 136/84
[2020-03-24 20:07] VITALS: BP 125/85
[2020-03-24 23:44] VITALS: BP 121/79
[2020-03-25] MEDS: LACTATED RINGERS 1000ML 1,000 ML IV SCH ×4 (02:36→23:29)
[2020-03-25] MEDS: MORPHINE SULFATE 2 MG/ML 1ML SYG IVP PRN ×4 (02:36→23:59)
[2020-03-25 03:13] VITALS: BP 130/82
[2020-03-25] MEDS: ZOSYN 3.375GM+NS 50ML 50 ML IV SCH ×3 (04:52→20:01)
[2020-03-25 08:44] VITALS: BP 124/82
[2020-03-25] MEDS: HONEY 1 APPL/ML TUBE TP SCH (09:00)
[2020-03-25] MEDS: DOCUSATE SODIUM 100 MG CAP PO SCH ×2 (09:07→20:01)
[2020-03-25] MEDS: FAMOTIDINE/PF 20 MG/2 ML VIAL IV SCH ×2 (09:15→20:01)
[2020-03-25] MEDS: ENOXAPARIN SODIUM 30 MG/0.3 ML SQ SCH (09:17)
[2020-03-25 11:25] VITALS: BP 129/81
[2020-03-25] MEDS: KETOROLAC TROMETHAMINE 15MG/ML IV SCH ×2 (14:47→14:54)
[2020-03-25 16:00] VITALS: BP 126/84
[2020-03-25 20:44] VITALS: BP 124/81
[2020-03-26] VITALS (7 sets, daily range): BP systolic 122–134; BP diastolic 79–90
[2020-03-26] MEDS: MORPHINE SULFATE 2 MG/ML 1ML SYG IVP PRN ×4 (03:49→17:54)
[2020-03-26] MEDS: ZOSYN 3.375GM+NS 50ML 50 ML IV SCH ×3 (04:19→22:39)
[2020-03-26] MEDS: LACTATED RINGERS 1000ML 1,000 ML IV SCH ×3 (08:15→22:39)
[2020-03-26] MEDS: DOCUSATE SODIUM 100 MG CAP PO SCH ×2 (08:47→22:39)
[2020-03-26] MEDS: FAMOTIDINE/PF 20 MG/2 ML VIAL IV SCH ×2 (08:47→22:39)
[2020-03-26] MEDS: ENOXAPARIN SODIUM 30 MG/0.3 ML SQ SCH (08:49)
[2020-03-26] MEDS: ACETAMINOPHEN-CODEINE 300/30MG TAB PO PRN (16:48)
[2020-03-27] MEDS: MORPHINE SULFATE 2 MG/ML 1ML SYG IVP PRN ×2 (01:19→07:56)
[2020-03-27 04:22] VITALS: BP 125/84
[2020-03-27] MEDS: ZOSYN 3.375GM+NS 50ML 50 ML IV SCH ×2 (05:43→12:03)
[2020-03-27 07:44] VITALS: BP 129/80
[2020-03-27] MEDS: ENOXAPARIN SODIUM 30 MG/0.3 ML SQ SCH (07:54)
[2020-03-27] MEDS: DOCUSATE SODIUM 100 MG CAP PO SCH (07:54)
[2020-03-27] MEDS: FAMOTIDINE/PF 20 MG/2 ML VIAL IV SCH (07:54)
[2020-03-27] MEDS: LACTATED RINGERS 1000ML 1,000 ML IV SCH (08:05)
[2020-03-27] MEDS: HONEY 1 APPL/ML TUBE TP SCH (08:06)
[2020-03-27] MEDS: ACETAMINOPHEN-CODEINE 300/30MG TAB PO PRN (10:25)
[2020-03-27] MEDS ORDERED: MORPHINE SULFATE 2 MG/ML 1ML SYG IVP SCH (10:30)
[2020-03-27] MEDS ORDERED: MORPHINE SULFATE 2 MG/ML 1ML SYG IVP PRN (11:30)
[2020-03-27 11:45] VITALS: BP 134/85
[2020-03-27 15:50] VITALS: BP 130/82
== END 2020-03-27 19:45 | disposition home or self-care (01) | DRG 331 ==
LOC: DAHIP 03-16 09:10 → EDSTATUS 03-16 13:00 → 3BH 03-16 15:18
PROVIDERS: ADMIT Surgery; ATTEND Surgery
PROC: 0WQF0ZZ Repair Abdominal Wall, Open Approach (ICD-10-PCS; 2020-03-16)
PROC: 0DBA0ZZ Excision of Jejunum, Open Approach (ICD-10-PCS; principal; 2020-03-16 10:25)
PROC: 0DN80ZZ Release Small Intestine, Open Approach (ICD-10-PCS; 2020-03-16 10:25)
DX: K63.2 Fistula of intestine (principal); K66.0 Peritoneal adhesions (postprocedural) (postinfection); Z20.822 Contact with and (suspected) exposure to COVID-19; E11.9 Type 2 diabetes mellitus without complications; K21.9 Gastro-esophageal reflux disease without esophagitis; K57.30 Diverticulosis of large intestine without perforation or abscess without bleeding; Z85.038 Personal history of other malignant neoplasm of large intestine; Z86.718 Personal history of other venous thrombosis and embolism; Z90.49 Acquired absence of other specified parts of digestive tract
CPT/HCPCS: 36415; 71045; 74018; 74177; 80048; 80053; 82948; 85014; 85018; 85025; 85027; 86850; 86900; 86901; 87040; 93005; 97039; A4344; G0378; J0330; J0690; J1100; J1650; J1885; J2001; J2175; J2250; J2270; J2274; J2370; J2405; J2543; J2704; J2710; J3010; J3490; J7030; J7120; Q9963; Q9967; U0003

== ENCOUNTER → 2020-03-30 | Outpatient (CLI) | payer OTHER ==
[~2020-03-30] MED LIST changes: +LIDOCAINE HCL 2% JELLY 5 ML TP ONE
== END | disposition home or self-care (01) ==
LOC: WHH 09:45
PROVIDERS: ATTEND Family Medicine
DX: K94.09 Other complications of colostomy (principal); K21.9 Gastro-esophageal reflux disease without esophagitis; K91.89 Other postprocedural complications and disorders of digestive system; Z85.060 Personal history of malignant carcinoid tumor of small intestine; Z86.73 Personal history of transient ischemic attack (TIA), and cerebral infarction without residual deficits; Y83.8 Other surgical procedures as the cause of abnormal reaction of the patient, or of later complication, without mention of misadventure at the time of the procedure
CPT/HCPCS: 11042; 97605

== ENCOUNTER 2020-04-02 11:44 | Inpatient (IN) | payer OTHER ==
[~2020-04-02] VITALS: Ht 182.9 cm; Wt 81.5 kg
[2020-04-02 12:09] LABS: BASOPHILS % (AUTO) 0.2 % (0.0-5.0); EOSINOPHILS % (AUTO) 0.1 % (0.0-8.0); HEMATOCRIT 24.7 % (42-54); LYMPHOCYTES % (AUTO) 10.4 % (21.0-51.0); MEAN CORPUSCULAR HGB CONC 32.4 g/dL (32.0-36.0); MEAN CORPUSCULAR VOLUME 74.2 fL (79-99); MONOCYTES % (AUTO) 9.5 % (3.0-13.0); NEUTROPHILS % (AUTO) 79.2 % (40.0-77.0); PLATELET COUNT (AUTO) 489 K/uL (130-400); RED BLOOD CELL COUNT(AUTO) 3.33 MIL/uL (4.50-6.20); WHITE BLOOD COUNT (AUTO) 15.6 K/uL (4.8-10.8)
[2020-04-02 12:16] LABS: CARBON DIOXIDE 26 mmol/L (21-32); CHLORIDE 92 mmol/L (101-111); CREATININE 0.9 mg/dL (0.5-1.5); GLOMERULAR FILTR. RATE CALC 97 mL/min (>60); GLUCOSE,RANDOM 126 mg/dL (70-105); POTASSIUM 4.3 mmol/L (3.5-5.1); SODIUM SERUM 128 mmol/L (136-145); UREA NITROGEN, BLOOD 13 mg/dL (7-18)
[2020-04-02] MEDS ORDERED: ZOSYN 3.375GM+NS 50ML 50 ML IV ONE (12:26)
[2020-04-02 12:27] LABS: INR 1.34 (0.85-1.15)
[2020-04-02] MEDS ORDERED: METRONIDAZOLE 500MG/100ML BAG 100 ML ONE (12:27)
[2020-04-02 12:29] LABS: PARTIAL THROMBOPLASTIN TIME 37.5 SEC (26.3-35.5)
[2020-04-02 12:30] LABS: ALANINE AMINOTRANSFERASE 47 U/L (12-78); ALBUMIN 2.2 g/dL (3.5-5.0); ASPARTATE AMINOTRANSFERASE 58 U/L (10-37); BILIRUBIN,TOTAL 0.5 mg/dL (0.2-1.0); CREATINE KINASE, TOTAL 34 U/L (21-232); MYOGLOBIN 24 ng/mL (10-92); TROPONIN I < 0.04 ng/mL (0.00-0.06)
[2020-04-02] MEDS ORDERED: EPINEPHRINE PF 1MG AMP ONE (13:59)
[2020-04-02] MEDS ORDERED: SOLU-MEDROL 125MG VIAL ONE (14:01)
[2020-04-02] MEDS ORDERED: FAMOTIDINE 20MG VIAL IV ONE ×2 (14:05→23:22)
[2020-04-02] MEDS ORDERED: DiphenhydrAMINE HCL 50 MG/ML VIAL ONE (14:05)
[2020-04-02] MEDS ORDERED: DEXTROSE 50%-WATER 50 ML DISP.SYRIN IV PRN (14:15)
[2020-04-02] MEDS ORDERED: LEVOFLOXACIN 500 MG/D5W 100 ML 100 ML IV SCH (14:15)
[2020-04-02] MEDS ORDERED: NOREPINEPHRIN 4MG/NS 250ML 250 ML IV PRN (14:15)
[2020-04-02] MEDS ORDERED: ACETAMINOPHEN 650 MG SUPPOSITORY RC PRN (14:15)
[2020-04-02] MEDS ORDERED: 0.9%NACL 1000ML 1,000 ML IV ONE (14:15)
[2020-04-02] MEDS ORDERED: POTASSIUM CHLORIDE 20MEQ/100ML 100 ML IV PRN (14:15)
[2020-04-02] MEDS ORDERED: LIDOCAINE HCL-MPF 1% 2ML VIAL IV PRN (14:15)
[2020-04-02] MEDS ORDERED: MORPHINE 4 MG SYG IVP PRN (14:15)
[2020-04-02] MEDS ORDERED: GLUCAGON 1MG KIT 1 MG ML IM PRN (14:15)
[2020-04-02] MEDS ORDERED: 0.9%NACL 1000ML 1,000 ML IV SCH (14:15)
[2020-04-02] MEDS: DiphenhydrAMINE HCL 50 MG/ML VIAL IV SCH (14:15)
[2020-04-02] MEDS ORDERED: LEVOFLOXACIN 500 MG/D5W 100 ML 100 ML ONE (14:33)
[2020-04-02 15:09] LABS: CREATINE KINASE, TOTAL 33 U/L (21-232); MYOGLOBIN 16 ng/mL (10-92); TROPONIN I < 0.04 ng/mL (0.00-0.06)
[2020-04-02 15:18] LABS: APPEARANCE,URINE Clear (CLEAR); BILIRUBIN,URINE Small (NEGATIVE); COLOR,URINE Dark Yellow (YELLOW); GLUCOSE, URINE (UA) Negative (NEGATIVE); KETONES,URINE Trace mg/dL (NEGATIVE); LEUKOCYTE ESTERASE ,URINE Trace (NEGATIVE); NITRATE,URINE Negative (NEGATIVE); OCCULT BLOOD,URINE Negative (NEGATIVE); PROTEIN,URINE POS 1+ mg/dL (NEGATIVE)
[2020-04-02 15:29] LABS: BACTERIA,URINE Rare /HPF (None Seen); MUCUS,URINE Rare LPF (None Seen); RBC,URINE 0-1 /HPF (0-1); SQUAMOUS EPITHELIAL CELL,UR Rare /HPF (0-2)
[2020-04-02] MEDS ORDERED: IOHEXOL-350 75 ML VIAL IV ONE (15:32)
[2020-04-02] MEDS ORDERED: VANCOMYCIN PROTOCOL PER PHARMACY IV SCH (16:30)
[2020-04-02] MEDS ORDERED: MEROPENEM 500 MG VIAL IVP SCH (16:30)
[2020-04-02] MEDS ORDERED: VANCOMYCIN 1G/250ML KIT 250 ML IV SCH (16:30)
[2020-04-02] MEDS ORDERED: CLINDAMYCIN IVPB 600MG/50ML 50 ML IV SCH (17:00)
[2020-04-02] MEDS ORDERED: CLINDAMYCIN IVPB 600MG/50ML 50 ML IV ONE (18:18)
[2020-04-02] MEDS ORDERED: MORPHINE 2 MG SYG ONE (19:55)
[2020-04-02 20:24] LABS: CREATINE KINASE, TOTAL 37 U/L (21-232); MYOGLOBIN 19 ng/mL (10-92); TROPONIN I < 0.04 ng/mL (0.00-0.06)
[2020-04-02] MEDS ORDERED: METRONIDAZOLE 500MG/100ML BAG 100 ML IVPB SCH (22:00)
[2020-04-02] MEDS ORDERED: MEROPENEM 500 MG VIAL ONE (23:22)
[2020-04-03 05:04] LABS: BASOPHILS % (AUTO) 0.1 % (0.0-5.0); HEMATOCRIT 25.9 % (42-54); LYMPHOCYTES % (AUTO) 9.6 % (21.0-51.0); MEAN CORPUSCULAR HEMOGLOBIN 23.9 pg (27.0-33.0); MEAN CORPUSCULAR HGB CONC 31.3 g/dL (32.0-36.0); MEAN CORPUSCULAR VOLUME 76.4 fL (79-99); MONOCYTES % (AUTO) 3.7 % (3.0-13.0); NEUTROPHILS % (AUTO) 85.8 % (40.0-77.0); PLATELET COUNT (AUTO) 441 K/uL (130-400); RED BLOOD CELL COUNT(AUTO) 3.39 MIL/uL (4.50-6.20); RED CELL DISTRIBUTION WIDTH 16.8 % (11.0-15.5); WHITE BLOOD COUNT (AUTO) 10.6 K/uL (4.8-10.8)
[2020-04-03 05:36] LABS: AMYLASE 29 U/L (25-115); CARBON DIOXIDE 28 mmol/L (21-32); CHLORIDE 98 mmol/L (101-111); CREATINE KINASE, TOTAL 31 U/L (21-232); CREATININE 0.7 mg/dL (0.5-1.5); GLOMERULAR FILTR. RATE CALC 130 mL/min (>60); GLUCOSE,RANDOM 148 mg/dL (70-105); MYOGLOBIN 18 ng/mL (10-92); PHOSPHORUS 3.9 mg/dL (2.5-4.9); POTASSIUM 4.8 mmol/L (3.5-5.1); SODIUM SERUM 135 mmol/L (136-145); TROPONIN I < 0.04 ng/mL (0.00-0.06); UREA NITROGEN, BLOOD 13 mg/dL (7-18)
[2020-04-03 05:55] LABS: LIPASE 48 U/L (114-286)
[2020-04-03 07:01] LABS: HEMOGLOBIN A1C 5.3 % (4.0-6.0)
[2020-04-03] MEDS: FLUCONAZOLE 400 MG/NS 200 ML 200 ML IV SCH (09:00)
[2020-04-03] MEDS: ENOXAPARIN SODIUM 40 MG/0.4 ML SYRINGE SQ SCH (09:00)
[2020-04-03] MEDS: FAMOTIDINE 20MG VIAL IV SCH ×2 (09:00→21:00)
[2020-04-03] MEDS ORDERED: ENOXAPARIN SODIUM 40 MG/0.4 ML SYRINGE SQ ONE (09:36)
[2020-04-03] MEDS ORDERED: MEROPENEM 500 MG VIAL ONE ×2 (09:36→22:58)
[2020-04-03] MEDS ORDERED: FAMOTIDINE 20MG VIAL IV ONE ×2 (09:37→20:08)
[2020-04-03] MEDS ORDERED: 0.9%NACL 50ML 50 ML IV ONE (09:37)
[2020-04-03] MEDS ORDERED: CLINDAMYCIN IVPB 600MG/50ML 50 ML IV ONE (12:25)
[2020-04-03] MEDS: DiphenhydrAMINE HCL 50 MG/ML VIAL IV SCH (14:15)
[2020-04-03] MEDS ORDERED: 0.9%NACL 1000ML 1,000 ML IV ONE ×2 (15:48→20:10)
[2020-04-03] MEDS: DEXTROSE 5%-LACTATED RINGERS 1,000 ML IV SCH (17:00)
[2020-04-03] MEDS ORDERED: MORPHINE 4 MG SYG ONE (20:08)
[2020-04-03] MEDS: MEROPENEM 500 MG VIAL IVP SCH (21:00)
[2020-04-03] MEDS ORDERED: VANCOMYCIN PROTOCOL PER PHARMACY IV SCH (21:00)
[2020-04-03] MEDS: VANCOMYCIN 1G/250ML KIT 250 ML IV SCH ×2 (22:00→23:00)
[2020-04-04] MEDS ORDERED: MORPHINE 4 MG SYG ONE (00:19)
[2020-04-04 01:55] VITALS: BP 107/66
[2020-04-04] MEDS: DEXTROSE 5%-LACTATED RINGERS 1,000 ML IV SCH ×3 (03:00→22:50)
[2020-04-04 04:00] VITALS: BP 101/68
[2020-04-04 05:25] LABS: BASOPHILS % (AUTO) 0.1 % (0.0-5.0); HEMATOCRIT 24.2 % (42-54); LYMPHOCYTES % (AUTO) 11.2 % (21.0-51.0); MEAN CORPUSCULAR HEMOGLOBIN 23.3 pg (27.0-33.0); MEAN CORPUSCULAR HGB CONC 30.6 g/dL (32.0-36.0); MEAN CORPUSCULAR VOLUME 76.3 fL (79-99); MONOCYTES % (AUTO) 8.1 % (3.0-13.0); NEUTROPHILS % (AUTO) 79.6 % (40.0-77.0); PLATELET COUNT (AUTO) 525 K/uL (130-400); RED BLOOD CELL COUNT(AUTO) 3.17 MIL/uL (4.50-6.20); RED CELL DISTRIBUTION WIDTH 16.9 % (11.0-15.5); WHITE BLOOD COUNT (AUTO) 13.6 K/uL (4.8-10.8)
[2020-04-04] MEDS: VANCOMYCIN 1G/250ML KIT 250 ML IV SCH ×3 (05:53→22:50)
[2020-04-04] MEDS: MEROPENEM 500 MG VIAL IVP SCH ×3 (05:53→22:49)
[2020-04-04 06:16] LABS: CREATININE 0.8 mg/dL (0.5-1.5); MAGNESIUM 2.3 mg/dL (1.80-2.40); PHOSPHORUS 3.4 mg/dL (2.5-4.9); POTASSIUM 4.2 mmol/L (3.5-5.1); THYROID STIMULATING HORMONE 6.97 uIU/mL (0.36-3.74); URIC ACID 4.3 mg/dL (2.6-7.2)
[2020-04-04] MEDS ORDERED: AMOX-426 PO (06:33)
[2020-04-04] MEDS ORDERED: TRAM50TA4 PO (06:33)
[2020-04-04 07:14] LABS: % IRON SATURATION 14.1 % (30-44)
[2020-04-04 08:00] VITALS: BP 91/56
[2020-04-04] MEDS: Vitamin B Complex/Vit C/Folic Acid PO SCH (09:00)
[2020-04-04] MEDS: FAMOTIDINE 20MG VIAL IV SCH ×2 (09:43→22:49)
[2020-04-04] MEDS: MORPHINE 2 MG SYG IVP PRN ×2 (09:44→15:20)
[2020-04-04 10:12] LABS: INR 1.24 (0.85-1.15)
[2020-04-04] MEDS ORDERED: LEVOTHYROXINE 50 MCG TABLET PO SCH (10:51)
[2020-04-04 12:00] VITALS: BP 106/66
[2020-04-04] MEDS: FLUCONAZOLE 400 MG/NS 200 ML 200 ML IV SCH (12:15)
[2020-04-04] MEDS ORDERED: COMPOUND IV MISC 1 EACH IVSOLN MISC PRN (13:00)
[2020-04-04] MEDS: DiphenhydrAMINE HCL 50 MG/ML VIAL IV SCH (15:21)
[2020-04-04] MEDS: IRON SUCROSE COMPLEX 100 MG in 0.9%NACL 50ML 50 ML IV SCH (15:21)
[2020-04-04] MEDS: ENOXAPARIN SODIUM 40 MG/0.4 ML SYRINGE SQ SCH (15:24)
[2020-04-04 16:15] VITALS: BP 108/64
[2020-04-04 20:00] VITALS: BP 136/72
[2020-04-05] VITALS: BP 123/65
[2020-04-05 04:00] VITALS: BP_SYST 123; BP_SYST 126; BP_DIAS 53; BP_DIAS 70
[2020-04-05] MEDS: LEVOTHYROXINE 50 MCG TABLET PO SCH (06:21)
[2020-04-05] MEDS: MEROPENEM 500 MG VIAL IVP SCH ×3 (06:21→20:43)
[2020-04-05] MEDS: VANCOMYCIN 1G/250ML KIT 250 ML IV SCH ×3 (06:21→22:17)
[2020-04-05 08:00] VITALS: BP 112/72
[2020-04-05 08:26] LABS: HEMATOCRIT 24.9 % (42-54); MEAN CORPUSCULAR HEMOGLOBIN 23.9 pg (27.0-33.0); MEAN CORPUSCULAR HGB CONC 31.3 g/dL (32.0-36.0); MEAN CORPUSCULAR VOLUME 76.1 fL (79-99); RED BLOOD CELL COUNT(AUTO) 3.27 MIL/uL (4.50-6.20); RED CELL DISTRIBUTION WIDTH 17.1 % (11.0-15.5)
[2020-04-05 08:39] LABS: CREATININE 0.8 mg/dL (0.5-1.5); POTASSIUM 3.8 mmol/L (3.5-5.1)
[2020-04-05] MEDS: Vitamin B Complex/Vit C/Folic Acid PO SCH (09:00)
[2020-04-05 12:00] VITALS: BP 107/73
[2020-04-05] MEDS ORDERED: LACTATED RINGERS 1000ML 1,000 ML IV ONE (12:39)
[2020-04-05] MEDS: IRON SUCROSE COMPLEX 100 MG in 0.9%NACL 50ML 50 ML IV SCH (12:54)
[2020-04-05] MEDS: FLUCONAZOLE 400 MG/NS 200 ML 200 ML IV SCH (13:01)
[2020-04-05] MEDS: ENOXAPARIN SODIUM 40 MG/0.4 ML SYRINGE SQ SCH (13:01)
[2020-04-05] MEDS: FAMOTIDINE 20MG VIAL IV SCH ×2 (13:01→20:44)
[2020-04-05] MEDS: DEXTROSE 5%-LACTATED RINGERS 1,000 ML IV SCH ×2 (13:23→19:00)
[2020-04-05] MEDS: DiphenhydrAMINE HCL 50 MG/ML VIAL IV SCH (14:15)
[2020-04-05] MEDS ORDERED: M.V.I. IV [ADULT] 10 ML in CLINIMIX-E4.25%AA/D5+LYT2000ML 2,000 ML IV SCH ×2 (15:15→20:00)
[2020-04-05 16:00] VITALS: BP 137/78
[2020-04-05] MEDS: MORPHINE 2 MG SYG IVP PRN (16:59)
[2020-04-05 20:00] VITALS: BP 124/72
[2020-04-06] VITALS (7 sets, daily range): BP systolic 132–156; BP diastolic 64–82
[2020-04-06] MEDS: DEXTROSE 5%-LACTATED RINGERS 1,000 ML IV SCH ×2 (01:57→15:00)
[2020-04-06] MEDS ORDERED: GLUCAGON 1MG KIT 1 MG ML IM PRN (03:30)
[2020-04-06] MEDS ORDERED: DEXTROSE 50%-WATER 50 ML DISP.SYRIN IV PRN (03:30)
[2020-04-06] MEDS: MEROPENEM 500 MG VIAL IVP SCH ×3 (05:04→21:00)
[2020-04-06 05:32] LABS: HEMATOCRIT 24.1 % (42-54); MEAN CORPUSCULAR HEMOGLOBIN 23.3 pg (27.0-33.0); MEAN CORPUSCULAR HGB CONC 30.7 g/dL (32.0-36.0); RED BLOOD CELL COUNT(AUTO) 3.17 MIL/uL (4.50-6.20); RED CELL DISTRIBUTION WIDTH 16.8 % (11.0-15.5); WHITE BLOOD COUNT (AUTO) 6.1 K/uL (4.8-10.8)
[2020-04-06 05:47] LABS: CREATININE 0.8 mg/dL (0.5-1.5); POTASSIUM 3.6 mmol/L (3.5-5.1)
[2020-04-06] MEDS: INSULIN HUMULIN R 100 UNIT/ML 3ML SQ SCH ×3 (06:00→18:00)
[2020-04-06] MEDS: LEVOTHYROXINE 50 MCG TABLET PO SCH ×2 (06:24→06:30)
[2020-04-06] MEDS: VANCOMYCIN 1G/250ML KIT 250 ML IV SCH ×3 (06:25→21:16)
[2020-04-06] MEDS ORDERED: IOHEXOL-350 50ML VIAL IV ONE (08:27)
[2020-04-06] MEDS: Vitamin B Complex/Vit C/Folic Acid PO SCH (11:04)
[2020-04-06] MEDS: ENOXAPARIN SODIUM 40 MG/0.4 ML SYRINGE SQ SCH (11:05)
[2020-04-06] MEDS: FAMOTIDINE 20MG VIAL IV SCH ×2 (11:05→21:00)
[2020-04-06] MEDS: FAT EMULSIONS 20% 250ML 250 ML IV SCH (11:05)
[2020-04-06] MEDS: IRON SUCROSE COMPLEX 100 MG in 0.9%NACL 50ML 50 ML IV SCH (12:23)
[2020-04-06] MEDS: FLUCONAZOLE 400 MG/NS 200 ML 200 ML IV SCH (12:23)
[2020-04-06] MEDS ORDERED: DIATR MEGLU/DIATRIZOATE SODIUM 30 ML BOTTLE ONE (14:11)
[2020-04-06] MEDS: DiphenhydrAMINE HCL 50 MG/ML VIAL IV SCH (14:15)
[2020-04-06] MEDS ORDERED: IOHEXOL-350 75 ML VIAL IV ONE (17:26)
[2020-04-06] MEDS ORDERED: PHARMACY COMMUNICATION MISC SCH (19:45)
[2020-04-06] MEDS ORDERED: PROCALAMINE IV SOLUTION 1,000 ML IV ONE (20:00)
[2020-04-06] MEDS: MORPHINE 2 MG SYG IVP PRN (21:15)
[2020-04-07] MEDS ORDERED: PROCALAMINE IV SOLUTION 1,000 ML IV ONE
[2020-04-07] MEDS: DEXTROSE 5%-LACTATED RINGERS 1,000 ML IV SCH ×3 (01:38→20:56)
[2020-04-07 03:54] VITALS: BP 129/66
[2020-04-07 04:44] LABS: BASOPHILS % (AUTO) 0.2 % (0.0-5.0); HEMATOCRIT 25.7 % (42-54); LYMPHOCYTES % (AUTO) 29.6 % (21.0-51.0); MEAN CORPUSCULAR HGB CONC 31.1 g/dL (32.0-36.0); MEAN CORPUSCULAR VOLUME 76.9 fL (79-99); MONOCYTES % (AUTO) 8.7 % (3.0-13.0); NEUTROPHILS % (AUTO) 57.2 % (40.0-77.0); PLATELET COUNT (AUTO) 315 K/uL (130-400); RED BLOOD CELL COUNT(AUTO) 3.34 MIL/uL (4.50-6.20); RED CELL DISTRIBUTION WIDTH 16.9 % (11.0-15.5); WHITE BLOOD COUNT (AUTO) 4.7 K/uL (4.8-10.8)
[2020-04-07] MEDS: MEROPENEM 500 MG VIAL IVP SCH ×3 (05:02→20:55)
[2020-04-07] MEDS: VANCOMYCIN 1G/250ML KIT 250 ML IV SCH ×3 (05:02→21:55)
[2020-04-07 05:19] LABS: % IRON SATURATION 30.2 % (30-44)
[2020-04-07 05:25] LABS: CREATININE 0.7 mg/dL (0.5-1.5); POTASSIUM 3.6 mmol/L (3.5-5.1)
[2020-04-07] MEDS: INSULIN HUMULIN R 100 UNIT/ML 3ML SQ SCH ×5 (06:00→23:35)
[2020-04-07] MEDS: LEVOTHYROXINE 50 MCG TABLET PO SCH (06:07)
[2020-04-07 07:40] VITALS: BP 126/71
[2020-04-07] MEDS: Vitamin B Complex/Vit C/Folic Acid PO SCH (09:00)
[2020-04-07] MEDS: ENOXAPARIN SODIUM 40 MG/0.4 ML SYRINGE SQ SCH (11:33)
[2020-04-07] MEDS: FLUCONAZOLE 400 MG/NS 200 ML 200 ML IV SCH (11:33)
[2020-04-07] MEDS: FAMOTIDINE 20MG VIAL IV SCH ×2 (11:33→20:56)
[2020-04-07 11:48] VITALS: BP 132/67
[2020-04-07] MEDS: IRON SUCROSE COMPLEX 100 MG in 0.9%NACL 50ML 50 ML IV SCH (13:03)
[2020-04-07] MEDS: DiphenhydrAMINE HCL 50 MG/ML VIAL IV SCH (14:15)
[2020-04-07 16:14] VITALS: BP 135/74
[2020-04-07] MEDS: FAT EMULSIONS 20% 250ML 250 ML IV SCH (16:26)
[2020-04-07] MEDS: PROCALAMINE IV SOLUTION 1,000 ML IV SCH (16:28)
[2020-04-07 20:31] VITALS: BP 120/75
[2020-04-07 23:35] VITALS: BP 136/70
[2020-04-08 04:04] VITALS: BP 129/65
[2020-04-08] MEDS: MEROPENEM 500 MG VIAL IVP SCH ×3 (05:52→20:08)
[2020-04-08] MEDS: VANCOMYCIN 1G/250ML KIT 250 ML IV SCH ×3 (05:52→20:08)
[2020-04-08] MEDS: INSULIN HUMULIN R 100 UNIT/ML 3ML SQ SCH ×3 (05:53→18:00)
[2020-04-08] MEDS: LEVOTHYROXINE 50 MCG TABLET PO SCH (06:01)
[2020-04-08 06:33] LABS: HEMATOCRIT 25.1 % (42-54); MEAN CORPUSCULAR HGB CONC 30.7 g/dL (32.0-36.0); MEAN CORPUSCULAR VOLUME 78.2 fL (79-99); RED BLOOD CELL COUNT(AUTO) 3.21 MIL/uL (4.50-6.20); RED CELL DISTRIBUTION WIDTH 17.8 % (11.0-15.5); WHITE BLOOD COUNT (AUTO) 3.5 K/uL (4.8-10.8)
[2020-04-08 06:43] LABS: CREATININE 0.7 mg/dL (0.5-1.5); MAGNESIUM 2.1 mg/dL (1.80-2.40); POTASSIUM 3.8 mmol/L (3.5-5.1)
[2020-04-08] MEDS: Vitamin B Complex/Vit C/Folic Acid PO SCH (09:00)
[2020-04-08 09:23] VITALS: BP 120/66
[2020-04-08] MEDS: DEXTROSE 5%-LACTATED RINGERS 1,000 ML IV SCH ×2 (11:31→20:09)
[2020-04-08] MEDS: FAMOTIDINE 20MG VIAL IV SCH ×2 (11:31→20:08)
[2020-04-08] MEDS: ENOXAPARIN SODIUM 40 MG/0.4 ML SYRINGE SQ SCH (11:33)
[2020-04-08] MEDS: IRON SUCROSE COMPLEX 100 MG in 0.9%NACL 50ML 50 ML IV SCH (11:35)
[2020-04-08] MEDS: FAT EMULSIONS 20% 250ML 250 ML IV SCH (11:35)
[2020-04-08] MEDS: FLUCONAZOLE 400 MG/NS 200 ML 200 ML IV SCH (11:35)
[2020-04-08] MEDS: DiphenhydrAMINE HCL 50 MG/ML VIAL IV SCH (14:15)
[2020-04-08 14:28] VITALS: BP 132/69
[2020-04-08] MEDS ORDERED: HONEY 1 APPL/ML TUBE TP ONE (15:49)
[2020-04-08] MEDS: PROCALAMINE IV SOLUTION 1,000 ML IV SCH ×2 (16:00→18:49)
[2020-04-08 16:34] VITALS: BP 128/71
[2020-04-08 20:16] VITALS: BP 141/70
[2020-04-09 00:12] VITALS: BP 128/69
[2020-04-09] MEDS: DEXTROSE 5%-LACTATED RINGERS 1,000 ML IV SCH ×3 (03:00→23:00)
[2020-04-09] MEDS: MEROPENEM 500 MG VIAL IVP SCH ×3 (03:43→20:29)
[2020-04-09 04:12] VITALS: BP 138/73
[2020-04-09 05:12] LABS: BASOPHILS % (AUTO) 0.6 % (0.0-5.0); EOSINOPHILS % (AUTO) 3.5 % (0.0-8.0); HEMATOCRIT 25.1 % (42-54); LYMPHOCYTES % (AUTO) 40.3 % (21.0-51.0); MEAN CORPUSCULAR HEMOGLOBIN 23.8 pg (27.0-33.0); MEAN CORPUSCULAR HGB CONC 29.9 g/dL (32.0-36.0); MEAN CORPUSCULAR VOLUME 79.7 fL (79-99); MONOCYTES % (AUTO) 12.4 % (3.0-13.0); NEUTROPHILS % (AUTO) 41.2 % (40.0-77.0); PLATELET COUNT (AUTO) 129 K/uL (130-400); RED BLOOD CELL COUNT(AUTO) 3.15 MIL/uL (4.50-6.20); RED CELL DISTRIBUTION WIDTH 18.4 % (11.0-15.5); WHITE BLOOD COUNT (AUTO) 3.5 K/uL (4.8-10.8)
[2020-04-09 05:41] LABS: ALBUMIN 2.3 g/dL (3.5-5.0); BILIRUBIN,TOTAL 0.2 mg/dL (0.2-1.0); CREATININE 0.6 mg/dL (0.5-1.5); POTASSIUM 3.7 mmol/L (3.5-5.1); TOTAL PROTEIN, SERUM 7.3 g/dL (6.0-8.3)
[2020-04-09] MEDS: INSULIN HUMULIN R 100 UNIT/ML 3ML SQ SCH ×4 (05:59→18:00)
[2020-04-09] MEDS: VANCOMYCIN 1G/250ML KIT 250 ML IV SCH ×3 (06:00→20:29)
[2020-04-09] MEDS: LEVOTHYROXINE 50 MCG TABLET PO SCH ×3 (06:00→18:32)
[2020-04-09] MEDS: Vitamin B Complex/Vit C/Folic Acid PO SCH (09:00)
[2020-04-09] MEDS: FAMOTIDINE 20MG VIAL IV SCH ×2 (09:12→20:29)
[2020-04-09] MEDS: ENOXAPARIN SODIUM 40 MG/0.4 ML SYRINGE SQ SCH (09:13)
[2020-04-09] MEDS: IRON SUCROSE COMPLEX 100 MG in 0.9%NACL 50ML 50 ML IV SCH (09:14)
[2020-04-09 09:46] VITALS: BP 121/77
[2020-04-09] MEDS: FLUCONAZOLE 400 MG/NS 200 ML 200 ML IV SCH (10:07)
[2020-04-09 13:50] VITALS: BP 123/49
[2020-04-09] MEDS: DiphenhydrAMINE HCL 50 MG/ML VIAL IV SCH (14:15)
[2020-04-09] MEDS: HONEY 1 APPL/ML TUBE TP SCH (14:41)
[2020-04-09 19:20] VITALS: BP 130/51
[2020-04-09 20:18] VITALS: BP 106/70
[2020-04-09] MEDS: PROCALAMINE IV SOLUTION 1,000 ML IV SCH (20:28)
[2020-04-09] MEDS: FAT EMULSIONS 20% 250ML 250 ML IV SCH (20:29)
[2020-04-10 00:45] VITALS: BP 128/59
[2020-04-10 04:20] LABS: BASOPHILS % (AUTO) 0.3 % (0.0-5.0); HEMATOCRIT 25.3 % (42-54); LYMPHOCYTES % (AUTO) 41.7 % (21.0-51.0); MEAN CORPUSCULAR HEMOGLOBIN 24.1 pg (27.0-33.0); MEAN CORPUSCULAR VOLUME 80.3 fL (79-99); MONOCYTES % (AUTO) 11.8 % (3.0-13.0); NEUTROPHILS % (AUTO) 42.1 % (40.0-77.0); PLATELET COUNT (AUTO) 231 K/uL (130-400); RED BLOOD CELL COUNT(AUTO) 3.15 MIL/uL (4.50-6.20); RED CELL DISTRIBUTION WIDTH 18.9 % (11.0-15.5); WHITE BLOOD COUNT (AUTO) 3.7 K/uL (4.8-10.8)
[2020-04-10 04:29] LABS: ALBUMIN 2.3 g/dL (3.5-5.0); BILIRUBIN,TOTAL 0.2 mg/dL (0.2-1.0); CREATININE 0.7 mg/dL (0.5-1.5); POTASSIUM 3.7 mmol/L (3.5-5.1); TOTAL PROTEIN, SERUM 7.1 g/dL (6.0-8.3)
[2020-04-10] MEDS: MEROPENEM 500 MG VIAL IVP SCH ×3 (05:03→21:12)
[2020-04-10] MEDS: VANCOMYCIN 1G/250ML KIT 250 ML IV SCH ×3 (05:03→22:16)
[2020-04-10] MEDS: INSULIN HUMULIN R 100 UNIT/ML 3ML SQ SCH ×4 (05:26→18:00)
[2020-04-10 05:56] VITALS: BP 116/59
[2020-04-10] MEDS: FAMOTIDINE 20MG VIAL IV SCH ×2 (08:45→21:12)
[2020-04-10] MEDS: FLUCONAZOLE 400 MG/NS 200 ML 200 ML IV SCH (08:45)
[2020-04-10] MEDS: Vitamin B Complex/Vit C/Folic Acid PO SCH (08:45)
[2020-04-10] MEDS: ENOXAPARIN SODIUM 40 MG/0.4 ML SYRINGE SQ SCH (08:47)
[2020-04-10] MEDS: DEXTROSE 5%-LACTATED RINGERS 1,000 ML IV SCH ×2 (09:00→19:00)
[2020-04-10] MEDS: HONEY 1 APPL/ML TUBE TP SCH (09:02)
[2020-04-10] MEDS: IRON SUCROSE COMPLEX 100 MG in 0.9%NACL 50ML 50 ML IV SCH (09:53)
[2020-04-10 13:39] VITALS: BP 138/68
[2020-04-10] MEDS: DiphenhydrAMINE HCL 50 MG/ML VIAL IV SCH (14:15)
[2020-04-10 17:38] VITALS: BP 120/63
[2020-04-10] MEDS: PROCALAMINE IV SOLUTION 1,000 ML IV SCH (18:47)
[2020-04-10 20:00] VITALS: BP 137/65
[2020-04-10] MEDS: FAT EMULSIONS 20% 250ML 250 ML IV SCH (21:12)
[2020-04-11] VITALS: BP 120/63
[2020-04-11] MEDS: DEXTROSE 5%-LACTATED RINGERS 1,000 ML IV SCH (02:31)
[2020-04-11 04:00] VITALS: BP 133/59
[2020-04-11] MEDS: VANCOMYCIN 1G/250ML KIT 250 ML IV SCH ×3 (05:26→21:27)
[2020-04-11] MEDS: MEROPENEM 500 MG VIAL IVP SCH ×3 (05:26→21:26)
[2020-04-11] MEDS: LEVOTHYROXINE 50 MCG TABLET PO SCH (06:10)
[2020-04-11] MEDS: INSULIN HUMULIN R 100 UNIT/ML 3ML SQ SCH ×4 (06:11→21:00)
[2020-04-11 08:00] VITALS: BP 133/65
[2020-04-11] MEDS: FLUCONAZOLE 400 MG/NS 200 ML 200 ML IV SCH (10:14)
[2020-04-11] MEDS: IRON SUCROSE COMPLEX 100 MG in 0.9%NACL 50ML 50 ML IV SCH (10:15)
[2020-04-11] MEDS: Vitamin B Complex/Vit C/Folic Acid PO SCH (10:15)
[2020-04-11] MEDS: FAMOTIDINE 20MG VIAL IV SCH ×2 (10:15→21:26)
[2020-04-11] MEDS: ENOXAPARIN SODIUM 40 MG/0.4 ML SYRINGE SQ SCH (10:16)
[2020-04-11] MEDS: HONEY 1 APPL/ML TUBE TP SCH (10:16)
[2020-04-11 12:00] VITALS: BP 137/70
[2020-04-11 13:08] LABS: HEMATOCRIT 25.4 % (42-54); MEAN CORPUSCULAR HEMOGLOBIN 25.1 pg (27.0-33.0); MEAN CORPUSCULAR HGB CONC 30.7 g/dL (32.0-36.0); MEAN CORPUSCULAR VOLUME 81.7 fL (79-99); PLATELET COUNT (AUTO) 191 K/uL (130-400); RED BLOOD CELL COUNT(AUTO) 3.11 MIL/uL (4.50-6.20); WHITE BLOOD COUNT (AUTO) 3.8 K/uL (4.8-10.8)
[2020-04-11 13:17] LABS: CREATININE 0.7 mg/dL (0.5-1.5); POTASSIUM 3.9 mmol/L (3.5-5.1)
[2020-04-11] MEDS: DiphenhydrAMINE HCL 50 MG/ML VIAL IV SCH (14:14)
[2020-04-11 14:33] LABS: EOSINOPHILS % (MANUAL) 1 % (1-6); LYMPHOCYTES % (MANUAL) 44 % (22-44); MONOCYTES % (MANUAL) 4 % (2-9); SEGMENTED NEUTROPHILS % 51 % (40-70)
[2020-04-11 14:34] LABS: MAN.DIFF COMMENT-IMPRESSION MANUAL DIFFERENTIAL; PLATELET MORPHOLOGY COMMENT ADEQUATE
[2020-04-11 16:00] VITALS: BP 160/73
[2020-04-11 20:00] VITALS: BP 127/59
[2020-04-12] VITALS (7 sets, daily range): BP systolic 120–136; BP diastolic 53–67
[2020-04-12] MEDS: LEVOTHYROXINE 50 MCG TABLET PO SCH (05:40)
[2020-04-12] MEDS: VANCOMYCIN 1G/250ML KIT 250 ML IV SCH ×3 (05:40→20:55)
[2020-04-12] MEDS: MEROPENEM 500 MG VIAL IVP SCH ×3 (05:40→20:55)
[2020-04-12] MEDS: INSULIN HUMULIN R 100 UNIT/ML 3ML SQ SCH ×4 (05:41→20:56)
[2020-04-12] MEDS: HONEY 1 APPL/ML TUBE TP SCH (09:03)
[2020-04-12] MEDS: FLUCONAZOLE 400 MG/NS 200 ML 200 ML IV SCH (09:03)
[2020-04-12] MEDS: FAMOTIDINE 20MG VIAL IV SCH ×2 (09:03→20:55)
[2020-04-12] MEDS: Vitamin B Complex/Vit C/Folic Acid PO SCH (09:03)
[2020-04-12] MEDS: ENOXAPARIN SODIUM 40 MG/0.4 ML SYRINGE SQ SCH (09:04)
[2020-04-12] MEDS: IRON SUCROSE COMPLEX 100 MG in 0.9%NACL 50ML 50 ML IV SCH (09:55)
[2020-04-12] MEDS: DiphenhydrAMINE HCL 50 MG/ML VIAL IV SCH (14:15)
[2020-04-13 04:07] VITALS: BP 137/62
[2020-04-13] MEDS: INSULIN HUMULIN R 100 UNIT/ML 3ML SQ SCH ×3 (05:06→16:30)
[2020-04-13] MEDS: LEVOTHYROXINE 50 MCG TABLET PO SCH (06:04)
[2020-04-13] MEDS: MEROPENEM 500 MG VIAL IVP SCH ×2 (06:04→13:29)
[2020-04-13] MEDS: VANCOMYCIN 1G/250ML KIT 250 ML IV SCH ×2 (06:05→14:40)
[2020-04-13 08:00] VITALS: BP 138/61
[2020-04-13] MEDS: FAMOTIDINE 20MG VIAL IV SCH (08:33)
[2020-04-13] MEDS: Vitamin B Complex/Vit C/Folic Acid PO SCH (08:33)
[2020-04-13] MEDS: ENOXAPARIN SODIUM 40 MG/0.4 ML SYRINGE SQ SCH (08:34)
[2020-04-13] MEDS: IRON SUCROSE COMPLEX 100 MG in 0.9%NACL 50ML 50 ML IV SCH (08:34)
[2020-04-13] MEDS: HONEY 1 APPL/ML TUBE TP SCH (08:38)
[2020-04-13] MEDS: FLUCONAZOLE 400 MG/NS 200 ML 200 ML IV SCH (10:51)
[2020-04-13 11:00] VITALS: BP 139/63
[2020-04-13] MEDS: DiphenhydrAMINE HCL 50 MG/ML VIAL IV SCH (14:15)
[2020-04-13 14:51] VITALS: BP 133/59
== END 2020-04-13 20:06 | disposition home or self-care (01) | DRG 919 ==
LOC: EDH 11:44 → EDHIP 14:06 → 4CH 04-04 01:22 → 3DH 04-06 17:34
PROVIDERS: ADMIT Internal Medicine Critical Care Medicine; ATTEND Internal Medicine Critical Care Medicine
PROC: 05HY33Z Insertion of Infusion Device into Upper Vein, Percutaneous Approach (ICD-10-PCS; principal; 2020-04-02)
DX: T81.31XA Disruption of external operation (surgical) wound, not elsewhere classified, initial encounter (principal); K65.1 Peritoneal abscess; T88.6XXA Anaphylactic reaction due to adverse effect of correct drug or medicament properly administered, initial encounter; E87.1 Hypo-osmolality and hyponatremia; C18.9 Malignant neoplasm of colon, unspecified; K63.2 Fistula of intestine; M62.82 Rhabdomyolysis; T36.0X5A Adverse effect of penicillins, initial encounter; D64.9 Anemia, unspecified; E86.0 Dehydration; Z88.8 Allergy status to other drugs, medicaments and biological substances; Y92.89 Other specified places as the place of occurrence of the external cause; E16.2 Hypoglycemia, unspecified; E66.9 Obesity, unspecified; Z68.24 Body mass index [BMI] 24.0-24.9, adult; R53.81 Other malaise; K52.9 Noninfective gastroenteritis and colitis, unspecified; Z85.038 Personal history of other malignant neoplasm of large intestine; Z90.49 Acquired absence of other specified parts of digestive tract; Z93.3 Colostomy status; Z20.822 Contact with and (suspected) exposure to COVID-19; E87.8 Other disorders of electrolyte and fluid balance, not elsewhere classified
CPT/HCPCS: 36415; 71045; 74177; 76080; 80048; 80053; 80061; 80202; 81001; 82150; 82550; 82607; 82728; 82746; 82948; 83036; 83540; 83550; 83605; 83690; 83735; 83874; 83930; 83935; 84100; 84145; 84300; 84443; 84484; 84550; 85025; 85027; 85610; 85651; 85730; 86038; 86140; 86215; 86235; 86255; 86850; 86900; 86901; 87040; 87088; 87426; 93005; 97039; C1894; G0378; J0171; J1200; J1450; J1650; J1756; J1956; J2185; J2270; J2543; J2930; J3370; J3480; J3490; J7030; J7120; Q9963; Q9967; U0003

== ENCOUNTER → 2020-04-02 | Outpatient (CLI) | payer OTHER ==
[~2020-04-02] MED LIST changes: -LIDOCAINE HCL 2% JELLY 5 ML TP ONE
== END | disposition home or self-care (01) ==
LOC: WHH 10:45
PROVIDERS: ATTEND Family Medicine
DX: K94.09 Other complications of colostomy (principal); K21.9 Gastro-esophageal reflux disease without esophagitis; K91.89 Other postprocedural complications and disorders of digestive system; Z85.060 Personal history of malignant carcinoid tumor of small intestine; Z86.73 Personal history of transient ischemic attack (TIA), and cerebral infarction without residual deficits; Y83.8 Other surgical procedures as the cause of abnormal reaction of the patient, or of later complication, without mention of misadventure at the time of the procedure
CPT/HCPCS: 99211

== ENCOUNTER → 2020-04-17 | Outpatient (CLI) | payer OTHER ==
[~2020-04-17] MED LIST changes: +AMOX-426 PO; +TRAM50TA4 PO
== END | disposition home or self-care (01) ==
LOC: WHH 09:00
PROVIDERS: ATTEND Family Medicine
DX: T81.32XD Disruption of internal operation (surgical) wound, not elsewhere classified, subsequent encounter (principal); E11.9 Type 2 diabetes mellitus without complications; E66.9 Obesity, unspecified; K21.9 Gastro-esophageal reflux disease without esophagitis; Z85.060 Personal history of malignant carcinoid tumor of small intestine; Z86.73 Personal history of transient ischemic attack (TIA), and cerebral infarction without residual deficits; Y83.8 Other surgical procedures as the cause of abnormal reaction of the patient, or of later complication, without mention of misadventure at the time of the procedure; Z90.49 Acquired absence of other specified parts of digestive tract; Z68.26 Body mass index [BMI] 26.0-26.9, adult
CPT/HCPCS: 87070; 87077; 87186; 99214

== ENCOUNTER 2020-04-18 00:24 | Inpatient (IN) | payer OTHER ==
[~2020-04-18] VITALS: Ht 185.4 cm; Wt 75.7 kg
[2020-04-18] MEDS ORDERED: ONDANSETRON 4MG INJ ONE (00:50)
[2020-04-18] MEDS ORDERED: MORPHINE 4 MG SYG ONE (00:58)
[2020-04-18] MEDS ORDERED: 0.9%NACL 1000ML 1,000 ML IV ONE (01:05)
[2020-04-18] MEDS ORDERED: FAMOTIDINE 20MG VIAL IV ONE (01:05)
[2020-04-18 01:15] LABS: CREATININE 0.8 mg/dL (0.5-1.5); POTASSIUM 4.3 mmol/L (3.5-5.1)
[2020-04-18 01:17] LABS: INR 1.12 (0.85-1.15); PROTHROMBIN TIME 12.1 SEC (9.6-11.6)
[2020-04-18 01:19] LABS: ALBUMIN 3.3 g/dL (3.5-5.0); BILIRUBIN,TOTAL 0.4 mg/dL (0.2-1.0); PARTIAL THROMBOPLASTIN TIME 31.3 SEC (26.3-35.5); TOTAL PROTEIN, SERUM 8.5 g/dL (6.0-8.3)
[2020-04-18 01:34] LABS: BASOPHILS % (AUTO) 0.2 % (0.0-5.0); EOSINOPHILS % (AUTO) 0.4 % (0.0-8.0); HEMATOCRIT 32.8 % (42-54); LYMPHOCYTES % (AUTO) 20.1 % (21.0-51.0); MEAN CORPUSCULAR HEMOGLOBIN 25.6 pg (27.0-33.0); MEAN CORPUSCULAR HGB CONC 30.5 g/dL (32.0-36.0); MEAN CORPUSCULAR VOLUME 84.1 fL (79-99); MONOCYTES % (AUTO) 4.8 % (3.0-13.0); NEUTROPHILS % (AUTO) 74.1 % (40.0-77.0); PLATELET COUNT (AUTO) 285 K/uL (130-400); RED CELL DISTRIBUTION WIDTH 24.8 % (11.0-15.5); WHITE BLOOD COUNT (AUTO) 13.2 K/uL (4.8-10.8)
[2020-04-18] MEDS ORDERED: MEPERIDINE-PF 50 MG/ML SYG ONE (03:05)
[2020-04-18 03:16] LABS: BILIRUBIN,URINE Negative (NEGATIVE); COLOR,URINE Yellow (YELLOW); GLUCOSE, URINE (UA) Negative (NEGATIVE); KETONES,URINE Negative (NEGATIVE); LEUKOCYTE ESTERASE ,URINE Negative (NEGATIVE); NITRATE,URINE Negative (NEGATIVE); OCCULT BLOOD,URINE Negative (NEGATIVE); PROTEIN,URINE Negative (NEGATIVE); UROBILINOGEN,URINE 0.2 mg/dL (0.2-1.0)
[2020-04-18 03:20] LABS: APPEARANCE,URINE CLEAR (CLEAR)
[2020-04-18] MEDS ORDERED: HYDROMORPHONE 0.5 MG SYG (0.5MG/0.5ML) ONE (06:35)
[2020-04-18] MEDS ORDERED: ONDANSETRON 4MG INJ IVP PRN (07:30)
[2020-04-18] MEDS ORDERED: ACETAMINOPHEN 650 MG SUPPOSITORY RC PRN (07:30)
[2020-04-18] MEDS ORDERED: LACTATED RINGERS 1000ML 1,000 ML IV SCH (07:30)
[2020-04-18] MEDS ORDERED: PANTOPRAZOLE 40 MG TAB DR PO SCH (07:30)
[2020-04-18 08:45] VITALS: BP 133/75
[2020-04-18] MEDS ORDERED: PANTOPRAZOLE 40 MG/VIAL IVP SCH ×2 (09:00→13:15)
[2020-04-18] MEDS: HYDROMORPHONE 0.5 MG SYG (0.5MG/0.5ML) IVP PRN ×3 (09:36→21:55)
[2020-04-18 12:00] VITALS: BP 126/65
[2020-04-18] MEDS ORDERED: VANCOMYCIN PROTOCOL PER PHARMACY IV SCH (15:00)
[2020-04-18] MEDS ORDERED: COMPOUND IV REFRIGERATED 1 EACH IVSOLN MISC PRN (15:15)
[2020-04-18 16:00] VITALS: BP 137/64
[2020-04-18] MEDS ORDERED: VANCOMYCIN 1G 2 GM in 0.9% NACL 500ML IV.SOLN 500 ML IV ONE (16:00)
[2020-04-18 19:42] VITALS: BP 137/61
[2020-04-18] MEDS: VANCOMYCIN 1G 1.25 GM in 0.9% NACL 250ML 250 ML IV SCH (23:32)
[2020-04-18] MEDS: DEXTROSE 5%-LACTATED RINGERS 1,000 ML IV SCH (23:33)
[2020-04-18 23:41] VITALS: BP 94/53
[2020-04-19 03:52] VITALS: BP 110/53
[2020-04-19] MEDS: DEXTROSE 5%-LACTATED RINGERS 1,000 ML IV SCH ×3 (04:05→22:00)
[2020-04-19 06:26] LABS: HEMATOCRIT 28.6 % (42-54); MEAN CORPUSCULAR HEMOGLOBIN 26.2 pg (27.0-33.0); MEAN CORPUSCULAR HGB CONC 31.1 g/dL (32.0-36.0); MEAN CORPUSCULAR VOLUME 84.1 fL (79-99); PLATELET COUNT (AUTO) 231 K/uL (130-400); RED CELL DISTRIBUTION WIDTH 24.5 % (11.0-15.5); WHITE BLOOD COUNT (AUTO) 7.9 K/uL (4.8-10.8)
[2020-04-19 06:44] LABS: CREATININE 0.7 mg/dL (0.5-1.5); MAGNESIUM 1.8 mg/dL (1.80-2.40); POTASSIUM 4.2 mmol/L (3.5-5.1)
[2020-04-19 08:00] VITALS: BP 148/84
[2020-04-19] MEDS: VANCOMYCIN 1G 1.25 GM in 0.9% NACL 250ML 250 ML IV SCH (08:00)
[2020-04-19] MEDS: HYDROMORPHONE 0.5 MG SYG (0.5MG/0.5ML) IVP PRN ×2 (10:55→20:12)
[2020-04-19] MEDS: HONEY 1 APPL/ML TUBE TP SCH (10:56)
[2020-04-19] MEDS: PANTOPRAZOLE 40 MG/VIAL IVP SCH (10:56)
[2020-04-19] MEDS ORDERED: CEFEPIME HCL 1 GM VIAL IVP SCH (12:00)
[2020-04-19 12:09] VITALS: BP 127/59
[2020-04-19] MEDS ORDERED: DIATR MEGLU/DIATRIZOATE SODIUM 30 ML BOTTLE ONE (12:52)
[2020-04-19] MEDS: CLINDAMYCIN IVPB 600MG/50ML 50 ML IV SCH ×2 (14:12→22:00)
[2020-04-19] MEDS: CEFTAZIDIME PENTAHYDRATE 1 GM/VIAL IVP SCH ×2 (14:12→22:00)
[2020-04-19] MEDS ORDERED: IOHEXOL 350 MG/ML 100ML INFUS..BTL IV ONE (15:56)
[2020-04-19 16:00] VITALS: BP 143/51
[2020-04-19 19:46] VITALS: BP 128/65
[2020-04-20] VITALS (7 sets, daily range): BP systolic 111–166; BP diastolic 56–72
[2020-04-20 05:53] LABS: HEMATOCRIT 29.1 % (42-54); MEAN CORPUSCULAR HEMOGLOBIN 25.8 pg (27.0-33.0); MEAN CORPUSCULAR HGB CONC 30.2 g/dL (32.0-36.0); MEAN CORPUSCULAR VOLUME 85.3 fL (79-99); PLATELET COUNT (AUTO) 247 K/uL (130-400); RED BLOOD CELL COUNT(AUTO) 3.41 MIL/uL (4.50-6.20); RED CELL DISTRIBUTION WIDTH 23.9 % (11.0-15.5); WHITE BLOOD COUNT (AUTO) 4.2 K/uL (4.8-10.8)
[2020-04-20 06:27] LABS: CREATININE 0.8 mg/dL (0.5-1.5); POTASSIUM 4.3 mmol/L (3.5-5.1)
[2020-04-20 06:37] LABS: BAND NEUTROPHILS % (MANUAL) 2 % (0-2); BASOPHILS % (MANUAL) 2 % (0-2); EOSINOPHILS % (MANUAL) 4 % (1-6); LYMPHOCYTES % (MANUAL) 22 % (22-44); MAN.DIFF COMMENT-IMPRESSION MANUAL DIFFERENTIAL; MONOCYTES % (MANUAL) 4 % (2-9); REACTIVE LYMPHOCYTES 4 % (0-0); SEGMENTED NEUTROPHILS % 62 % (40-70)
[2020-04-20] MEDS: CLINDAMYCIN IVPB 600MG/50ML 50 ML IV SCH ×3 (07:00→21:44)
[2020-04-20] MEDS: CEFTAZIDIME PENTAHYDRATE 1 GM/VIAL IVP SCH ×3 (07:00→21:44)
[2020-04-20] MEDS: HONEY 1 APPL/ML TUBE TP SCH ×2 (09:45→21:44)
[2020-04-20] MEDS: PANTOPRAZOLE 40 MG/VIAL IVP SCH (13:02)
[2020-04-20] MEDS: DEXTROSE 5%-LACTATED RINGERS 1,000 ML IV SCH (13:04)
[2020-04-20] MEDS ORDERED: DIATR MEGLU/DIATRIZOATE SODIUM 30 ML BOTTLE ONE (13:54)
[2020-04-20] MEDS: HYDROMORPHONE 0.5 MG SYG (0.5MG/0.5ML) IVP PRN (21:53)
[2020-04-21 03:53] VITALS: BP 110/62
[2020-04-21] MEDS: CLINDAMYCIN IVPB 600MG/50ML 50 ML IV SCH ×3 (05:14→22:06)
[2020-04-21] MEDS: CEFTAZIDIME PENTAHYDRATE 1 GM/VIAL IVP SCH ×3 (05:14→22:06)
[2020-04-21] MEDS: DEXTROSE 5%-LACTATED RINGERS 1,000 ML IV SCH ×2 (05:14→22:45)
[2020-04-21 07:21] VITALS: BP 121/66
[2020-04-21] MEDS: PANTOPRAZOLE 40 MG/VIAL IVP SCH (09:00)
[2020-04-21] MEDS: HONEY 1 APPL/ML TUBE TP SCH (09:45)
[2020-04-21 11:36] VITALS: BP 125/62
[2020-04-21 16:08] VITALS: BP 123/68
[2020-04-21 20:00] VITALS: BP 118/58
[2020-04-21] MEDS: ENOXAPARIN SODIUM 80 MG/0.8 ML SQ SCH (20:52)
[2020-04-21 23:36] VITALS: BP 121/63
[2020-04-22] MEDS: HYDROMORPHONE 0.5 MG SYG (0.5MG/0.5ML) IVP PRN (00:24)
[2020-04-22 04:00] VITALS: BP 106/58
[2020-04-22] MEDS: CLINDAMYCIN IVPB 600MG/50ML 50 ML IV SCH ×3 (05:07→21:01)
[2020-04-22] MEDS: CEFTAZIDIME PENTAHYDRATE 1 GM/VIAL IVP SCH ×3 (05:57→21:01)
[2020-04-22 05:58] LABS: INR 1.22 (0.85-1.15); PROTHROMBIN TIME 13.1 SEC (9.6-11.6)
[2020-04-22 08:00] VITALS: BP 119/56
[2020-04-22] MEDS ORDERED: LIDOCAINE HCL-MPF 1% 2ML VIAL IV PRN (08:00)
[2020-04-22] MEDS ORDERED: POTASSIUM CHLORIDE 20MEQ/100ML 100 ML IV PRN (08:00)
[2020-04-22] MEDS: ENOXAPARIN SODIUM 80 MG/0.8 ML SQ SCH ×2 (09:00→21:02)
[2020-04-22 09:15] LABS: HEMATOCRIT 28.1 % (42-54); MEAN CORPUSCULAR HEMOGLOBIN 26.2 pg (27.0-33.0); MEAN CORPUSCULAR HGB CONC 31.7 g/dL (32.0-36.0); MEAN CORPUSCULAR VOLUME 82.6 fL (79-99); PLATELET COUNT (AUTO) 249 K/uL (130-400); RED CELL DISTRIBUTION WIDTH 22.8 % (11.0-15.5); WHITE BLOOD COUNT (AUTO) 2.6 K/uL (4.8-10.8)
[2020-04-22] MEDS ORDERED: HONEY 1 APPL/ML TUBE TP SCH (09:15)
[2020-04-22 09:19] LABS: CREATININE 0.8 mg/dL (0.5-1.5); MAGNESIUM 1.6 mg/dL (1.80-2.40); POTASSIUM 3.5 mmol/L (3.5-5.1)
[2020-04-22 09:59] LABS: EOSINOPHILS % (MANUAL) 3 % (1-6); LYMPHOCYTES % (MANUAL) 70 % (22-44); MAN.DIFF COMMENT-IMPRESSION MANUAL DIFFERENTIAL; MONOCYTES % (MANUAL) 7 % (2-9); PLATELET MORPHOLOGY COMMENT ADEQUATE; SEGMENTED NEUTROPHILS % 20 % (40-70)
[2020-04-22] MEDS: HONEY 1 APPL/ML TUBE TP SCH (10:07)
[2020-04-22] MEDS: PANTOPRAZOLE 40 MG/VIAL IVP SCH (10:07)
[2020-04-22] MEDS: MAGNESIUM 2GM PREMIX 50ML 50 ML IV PRN (10:13)
[2020-04-22 11:48] VITALS: BP 124/71
[2020-04-22 16:00] VITALS: BP 126/48
[2020-04-22] MEDS: DEXTROSE 5%-LACTATED RINGERS 1,000 ML IV SCH (16:25)
[2020-04-22 20:38] VITALS: BP 112/62
[2020-04-23 00:17] VITALS: BP 112/59
[2020-04-23] MEDS: HYDROMORPHONE 0.5 MG SYG (0.5MG/0.5ML) IVP PRN (01:24)
[2020-04-23 04:06] VITALS: BP 101/50
[2020-04-23 04:24] LABS: MEAN CORPUSCULAR HGB CONC 32.2 g/dL (32.0-36.0); MEAN CORPUSCULAR VOLUME 80.8 fL (79-99); RED BLOOD CELL COUNT(AUTO) 3.34 MIL/uL (4.50-6.20); RED CELL DISTRIBUTION WIDTH 22.1 % (11.0-15.5)
[2020-04-23 04:34] LABS: CREATININE 0.9 mg/dL (0.5-1.5); MAGNESIUM 1.9 mg/dL (1.80-2.40); POTASSIUM 3.5 mmol/L (3.5-5.1)
[2020-04-23] MEDS: DEXTROSE 5%-LACTATED RINGERS 1,000 ML IV SCH ×2 (04:38→10:34)
[2020-04-23] MEDS: CLINDAMYCIN IVPB 600MG/50ML 50 ML IV SCH ×3 (05:38→20:37)
[2020-04-23] MEDS: CEFTAZIDIME PENTAHYDRATE 1 GM/VIAL IVP SCH ×3 (05:38→20:37)
[2020-04-23 08:00] VITALS: BP 129/56
[2020-04-23] MEDS: PANTOPRAZOLE 40 MG/VIAL IVP SCH (10:34)
[2020-04-23] MEDS: ENOXAPARIN SODIUM 80 MG/0.8 ML SQ SCH ×2 (10:35→20:36)
[2020-04-23] MEDS: HONEY 1 APPL/ML TUBE TP SCH (10:35)
[2020-04-23 12:04] VITALS: BP 157/66
[2020-04-23 16:57] VITALS: BP 159/95
[2020-04-23 20:46] VITALS: BP 114/75
[2020-04-23] MEDS: ACETAMINOPHEN 325 MG TAB PO PRN (21:36)
[2020-04-24] VITALS (7 sets, daily range): BP systolic 120–133; BP diastolic 52–71
[2020-04-24] MEDS: DEXTROSE 5%-LACTATED RINGERS 1,000 ML IV SCH ×2 (03:43→17:26)
[2020-04-24 04:44] LABS: HEMATOCRIT 28.9 % (42-54); MEAN CORPUSCULAR HGB CONC 31.8 g/dL (32.0-36.0); MEAN CORPUSCULAR VOLUME 81.6 fL (79-99); RED BLOOD CELL COUNT(AUTO) 3.54 MIL/uL (4.50-6.20); RED CELL DISTRIBUTION WIDTH 21.9 % (11.0-15.5)
[2020-04-24 05:05] LABS: CREATININE 0.8 mg/dL (0.5-1.5); MAGNESIUM 1.8 mg/dL (1.80-2.40); POTASSIUM 3.4 mmol/L (3.5-5.1)
[2020-04-24] MEDS ORDERED: POTASSIUM CHLORIDE 20MEQ/100ML 100 ML IV PRN (05:15)
[2020-04-24] MEDS ORDERED: LIDOCAINE HCL-MPF 1% 2ML VIAL IV PRN (05:15)
[2020-04-24] MEDS ORDERED: POTASSIUM CHLORIDE 10% ELIXIR 20 MEQ/15 ML UDCUP PO PRN (05:15)
[2020-04-24] MEDS: MAGNESIUM 2GM PREMIX 50ML 50 ML IV PRN (05:25)
[2020-04-24] MEDS: CLINDAMYCIN IVPB 600MG/50ML 50 ML IV SCH ×3 (05:25→20:40)
[2020-04-24] MEDS: CEFTAZIDIME PENTAHYDRATE 1 GM/VIAL IVP SCH ×3 (05:25→20:40)
[2020-04-24] MEDS: POTASSIUM CHLORIDE 10% ELIXIR 20 MEQ/15 ML UDCUP ONE ×2 (05:26→05:39)
[2020-04-24] MEDS: KCL 20 MEQ ERTAB PO PRN ×2 (05:41→15:08)
[2020-04-24] MEDS: PANTOPRAZOLE 40 MG/VIAL IVP SCH (09:07)
[2020-04-24] MEDS: ENOXAPARIN SODIUM 80 MG/0.8 ML SQ SCH ×2 (09:07→20:40)
[2020-04-24] MEDS ORDERED: KETOROLAC 30MG VIAL (30MG/ML) IV PRN (21:15)
[2020-04-25 05:14] VITALS: BP 138/69
[2020-04-25] MEDS: HYDROMORPHONE 0.5 MG SYG (0.5MG/0.5ML) IVP PRN ×3 (05:29→21:38)
[2020-04-25] MEDS: CEFTAZIDIME PENTAHYDRATE 1 GM/VIAL IVP SCH ×3 (06:12→21:28)
[2020-04-25] MEDS: CLINDAMYCIN IVPB 600MG/50ML 50 ML IV SCH ×3 (06:12→21:28)
[2020-04-25 06:27] LABS: CREATININE 0.7 mg/dL (0.5-1.5); POTASSIUM 3.9 mmol/L (3.5-5.1)
[2020-04-25] MEDS: DEXTROSE 5%-LACTATED RINGERS 1,000 ML IV SCH ×2 (06:45→21:28)
[2020-04-25 08:00] VITALS: BP 124/62
[2020-04-25] MEDS: ENOXAPARIN SODIUM 80 MG/0.8 ML SQ SCH ×2 (09:00→21:46)
[2020-04-25] MEDS: PANTOPRAZOLE 40 MG/VIAL IVP SCH (09:55)
[2020-04-25 10:01] LABS: INR 1.24 (0.85-1.15); PROTHROMBIN TIME 13.3 SEC (9.6-11.6)
[2020-04-25 11:00] VITALS: BP 163/93
[2020-04-25 16:00] VITALS: BP 126/51
[2020-04-25 19:42] VITALS: BP 145/96
[2020-04-25 23:39] VITALS: BP 144/61
[2020-04-26] MEDS: HYDROMORPHONE 0.5 MG SYG (0.5MG/0.5ML) IVP PRN ×4 (01:29→20:52)
[2020-04-26 03:29] VITALS: BP 132/67
[2020-04-26] MEDS: CEFTAZIDIME PENTAHYDRATE 1 GM/VIAL IVP SCH ×3 (05:42→20:11)
[2020-04-26] MEDS: CLINDAMYCIN IVPB 600MG/50ML 50 ML IV SCH ×3 (05:42→20:11)
[2020-04-26 06:11] LABS: HEMATOCRIT 29.8 % (42-54); MEAN CORPUSCULAR HEMOGLOBIN 25.5 pg (27.0-33.0); MEAN CORPUSCULAR HGB CONC 31.9 g/dL (32.0-36.0); MEAN CORPUSCULAR VOLUME 79.9 fL (79-99); RED BLOOD CELL COUNT(AUTO) 3.73 MIL/uL (4.50-6.20); WHITE BLOOD COUNT (AUTO) 8.1 K/uL (4.8-10.8)
[2020-04-26 06:25] LABS: CREATININE 0.7 mg/dL (0.5-1.5); MAGNESIUM 1.5 mg/dL (1.80-2.40); POTASSIUM 3.9 mmol/L (3.5-5.1)
[2020-04-26 07:18] VITALS: BP 119/62
[2020-04-26] MEDS: PANTOPRAZOLE 40 MG/VIAL IVP SCH (09:00)
[2020-04-26] MEDS: DEXTROSE 5%-LACTATED RINGERS 1,000 ML IV SCH ×2 (10:11→20:12)
[2020-04-26] MEDS: ENOXAPARIN SODIUM 80 MG/0.8 ML SQ SCH ×2 (10:11→20:44)
[2020-04-26 10:56] VITALS: BP 134/62
[2020-04-26] MEDS: MAGNESIUM 2GM PREMIX 50ML 50 ML IV PRN (12:50)
[2020-04-26 15:49] VITALS: BP 135/63
[2020-04-26] MEDS ORDERED: CLINIMIX-E 5%AA /D15%W 2000ML 2,000 ML IV SCH (17:00)
[2020-04-26 20:46] VITALS: BP 150/70
[2020-04-27] VITALS (7 sets, daily range): BP systolic 112–126; BP diastolic 50–83
[2020-04-27] MEDS: HYDROMORPHONE 0.5 MG SYG (0.5MG/0.5ML) IVP PRN (04:25)
[2020-04-27 05:09] LABS: CREATININE 0.7 mg/dL (0.5-1.5); POTASSIUM 3.8 mmol/L (3.5-5.1)
[2020-04-27] MEDS: CEFTAZIDIME PENTAHYDRATE 1 GM/VIAL IVP SCH ×3 (05:40→23:40)
[2020-04-27] MEDS: CLINDAMYCIN IVPB 600MG/50ML 50 ML IV SCH ×3 (05:40→23:40)
[2020-04-27] MEDS: PANTOPRAZOLE 40 MG TAB DR PO SCH (09:00)
[2020-04-27] MEDS: ENOXAPARIN SODIUM 80 MG/0.8 ML SQ SCH ×2 (11:13→23:41)
[2020-04-27] MEDS: DEXTROSE 5%-LACTATED RINGERS 1,000 ML IV SCH (12:05)
[2020-04-27] MEDS ORDERED: CLINIMIX-E 5%AA /D15%W 2000ML 2,000 ML IV SCH (21:00)
[2020-04-28] MEDS: HYDROMORPHONE 0.5 MG SYG (0.5MG/0.5ML) IVP PRN ×3 (01:24→21:39)
[2020-04-28] MEDS: DEXTROSE 5%-LACTATED RINGERS 1,000 ML IV SCH ×2 (01:25→14:45)
[2020-04-28 03:55] VITALS: BP 127/61
[2020-04-28] MEDS: CLINDAMYCIN IVPB 600MG/50ML 50 ML IV SCH ×3 (06:19→21:20)
[2020-04-28] MEDS: CEFTAZIDIME PENTAHYDRATE 1 GM/VIAL IVP SCH ×3 (06:20→21:20)
[2020-04-28 06:43] LABS: MEAN CORPUSCULAR HEMOGLOBIN 25.9 pg (27.0-33.0); MEAN CORPUSCULAR HGB CONC 31.4 g/dL (32.0-36.0); MEAN CORPUSCULAR VOLUME 82.6 fL (79-99); RED BLOOD CELL COUNT(AUTO) 3.51 MIL/uL (4.50-6.20); RED CELL DISTRIBUTION WIDTH 21.9 % (11.0-15.5); WHITE BLOOD COUNT (AUTO) 4.2 K/uL (4.8-10.8)
[2020-04-28 06:52] LABS: CREATININE 0.8 mg/dL (0.5-1.5); MAGNESIUM 1.8 mg/dL (1.80-2.40); POTASSIUM 4.2 mmol/L (3.5-5.1)
[2020-04-28 08:00] VITALS: BP 126/53
[2020-04-28] MEDS: PANTOPRAZOLE 40 MG TAB DR PO SCH (09:56)
[2020-04-28] MEDS: ENOXAPARIN SODIUM 80 MG/0.8 ML SQ SCH ×2 (09:57→21:21)
[2020-04-28 11:43] VITALS: BP 125/59
[2020-04-28 16:00] VITALS: BP 141/70
[2020-04-28] MEDS: CLINIMIX-E 5%AA /D15%W 2000ML 2,000 ML IV SCH (19:00)
[2020-04-28 21:02] VITALS: BP 139/68
[2020-04-28] MEDS: MAGNESIUM 2GM PREMIX 50ML 50 ML IV PRN (22:28)
[2020-04-29] VITALS (7 sets, daily range): BP systolic 117–134; BP diastolic 53–65
[2020-04-29] MEDS: CLINIMIX-E 5%AA /D15%W 2000ML 2,000 ML IV SCH (00:15)
[2020-04-29] MEDS: DEXTROSE 5%-LACTATED RINGERS 1,000 ML IV SCH ×2 (03:06→16:38)
[2020-04-29] MEDS: HYDROMORPHONE 0.5 MG SYG (0.5MG/0.5ML) IVP PRN ×2 (03:17→21:00)
[2020-04-29] MEDS: CEFTAZIDIME PENTAHYDRATE 1 GM/VIAL IVP SCH ×3 (04:52→20:58)
[2020-04-29] MEDS: CLINDAMYCIN IVPB 600MG/50ML 50 ML IV SCH ×3 (04:52→20:58)
[2020-04-29] MEDS: PANTOPRAZOLE 40 MG TAB DR PO SCH (09:17)
[2020-04-29] MEDS: ENOXAPARIN SODIUM 80 MG/0.8 ML SQ SCH ×2 (09:18→20:57)
[2020-04-29] MEDS: FAT EMULSIONS 20% 250ML 250 ML IV SCH (09:18)
[2020-04-29] MEDS: CLINIMIX-E 5%AA /D15%W 2000ML 2,000 ML IV NR (23:55)
[2020-04-30] MEDS: HYDROMORPHONE 0.5 MG SYG (0.5MG/0.5ML) IVP PRN ×2 (03:58→22:23)
[2020-04-30 04:02] VITALS: BP 110/57
[2020-04-30 04:19] LABS: BILIRUBIN,TOTAL 0.2 mg/dL (0.2-1.0); CREATININE 0.6 mg/dL (0.5-1.5); MAGNESIUM 1.8 mg/dL (1.80-2.40); PHOSPHORUS 4.3 mg/dL (2.5-4.9); POTASSIUM 3.6 mmol/L (3.5-5.1)
[2020-04-30 04:20] LABS: ALBUMIN 2.6 g/dL (3.5-5.0); TOTAL PROTEIN, SERUM 6.7 g/dL (6.0-8.3)
[2020-04-30] MEDS: CLINDAMYCIN IVPB 600MG/50ML 50 ML IV SCH ×3 (04:54→21:46)
[2020-04-30] MEDS: CEFTAZIDIME PENTAHYDRATE 1 GM/VIAL IVP SCH ×3 (04:54→21:46)
[2020-04-30] MEDS: DEXTROSE 5%-LACTATED RINGERS 1,000 ML IV SCH ×3 (05:51→22:19)
[2020-04-30 07:00] VITALS: BP 119/53
[2020-04-30] MEDS: ENOXAPARIN SODIUM 80 MG/0.8 ML SQ SCH ×2 (09:37→21:46)
[2020-04-30] MEDS: PANTOPRAZOLE 40 MG TAB DR PO SCH (09:38)
[2020-04-30] MEDS: MAGNESIUM 2GM PREMIX 50ML 50 ML IV PRN (10:21)
[2020-04-30 11:30] VITALS: BP 136/69
[2020-04-30 15:30] VITALS: BP 128/83
[2020-04-30 20:00] VITALS: BP 162/97
[2020-04-30 23:59] VITALS: BP 124/73
[2020-05-01] MEDS: CLINIMIX-E 5%AA /D15%W 2000ML 2,000 ML IV NR
[2020-05-01 04:00] VITALS: BP 117/62
[2020-05-01] MEDS: CLINDAMYCIN IVPB 600MG/50ML 50 ML IV SCH ×3 (05:04→20:09)
[2020-05-01] MEDS: CEFTAZIDIME PENTAHYDRATE 1 GM/VIAL IVP SCH ×3 (05:04→20:09)
[2020-05-01] MEDS: HYDROMORPHONE 0.5 MG SYG (0.5MG/0.5ML) IVP PRN ×2 (05:04→20:30)
[2020-05-01 05:46] LABS: MAGNESIUM 1.9 mg/dL (1.80-2.40); POTASSIUM 4.3 mmol/L (3.5-5.1)
[2020-05-01] MEDS: MAGNESIUM 2GM PREMIX 50ML 50 ML IV PRN (06:28)
[2020-05-01 08:00] VITALS: BP 138/56
[2020-05-01] MEDS: PANTOPRAZOLE 40 MG TAB DR PO SCH (09:30)
[2020-05-01] MEDS: ENOXAPARIN SODIUM 80 MG/0.8 ML SQ SCH ×2 (09:30→20:10)
[2020-05-01 12:05] VITALS: BP 134/67
[2020-05-01 16:00] VITALS: BP 103/70
[2020-05-01 20:00] VITALS: BP 122/66
[2020-05-01] MEDS: FAT EMULSIONS 20% 250ML 250 ML IV SCH (20:10)
[2020-05-01] MEDS: DEXTROSE 5%-LACTATED RINGERS 1,000 ML IV SCH (20:17)
[2020-05-01 23:54] VITALS: BP 122/54
[2020-05-02] MEDS: HYDROMORPHONE 0.5 MG SYG (0.5MG/0.5ML) IVP PRN ×5 (03:44→23:04)
[2020-05-02 04:00] VITALS: BP 129/71
[2020-05-02] MEDS: CLINDAMYCIN IVPB 600MG/50ML 50 ML IV SCH ×3 (05:27→23:03)
[2020-05-02] MEDS: CEFTAZIDIME PENTAHYDRATE 1 GM/VIAL IVP SCH ×3 (05:27→23:03)
[2020-05-02 08:00] VITALS: BP 113/58
[2020-05-02] MEDS: PANTOPRAZOLE 40 MG TAB DR PO SCH (11:01)
[2020-05-02] MEDS: ENOXAPARIN SODIUM 80 MG/0.8 ML SQ SCH ×2 (11:02→23:03)
[2020-05-02 12:00] VITALS: BP 126/72
[2020-05-02] MEDS: CLINIMIX-E 5%AA /D15%W 2000ML 2,000 ML IV NR (14:02)
[2020-05-02] MEDS: DEXTROSE 5%-LACTATED RINGERS 1,000 ML IV SCH (14:22)
[2020-05-02 16:00] VITALS: BP 132/60
[2020-05-02 21:29] VITALS: BP 129/64
[2020-05-02] MEDS: ACETAMINOPHEN 325 MG TAB PO PRN (23:04)
[2020-05-03 00:17] VITALS: BP 114/57
[2020-05-03] MEDS: DEXTROSE 5%-LACTATED RINGERS 1,000 ML IV SCH ×2 (02:27→17:24)
[2020-05-03] MEDS: HYDROMORPHONE 0.5 MG SYG (0.5MG/0.5ML) IVP PRN ×4 (02:33→21:21)
[2020-05-03 03:56] VITALS: BP 127/59
[2020-05-03] MEDS: KETOROLAC 30MG VIAL (30MG/ML) IV PRN ×2 (04:50→17:23)
[2020-05-03] MEDS: CLINDAMYCIN IVPB 600MG/50ML 50 ML IV SCH (06:55)
[2020-05-03] MEDS: CEFTAZIDIME PENTAHYDRATE 1 GM/VIAL IVP SCH (06:55)
[2020-05-03 08:27] VITALS: BP 115/55
[2020-05-03] MEDS: ENOXAPARIN SODIUM 80 MG/0.8 ML SQ SCH ×2 (08:53→20:29)
[2020-05-03] MEDS: PANTOPRAZOLE 40 MG TAB DR PO SCH (08:53)
[2020-05-03 12:00] VITALS: BP 159/87
[2020-05-03 16:00] VITALS: BP 124/56
[2020-05-03 20:07] VITALS: BP 114/53
[2020-05-04 00:17] VITALS: BP 114/53
[2020-05-04] MEDS: HYDROMORPHONE 0.5 MG SYG (0.5MG/0.5ML) IVP PRN ×5 (02:52→20:51)
[2020-05-04 03:43] VITALS: BP 120/54
[2020-05-04] MEDS: DEXTROSE 5%-LACTATED RINGERS 1,000 ML IV SCH ×2 (04:05→17:25)
[2020-05-04 08:00] VITALS: BP 124/64
[2020-05-04] MEDS: ENOXAPARIN SODIUM 80 MG/0.8 ML SQ SCH ×2 (09:00→20:50)
[2020-05-04] MEDS: PANTOPRAZOLE 40 MG TAB DR PO SCH (09:00)
[2020-05-04 11:38] VITALS: BP 125/59
[2020-05-04] MEDS: FAT EMULSIONS 20% 250ML 250 ML IV SCH (14:29)
[2020-05-04 17:07] VITALS: BP 129/55
[2020-05-04] MEDS ORDERED: DIPHENHYDRAMINE HCL 25 MG CAPSULE PO PRN (20:30)
[2020-05-04] MEDS ORDERED: DiphenhydrAMINE HCL 50 MG/ML VIAL IV PRN (20:30)
[2020-05-04 20:54] VITALS: BP 130/56
[2020-05-04] MEDS ORDERED: CLINIMIX-E 5%AA /D15%W 2000ML 2,000 ML IV ONE (21:00)
[2020-05-04] MEDS: AMITRIPTYLINE 25 MG TABLET PO SCH (21:14)
[2020-05-04] MEDS: AMOX/CLAV 500/125MG TAB PO SCH (21:17)
[2020-05-05] VITALS (7 sets, daily range): BP systolic 112–140; BP diastolic 60–70
[2020-05-05] MEDS: HYDROMORPHONE 0.5 MG SYG (0.5MG/0.5ML) IVP PRN ×5 (01:19→21:14)
[2020-05-05] MEDS: DEXTROSE 5%-LACTATED RINGERS 1,000 ML IV SCH ×2 (04:46→20:05)
[2020-05-05 05:20] LABS: HEMATOCRIT 30.7 % (42-54); MEAN CORPUSCULAR HEMOGLOBIN 25.9 pg (27.0-33.0); MEAN CORPUSCULAR HGB CONC 31.9 g/dL (32.0-36.0); RED BLOOD CELL COUNT(AUTO) 3.79 MIL/uL (4.50-6.20); RED CELL DISTRIBUTION WIDTH 21.3 % (11.0-15.5); WHITE BLOOD COUNT (AUTO) 9.3 K/uL (4.8-10.8)
[2020-05-05 05:43] LABS: CREATININE 0.8 mg/dL (0.5-1.5); POTASSIUM 4.5 mmol/L (3.5-5.1)
[2020-05-05] MEDS: AMOX/CLAV 500/125MG TAB PO SCH ×2 (09:14→21:14)
[2020-05-05] MEDS: PANTOPRAZOLE 40 MG TAB DR PO SCH (09:14)
[2020-05-05] MEDS ORDERED: CLINIMIX-E 5%AA /D15%W 2000ML 2,000 ML IV ONE (21:00)
[2020-05-05] MEDS: AMITRIPTYLINE 25 MG TABLET PO SCH (21:14)
[2020-05-06 00:55] VITALS: BP 123/61
[2020-05-06] MEDS: HYDROMORPHONE 0.5 MG SYG (0.5MG/0.5ML) IVP PRN ×4 (02:46→19:12)
[2020-05-06 04:47] VITALS: BP 128/62
[2020-05-06 06:41] LABS: HEMATOCRIT 30.5 % (42-54); MEAN CORPUSCULAR HEMOGLOBIN 26.1 pg (27.0-33.0); MEAN CORPUSCULAR HGB CONC 32.1 g/dL (32.0-36.0); MEAN CORPUSCULAR VOLUME 81.1 fL (79-99); PLATELET COUNT (AUTO) 216 K/uL (130-400); RED BLOOD CELL COUNT(AUTO) 3.76 MIL/uL (4.50-6.20)
[2020-05-06 06:46] LABS: CREATININE 0.7 mg/dL (0.5-1.5); MAGNESIUM 1.8 mg/dL (1.80-2.40); POTASSIUM 4.4 mmol/L (3.5-5.1)
[2020-05-06 08:30] VITALS: BP 129/68
[2020-05-06] MEDS: PANTOPRAZOLE 40 MG TAB DR PO SCH (11:15)
[2020-05-06] MEDS: AMOX/CLAV 500/125MG TAB PO SCH ×2 (11:16→22:15)
[2020-05-06] MEDS: FAT EMULSIONS 20% 250ML 250 ML IV SCH (11:16)
[2020-05-06 11:49] VITALS: BP 127/68
[2020-05-06 17:05] VITALS: BP 121/68
[2020-05-06] MEDS: DEXTROSE 5%-LACTATED RINGERS 1,000 ML IV SCH ×2 (18:53→22:16)
[2020-05-06 20:00] VITALS: BP 135/75
[2020-05-06] MEDS: MAGNESIUM 2GM PREMIX 50ML 50 ML IV PRN (20:46)
[2020-05-06] MEDS: AMITRIPTYLINE 25 MG TABLET PO SCH (22:15)
[2020-05-07] VITALS: BP 130/72
[2020-05-07] MEDS: HYDROMORPHONE 0.5 MG SYG (0.5MG/0.5ML) IVP PRN ×2 (01:08→09:18)
[2020-05-07 04:00] VITALS: BP 124/61
[2020-05-07 06:09] LABS: HEMATOCRIT 29.4 % (42-54); MEAN CORPUSCULAR HEMOGLOBIN 25.7 pg (27.0-33.0); MEAN CORPUSCULAR HGB CONC 32.3 g/dL (32.0-36.0); MEAN CORPUSCULAR VOLUME 79.5 fL (79-99); RED BLOOD CELL COUNT(AUTO) 3.7 MIL/uL (4.50-6.20); RED CELL DISTRIBUTION WIDTH 20.7 % (11.0-15.5)
[2020-05-07 06:29] LABS: CREATININE 0.7 mg/dL (0.5-1.5); MAGNESIUM 2.1 mg/dL (1.80-2.40); POTASSIUM 4.1 mmol/L (3.5-5.1)
[2020-05-07 08:00] VITALS: BP 127/60
[2020-05-07] MEDS ORDERED: CLINIMIX-E 5%AA /D15%W 2000ML 2,000 ML IV NR (09:00)
[2020-05-07] MEDS: PANTOPRAZOLE 40 MG TAB DR PO SCH (09:16)
[2020-05-07] MEDS: AMOX/CLAV 500/125MG TAB PO SCH (09:16)
[2020-05-07] MEDS ORDERED: ACET1TAB25 PO (09:59)
[2020-05-07] MEDS ORDERED: PANT40TA PO (09:59)
[2020-05-07 12:01] VITALS: BP 134/82
== END 2020-05-07 15:30 | disposition home health service (06) | DRG 394 ==
LOC: EDH 00:24 → OBSVTOIN 06:20 → EDHIP 06:20 → 3CH 08:41
PROVIDERS: ADMIT Internal Medicine Critical Care Medicine; ATTEND Internal Medicine Critical Care Medicine
PROC: 0D9670Z Drainage of Stomach with Drainage Device, Via Natural or Artificial Opening (ICD-10-PCS; 2020-04-18)
PROC: 02H633Z Insertion of Infusion Device into Right Atrium, Percutaneous Approach (ICD-10-PCS; principal; 2020-04-26)
DX: K63.2 Fistula of intestine (principal); K56.609 Unspecified intestinal obstruction, unspecified as to partial versus complete obstruction; K21.9 Gastro-esophageal reflux disease without esophagitis; Z88.8 Allergy status to other drugs, medicaments and biological substances; Z85.038 Personal history of other malignant neoplasm of large intestine; Z79.01 Long term (current) use of anticoagulants; Z86.14 Personal history of Methicillin resistant Staphylococcus aureus infection; Z87.11 Personal history of peptic ulcer disease; Z92.21 Personal history of antineoplastic chemotherapy; Z88.9 Allergy status to unspecified drugs, medicaments and biological substances
CPT/HCPCS: 36415; 70360; 71045; 74018; 74021; 74176; 74177; 76080; 80048; 80053; 80061; 81003; 82948; 83690; 83735; 84100; 84132; 85025; 85027; 85049; 85610; 85730; 87040; C1894; C9113; G0378; J0692; J0713; J1170; J1650; J1885; J2175; J2270; J2405; J3370; J3475; J3480; J3490; J7030; J7040; J7050; Q9963; Q9967